=== PATIENT | female | born 1950 | race Caucasian/White ===

== ENCOUNTER → 2016-07-19 | Outpatient (CLI) | payer MEDICARE ==
[2016-07-19 08:09] LABS: Anion Gap 14 mmol/L; Blood Urea Nitrogen 18 mg/dL (7-17); Carbon Dioxide 26 mmol/L (22-30); Chloride 102 mmol/L (98-107); Glucose 179 mg/dL (74-99); Non-African American GFR(MDRD) >60 (>60 ml/min/1.73 sqM); Potassium 3.9 mmol/L (3.5-5.1); Sodium 142 mmol/L (137-145)
[2016-07-19 08:10] LABS: Hemoglobin A1C 7.7 % (4.2-6.1)
== END | disposition home or self-care (01) ==
LOC: LABWHC1 06:34
PROVIDERS: ATTEND Internal Medicine
DX: E11.65 Type 2 diabetes mellitus with hyperglycemia (principal)
CPT/HCPCS: 36415; 80048; 83036

== ENCOUNTER → 2017-02-06 | Outpatient (CLI) | payer MEDICARE ==
[2017-02-06 13:33] LABS: Blood Urea Nitrogen 17 mg/dL (7-17)
--- NOTE | 2017-02-06 14:45 | CT ---
EXAMINATION TYPE: CT urogram wo/w con DATE OF EXAM: 02/06/2017 COMPARISON: NONE HISTORY: Patient complains of gross hematuria x1 month. CT DLP: 3532.5 mGycm CONTRAST: Performed and with IV Contrast, patient injected with 100 mL of Omnipaque 300. CT Urography was performed with unenhanced followed by enhanced images of the kidneys, ureters and ur inary bladder. Delayed images were obtained. 3d reconstruction was perfromed at a separate work sta tion. FINDINGS: KIDNEYS/BLADDER: Large calculus within the right renal pelvis measuring 2.5 x 1.2 cm without signific ant obstructive change. There is evidence of urothelial thickening which may reflect chronic infectio n. Multiple Additional calculi may and lower pole right kidney measuring up to 7 mm. No evidence for left-sided calculus. No solid or cystic renal lesions detected. Ureters are patent bilaterally althou gh again there is right-sided urothelial thickening. Urinary bladder is unremarkable. LUNG BASES-: No visible nodule. No infiltrate. LIVER/GB: Hepatic steatosis noted. The gallbladder surgically absent. No space occupying hepatic lesion. Biliary tree is of normal caliber. PANCREAS: No inflammation. No distinct mass. SPLEEN: No splenic enlargement. No lesion seen. ADRENALS: No nodule. No thickening. BOWEL: Normal appendix. Normal bowel caliber. No inflammation. GENITAL ORGANS: No gross abnormality. LYMPH NODES: No greater than 1cm abdominal or pelvic lymph nodes are appreciated. AORTA: No significant abnormality. OSSEOUS STRUCTURES: No significant abnormality is seen. OTHER: No significant additional abnormality is seen. IMPRESSION: 1. Large calculus in the region of the right renal pelvis without obstruction. Additional right-sided renal calculi as noted. 2. Areas of urothelial thickening right renal pelvis and right ureter may reflect chronic infection.
== END | disposition home or self-care (01) ==
LOC: RADCTMAIN 13:00
PROVIDERS: ATTEND Urology
DX: N20.0 Calculus of kidney (principal); N28.89 Other specified disorders of kidney and ureter
CPT/HCPCS: 82565; 84520; 74178; 36415; 74400; Q9967

== ENCOUNTER → 2017-02-21 | Outpatient (CLI) | payer MEDICARE ==
[2017-02-21 10:52] LABS: Basophils # (A) 0.1 k/uL (0-0.2); Basophils % (A) 1 %; Eosinophils # (A) 0.1 k/uL (0-0.7); Eosinophils % (A) 2 %; HCT 44.6 % (34.0-46.0); HGB 14.6 gm/dL (11.4-16.0); Lymphocytes # (A) 1.8 k/uL (1.0-4.8); Lymphocytes % (A) 28 %; MCH 29.2 pg (25.0-35.0); MCHC 32.8 g/dL (31.0-37.0); MCV 88.9 fL (80.0-100.0); Monocytes # (A) 0.4 k/uL (0-1.0); Monocytes % (A) 6 %; Neutrophils % (A) 62 %; Platelet Count 285 k/uL (150-450); RBC 5.02 m/uL (3.80-5.40); RDW 13.5 % (11.5-15.5); WBC 6.5 k/uL (3.8-10.6)
[2017-02-21 11:01] LABS: Anion Gap 12 mmol/L; Blood Urea Nitrogen 16 mg/dL (7-17); Calcium 10.1 mg/dL (8.4-10.2); Carbon Dioxide 28 mmol/L (22-30); Chloride 101 mmol/L (98-107); Glucose 261 mg/dL (74-99); Potassium 4.4 mmol/L (3.5-5.1); Sodium 141 mmol/L (137-145)
[2017-02-21 11:37] LABS: Appearance,Urine Cloudy (Clear); Bilirubin,Urine Negative (Negative); Blood,Urine Moderate (Negative); Color,Urine Yellow; Glucose,Urine (UA) 4+ (Negative); Ketones,Urine Trace (Negative); Leukocyte Esterase,Urine Negative (Negative); Mucus,Urine Rare /hpf; Nitrite,Urine Negative (Negative); PH, Urine 5.5 (5.0-8.0); Protein,Urine 1+ (Negative); RBC,Urine >182 /hpf (0-5); Specific Gravity,Urine 1.013 (1.001-1.035); Uric Acid Crystals,Urine Few /hpf; Urobilinogen,Urine <2.0 mg/dL (<2.0); WBC,Urine 2 /hpf (0-5)
== END | disposition home or self-care (01) ==
LOC: LABPAT 10:00
PROVIDERS: ATTEND Urology
DX: Z01.818 Encounter for other preprocedural examination (principal); E11.9 Type 2 diabetes mellitus without complications; N20.0 Calculus of kidney; I10 Essential (primary) hypertension; R35.0 Frequency of micturition; R31.29 Other microscopic hematuria
CPT/HCPCS: 36415; 80048; 81001; 85025; 86850; 86900; 86901; 87086; 93005

== ENCOUNTER 2017-02-28 05:49 | Day surgery (SDC) | payer MEDICARE ==
[2017-02-20 12:00] VITALS: BMI 36.6
[~2017-02-28 05:49] MED LIST: LACTATED RINGERS 1,000 ML IV SCH; ONDANSETRON 4 MG/2 ML VIAL IVP PRN; ceFAZolin 1,000 MG in DEXTROSE/WATER 1 50ML.BAG IV ONE; fentaNYL (PF) 50 MCG/ML 2 ML AMP IV PRN
[2017-02-28 06:32] LABS: Glucose,Whole Blood 241 mg/dL (75-99)
[2017-02-28] MEDS ORDERED: INSULIN ASPART 100 UNIT/ML 1 ML 10 ML VIAL SQ ONE (07:12)
[2017-02-28] MEDS ORDERED: PROPOFOL 10 MG/ML 20 ML VIAL IV ONE (07:24)
[2017-02-28] MEDS ORDERED: fentaNYL (PF) 50 MCG/ML 2 ML AMP ONE (07:24)
[2017-02-28] MEDS ORDERED: NEOSTIGMINE 1 MG/ML 10 ML VIAL ONE (07:24)
[2017-02-28] MEDS ORDERED: MIDAZOLAM 2 MG/2 ML VIAL ONE (07:24)
[2017-02-28] MEDS ORDERED: LIDOCAINE 1% INJ 10MG/ML (20 ML MDV) ONE (07:24)
[2017-02-28] MEDS ORDERED: SUCCINYLCHOLINE CHLORIDE 100 MG/5 ML SYR IV ONE (07:24)
[2017-02-28] MEDS ORDERED: ROCURONIUM BROMIDE 10 MG/ML 10 ML VIAL IV ONE (07:24)
[2017-02-28] MEDS ORDERED: GLYCOPYRROLATE 0.2 MG/ML 2 ML VIAL ONE (07:24)
[2017-02-28] MEDS ORDERED: IOHEXOL 350 MG/ML (PER ML) 100ML BTL MISCELLANE ONE (07:53)
[2017-02-28] MEDS ORDERED: SODIUM CHLORIDE 0.9% 1,000 ML BAG IV ONE (07:53)
--- NOTE | 2017-02-28 08:01 | XR ---
EXAMINATION TYPE: XR KUB DATE OF EXAM: 02/28/2017 6:40 AM CLINICAL HISTORY: Presurgical study. Right-sided kidney stones. TECHNIQUE: Two supine KUB images of the abdomen are obtained. COMPARISON: CT urogram February 06, 2017 FINDINGS: Large right staghorn calculus is less well-seen but still felt present L4 level measuring r oughly 2.5 cm transversely. Smaller calculi lower pole level are redemonstrated, approximately 3-5 ca lculi are confirmed on CT. No left-sided nephrolithiasis. A few pelvic phleboliths are noted. There is overall nonobstructive bowel gas pattern. Visualized osseous structures are intact. Moderate joint space loss and mild spurring in both hips is seen. IMPRESSION: Right-sided nephrolithiasis likely stable.
[2017-02-28] MEDS ORDERED: MAG HYDROX/AL HYDROX/SIMETH 30 ML CUP PO PRN (09:02)
[2017-02-28] MEDS ORDERED: ONDANSETRON 4 MG/2 ML VIAL IVP PRN (09:02)
[2017-02-28] MEDS ORDERED: ACETAMINOPHEN TAB 325 MG TAB PO PRN (09:02)
[2017-02-28] MEDS ORDERED: NALOXONE 0.4 MG/ML 1 ML VIAL IV PRN (09:04)
[2017-02-28] MEDS ORDERED: HYDROmorphone PCA 5 MG/25 ML SYRINGE IV PRN (09:04)
[2017-02-28] MEDS ORDERED: KETOROLAC 30 MG/ML 1 ML VIAL IVP PRN (09:04)
--- NOTE | 2017-02-28 09:11 | P.OP ---
Date of Procedure: 02/28/17 Preoperative Diagnosis: Right renal calculus large Postoperative Diagnosis: same Procedure(s) Performed: Cystoscopy, placement of occluding balloon catheter right, percutaneous nephrostomy (Dr. Cohn) percutaneous nephrostolithotomy with ultrasound and laser of 10-Lao J nephrostomy tube. Anesthesia: GETA Surgeon: Harry Benitez Estimated Blood Loss (ml): 50 Pathology: other (Stone) Condition: stable Disposition: PACU Indications for Procedure: The patient is a 66-year-old female with a history of uric acid nephrolithiasis. She came recently with gross hematuria. CT urogram identified a very large, 3 cm left renal stone with satellites. She comes for percutaneous nephrostolithotomy. Description of Procedure: The patient is brought to the operating suite she is given a general endotracheal anesthesia on the transport gurney. She's placed in a frog position with a sterile prep and drape. Cystoscopy with Foroblique lens and 22- Lao sheath identifies a normal urethra. The right ureteral orifice is identified and intubated with a occluding balloon catheter. The patient is placed in a prone position with care to airways and extremities. Dr. Cohn of radiology performed percutaneous access to the right lower pole calyx. The track was dilated to 30-Lao. I introduced the working sheath into the kidney. The semirigid scope I remove clot. The small lower pole fragments are identified and removed with grasping forceps. With ultrasound the large 3 cm renal pelvic stone was identified can and removed with either ultrasound or grasping forceps. Removing the large stone I passed the flexible nephroscope throughout the collecting system and with the stone basket remove 2 or 3 more fragments. The procedure there is no remaining fragments identified. A 10-Lao J nephrostomy tube was placed over the working wire. It coils in the renal pelvis confirmed fluoroscopically. It is secured to the skin with 2- 0 silk. The working sheath is removed. The patient's awake and returned recovery in good condition. Proximate 50 mL. She tolerated procedure well and will be in the hospital postoperatively.
[2017-02-28] MEDS ORDERED: LABETALOL SYRINGE 5 MG/ML IVP ONE ×3 (09:28→11:20)
[2017-02-28 09:47] LABS: Glucose,Whole Blood 277 mg/dL (75-99)
[2017-02-28] MEDS ORDERED: HYDROmorphone 2 MG/ML 1 ML SYRINGE IVP ONE ×4 (09:55→12:49)
[2017-02-28] MEDS ORDERED: ONDANSETRON 4 MG/2 ML VIAL IVP ONE (09:55)
--- NOTE | 2017-02-28 09:58 | FL ---
EXAMINATION TYPE: FL Perc Nephrostomy New Access DATE OF EXAM: 02/28/2017 COMPARISON: CT 2017 HISTORY: Right kidney stone, ureteral obstruction with right staghorn calculus. PROCEDURE: Maximal barrier technique was utilized. The skin overlying the right kidney was localized using fluo roscopy and the overlying skin prepped and draped. Lidocaine used for local anesthesia. Skin brianna w as made with a scalpel. Access was gained under fluoroscopy, following placement of a ureteral occlu april balloon by the referring clinician and instillation of air in the renal collecting system with a 21-gauge needle to the kidney. A suitable posterior calyx was chosen. A 0.018 inch wire was Myla. The access site was dilated and subsequently a sheath was advanced into the renal pelvis follow ing dilation with balloon along the tract. Urine returned in the hub of the catheter. The patient und erwent nephrolithotomy by the referring clinician. The patient remained in stable condition without complication. The patient was discharged to observation. IMPRESSION: STATUS POST NEPHROSTOMY PLACEMENT FOR NEPHROLITHOTOMY WITH FLUOROSCOPIC GUIDANCE. THIS PROCEDURE PER FORMED BY THE UNDERSIGNED.
[2017-02-28] MEDS ORDERED: ENALAPRILAT 1.25 MG/ML 1 ML VIAL IVP ONE (10:12)
[2017-02-28] MEDS ORDERED: hydrALAZINE HCL 20 MG/ML 1 ML VIAL IVP ONE (10:34)
[2017-02-28] MEDS ORDERED: METOCLOPRAMIDE 5 MG/ML 2 ML VIAL IVP ONE (11:10)
[2017-02-28] MEDS: LACTATED RINGERS 1,000 ML IV SCH ×2 (14:03→14:05)
[2017-02-28] MEDS: INSULIN ASPART 100 UNIT/ML 1 ML 10 ML VIAL SQ SCH ×3 (14:04→20:45)
[2017-02-28] MEDS: SODIUM CHLORIDE 0.45% 1,000 ML IV SCH (14:15)
[2017-02-28 15:26] VITALS: RESP 18
[2017-02-28 16:48] LABS: Glucose,Whole Blood 289 mg/dL (75-99)
--- NOTE | 2017-02-28 17:32 | P.CONS ---
History of Present Illness - Reason for Consult Consult date: 02/28/17 medical management - Chief Complaint stone - History of Present Illness 66-year-old female that was admitted after cystoscopy included balloon catheter placement and percutaneous nephrostomy ,percutaneous nephrolithotomy. Patient admitted for surgery. Currently just complaining of some pain at the site where the nephrostomy tube was placed. Denies any chest pain or palpitations no shortness of breath. She says this has been diagnosed since Thanksgiving Review of Systems Constitutional: Denies chills, Denies fever Eyes: denies diplopia, denies itching Ears, nose, mouth and throat: Denies headache Cardiovascular: Denies chest pain, Denies shortness of breath Respiratory: Denies cough, Denies excessive sputum, Denies pleurisy Gastrointestinal: Reports nausea, Denies diarrhea, Denies hematochezia Genitourinary: Reports flank pain, Reports hematuria Musculoskeletal: Denies limitation of motion, Denies myalgias Integumentary: Denies pruritus, Denies rash Neurological: Denies head injury, Denies tingling, Denies vertigo Psychiatric: Denies depression Endocrine: Denies cold intolerance, Denies polyphagia, Denies polyuria Allergic/Immunologic: Denies urticaria, Denies wheezing Past Medical History Past Medical History: CVA/TIA, Diabetes Mellitus, Hypertension Additional Past Medical History / Comment(s): ?TIA (6 YRS AGO), PERICARDITIS., ARTHRITIS LOWER BACK., KIDNEY STONES. History of Any Multi-Drug Resistant Organisms: None Reported Past Surgical History: Section, Cholecystectomy, Joint Replacement, Orthopedic Surgery Additional Past Surgical History / Comment(s): CRISTINE KNEE ARTHROSCOPY, TOTAL RIGHT KNEE, LEFT ROTATOR CUFF, RIGHT FROZEN SHOULDER, EXP LAP WITH SCRAPING OF ENDOMETRIOSIS., RIGHT KIDNEY STONE SURGERY. Past Anesthesia/Blood Transfusion Reactions: No Reported Reaction Past Psychological History: No Psychological Hx Reported Smoking Status: Never smoker Past Alcohol Use History: Rare Past Drug Use History: None Reported - Past Family History Mother Family Medical History: No Reported History Medications and Allergies Home Medications Medication Instructions Recorded Confirmed Type Losartan/Hydrochlorothiazide 1 each PO DAILY 02/20/17 02/28/17 History [Losartan-Hctz 100-25 mg Tab] Metoprolol Succinate (ER) [Toprol 100 mg PO DAILY 02/20/17 02/28/17 History Xl] cloNIDine HCL [Catapres] 0.1 mg PO BID 02/20/17 02/28/17 History glipiZIDE [Glucotrol] 5 mg PO BID 02/20/17 02/28/17 History metFORMIN HCL [Glucophage] 1,000 mg PO BID 02/20/17 02/28/17 History Allergies Allergy/AdvReac Type Severity Reaction Status Date / Time No Known Allergies Allergy Verified 02/28/17 06:18 Physical Exam Vitals: Vital Signs Temp Pulse Resp BP BP Pulse Ox 02/28/17 15:26 97.7 F 90 18 183/97 96 02/28/17 13:15 86 16 141/65 94 L 02/28/17 13:10 83 18 146/64 94 L 02/28/17 12:15 85 16 169/65 95 02/28/17 12:00 83 16 155/66 95 02/28/17 11:30 80 16 177/82 95 02/28/17 11:23 82 16 192/86 94 L 02/28/17 11:00 82 16 181/80 96 02/28/17 10:22 75 16 195/93 94 L 02/28/17 10:00 73 18 182/84 96 02/28/17 09:30 78 18 165/81 94 L 02/28/17 09:24 78 16 178/85 94 L 02/28/17 09:15 79 16 179/91 93 L 02/28/17 09:00 98.0 F 79 16 188/95 94 L 02/28/17 06:26 97.5 F L 89 16 163/90 94 L Intake and Output 02/28/17 02/28/17 02/28/17 06:59 14:59 22:59 Intake Total 100 700 Output Total 1075 Balance 100 -375 Intake: IV 100 700 Output: Urine 900 Estimated Blood Loss 175 Other: Voiding Method Indwelling Catheter Weight 99.79 kg Patient Weight 03/01/17 06:59 Weight 99.79 kg - Constitutional General appearance: no acute distress - EENT Eyes: EOMI, PERRLA - Neck Neck: no lymphadenopathy, normal ROM, no rigidity - Respiratory Respiratory: bilateral: CTA, negative: rales, rhonchi, wheezing - Cardiovascular Rhythm: regular Heart sounds: normal: S1, S2 - Gastrointestinal General gastrointestinal: normal bowel sounds - Integumentary Integumentary: no cellulitis, normal, no pale, no rash - Neurologic Neurologic: CNII-XII intact - Musculoskeletal Musculoskeletal: gait normal - Psychiatric Psychiatric: A&O x's 3, appropriate affect, intact judgment & insight Results Labs: Abnormal Lab Results - Last 24 Hours (Table) 02/28/17 02/28/17 02/28/17 Range/Units 06:24 09:36 16:46 POC Glucose (mg/dL) 241 H 277 H 289 H (75-99) mg/dL Assessment and Plan (1) Renal calculus Narrative/Plan: s/p nephrostomy tube s/p nephrolithotomy per Dr Russell Current Visit: Yes Status: Acute Code(s): N20.0 - CALCULUS OF KIDNEY SNOMED Code(s): 50240465 (2) Diabetes mellitus Narrative/Plan: acck ac and Hs on metformin,glipizide Current Visit: Yes Status: Acute Code(s): E11.9 - TYPE 2 DIABETES MELLITUS WITHOUT COMPLICATIONS SNOMED Code(s): 87187097 (3) Hypertension Narrative/Plan: uncontrolled continue toprolxl,clonidine,losartan/hctz Current Visit: Yes Status: Acute Code(s): I10 - ESSENTIAL (PRIMARY) HYPERTENSION SNOMED Code(s): 05858459
[2017-02-28] MEDS: cloNIDine HCL 0.1 MG TAB PO SCH (20:02)
[2017-02-28 20:34] LABS: Glucose,Whole Blood 253 mg/dL (75-99)
[2017-02-28] MEDS: glipiZIDE 5 MG TAB PO SCH (20:37)
[2017-03-01] MEDS: SODIUM CHLORIDE 0.45% 1,000 ML IV SCH ×2 (00:12→12:38)
[2017-03-01] MEDS ORDERED: cloNIDine HCL 0.2 MG TAB PO STA (00:22)
[2017-03-01 06:10] LABS: Glucose,Whole Blood 183 mg/dL (75-99)
[2017-03-01] MEDS: INSULIN ASPART 100 UNIT/ML 1 ML 10 ML VIAL SQ SCH ×2 (06:34→12:37)
[2017-03-01] MEDS ORDERED: METOPROLOL SUCCINATE (ER) 100 MG TAB.ER.24H PO SCH (09:00)
[2017-03-01] MEDS ORDERED: LOSARTAN-HCTZ 50-12.5 MG 1 EACH TAB PO SCH (09:00)
[2017-03-01] MEDS: cloNIDine HCL 0.1 MG TAB PO SCH (10:00)
[2017-03-01] MEDS: glipiZIDE 5 MG TAB PO SCH (10:01)
--- NOTE | 2017-03-01 11:09 | P.PN ---
Subjective Progress Note Date: 03/01/17 Principal diagnosis: humeral fracture Pain better controlled, no nausea, no vomiting Objective - Vital Signs Vital signs: Vital Signs Temp 97.8 F 03/01/17 08:00 Pulse 72 03/01/17 10:09 Resp 18 03/01/17 10:09 BP 121/51 03/01/17 08:00 Pulse Ox 95 03/01/17 08:00 Intake & Output 02/28/17 03/01/17 03/01/17 18:59 06:59 18:59 Intake Total 383 667 6296 Output Total 1475 1475 Balance -685 -650 1020 Weight 99.79 kg 99.2 kg Intake: IV 700 Intake, IV Titration 825 Amount Sodium Chloride 0.45% 1, 825 000 ml @ 75 mls/hr IV . [id number] DORIS Rx#:[id number] Oral 90 1020 Output: Drainage 275 Right 275 Urine 1300 1200 Estimated Blood Loss 175 Other: Voiding Method Indwelling Catheter Indwelling Catheter Indwelling Catheter - Exam gen:alert ox3 lungs:CTAx2 heart s1s2 abd:soft and dep ext: no edema - Labs Labs: Abnormal Lab Results - Last 24 Hours (Table) 02/28/17 02/28/17 03/01/17 Range/Units 16:46 20:33 06:09 POC Glucose (mg/dL) 289 H 253 H 183 H (75-99) mg/dL Assessment and Plan (1) Renal calculus Narrative/Plan: s/p nephrostomy tube s/p nephrolithotomy per Dr Russell Current Visit: Yes Status: Acute Code(s): N20.0 - CALCULUS OF KIDNEY SNOMED Code(s): 60611749 (2) Diabetes mellitus Narrative/Plan: uncontrolled patient says that she has been trying with Dr Gregory her PCP. Her diabetes has been uncontrolled for some time. She says they have been tryimg. She would like to follow up with regarding this issue Current Visit: Yes Status: Acute Code(s): E11.9 - TYPE 2 DIABETES MELLITUS WITHOUT COMPLICATIONS SNOMED Code(s): 81451586 (3) Hypertension Narrative/Plan: controlled continue toprolxl,clonidine,losartan/hctz Current Visit: Yes Status: Acute Code(s): I10 - ESSENTIAL (PRIMARY) HYPERTENSION SNOMED Code(s): 02164386
[2017-03-01 11:27] VITALS: BP 116/64; PULSE 60; TEMP 96.7
[2017-03-01 11:30] LABS: Glucose,Whole Blood 268 mg/dL (75-99)
--- NOTE | 2017-03-01 12:35 | P.DS ---
Providers Attending physician: Harry Benitez Consults: 02/28/17 12:32 Consult Physician Urgent Consulting Provider: Zoë Varela Consult Reason/Comments: MEDICAL MANAGEMENT Do you want consulting provider notified?: Yes Primary care physician: [facility] Course: The patient was brought into the hospital [id number] for a right percutaneous nephrostolithotomy. She underwent this uneventfully. She did have perioperative hypertension. She was seen by medicine for Dr. Gregory. Her blood pressure has normalized. She will be discharged home on the same medications that she was on at home. A prescription for Tylenol with Codeine has been written. She will go home with the nephrostomy tube. She'll follow- up Sunday for nephrostomy tube removal. Postoperative instructions have been given. Condition is good. Patient Condition at Discharge: Good Plan - Discharge Summary Discharge Rx Participant: No New Discharge Prescriptions: New Acetaminophen-Codeine 300-30mg [Tylenol #3] 1 tab PO Q4H PRN #20 tablet PRN Reason: Pain No Action metFORMIN HCL [Glucophage] 1,000 mg PO BID glipiZIDE [Glucotrol] 5 mg PO BID cloNIDine HCL [Catapres] 0.1 mg PO BID Metoprolol Succinate (ER) [Toprol Xl] 100 mg PO DAILY Losartan/Hydrochlorothiazide [Losartan-Hctz 100-25 mg Tab] 1 each PO DAILY Discharge Medication List Losartan/Hydrochlorothiazide [Losartan-Hctz 100-25 mg Tab] 1 each PO DAILY 02/20 [History] Metoprolol Succinate (ER) [Toprol Xl] 100 mg PO DAILY 02/20/17 [History] cloNIDine HCL [Catapres] 0.1 mg PO BID 02/20/17 [History] glipiZIDE [Glucotrol] 5 mg PO BID 02/20/17 [History] metFORMIN HCL [Glucophage] 1,000 mg PO BID 02/20/17 [History] Acetaminophen-Codeine 300-30mg [Tylenol #3] 1 tab PO Q4H PRN #20 tablet [Rx] Follow up Appointment(s)/Referral(s): Harry Benitez MD [STAFF PHYSICIAN] - 03/05/17 Activity/Diet/Wound Care/Special Instructions: Home with nephrostomy tube. May shower, cover dressing with plastic wrap or change dressing. Discharge Disposition: HOME SELF-CARE
[2017-03-01 17:14] LABS: Hemoglobin A1C 8.6 % (4.0-6.0)
[2017-03-02] MEDS ORDERED: metFORMIN 500 MG TAB PO SCH (07:30)
== END 2017-03-01 13:45 | disposition home or self-care (01) ==
LOC: OR 05:49 → 4FBP 08:52 → 6SEL 13:03 → OR 03-01 13:45
PROVIDERS: ATTEND Urology
DX: N20.0 Calculus of kidney (principal); I10 Essential (primary) hypertension; E11.65 Type 2 diabetes mellitus with hyperglycemia; Z79.84 Long term (current) use of oral hypoglycemic drugs; Z79.899 Other long term (current) drug therapy; Z86.73 Personal history of transient ischemic attack (TIA), and cerebral infarction without residual deficits
CPT/HCPCS: 82365; 83036; 50432; 74018; 50081; C1769 ×3; C2628; C1894; C1729; J2250; J1170; J0360; J2710; J2765; Q9967; J2405; J2001; J3010; J1885; J0330; J2704; 86850; 86900; 86901

== ENCOUNTER → 2017-12-06 | Outpatient (CLI) | payer MEDICARE ==
--- NOTE | 2017-12-07 11:50 | MM ---
Reason for exam: screening (asymptomatic). Last mammogram was performed 1 year and 1 month ago. History: Patient is postmenopausal. Physical Findings: A clinical breast exam by your physician is recommended on an annual basis and results should be correlated with mammographic findings. MG 3D Screening Mammo W/Cad Bilateral CC and MLO view(s) were taken. XCCL view(s) were taken of the right breast. Prior study comparison: November 08, 2016, mammogram, performed at [facility]. August 06, 2015, mammogram, performed at [facility]. There are scattered fibroglandular densities. There is a retroareolar 4mm mass upper outer quadrant on the left appears similar to the priors. No suspicious abnormality. No significant changes when compared with prior studies. ASSESSMENT: Benign, BI-RAD 2 RECOMMENDATION: Routine screening mammogram of both breasts in 1 year.
== END | disposition home or self-care (01) ==
LOC: RADMAMWWP 14:23
PROVIDERS: ATTEND Internal Medicine
DX: Z12.31 Encounter for screening mammogram for malignant neoplasm of breast (principal)
CPT/HCPCS: 77063; 77067

== ENCOUNTER → 2019-09-12 | Outpatient (CLI) | payer MEDICARE ==
--- NOTE | 2019-09-16 08:26 | MM ---
Reason for exam: screening (asymptomatic). Last mammogram was performed 1 year and 9 months ago. History: Patient is postmenopausal. Physical Findings: A clinical breast exam by your physician is recommended on an annual basis and results should be correlated with mammographic findings. MG Screening Mammo w CAD Bilateral CC and MLO view(s) were taken. Prior study comparison: December 06, 2017, bilateral MG 3d screening mammo w/cad. November 08, 2016, mammogram, performed at [facility]. There are scattered fibroglandular densities. Benign appearing bilateral calcifications. No significant changes when compared with prior studies. ASSESSMENT: Benign, BI-RAD 2 RECOMMENDATION: Routine screening mammogram of both breasts in 1 year.
== END | disposition home or self-care (01) ==
LOC: RADMAMWWP 07:32
PROVIDERS: ATTEND Internal Medicine
DX: Z12.31 Encounter for screening mammogram for malignant neoplasm of breast (principal)
CPT/HCPCS: 77067

== ENCOUNTER 2019-10-30 11:46 | Inpatient (IN) | payer MEDICARE ==
[2019-10-30] MEDS ORDERED: NITROGLYCERIN SL TABS 0.4 MG TAB SUBLINGUAL PRN ×2 (12:07→13:21)
[2019-10-30] MEDS ORDERED: ASPIRIN 81 MG PO STA (12:07)
[2019-10-30] MEDS ORDERED: HEPARIN SODIUM,PORCINE 5,000 UNIT/ML 1 ML VIAL IV STA (12:07)
--- NOTE | 2019-10-30 12:13 | ED ---
General Adult HPI - General Chief complaint: Chest Pain Stated complaint: Chest pain Time Seen by Provider: 10/30/19 12:04 Source: patient, family Mode of arrival: wheelchair Limitations: no limitations - History of Present Illness Initial comments: Dictation was produced using [employer] dictation software. please excuse any grammatical, word or spelling errors. This patient was cared for during a federal and state declared state of emergency secondary to Covid 19 Chief Complaint: 69-year-old male presents with chest pain since yesterday. History of Present Illness: 69-year-old female since yesterday she's been having chest pain. Patient states that the pain is like a pressure that radiates to her back and goes down her left upper extremity. She states like a pressure like sensation. She states that sometimes her some sharp component to it. Patient has history of pericarditis in 1997. She denies any history of coronary artery disease. She does not smoke. She has history of diabetes and hypertension and CVA. Patient states she does feel some slight nausea and clamminess however denies any overt diaphoresis. She denies any numbness to her arms or legs. The ROS documented in this emergency department record has been reviewed and confirmed by me. Those systems with pertinent positive or negative responses have been documented in the HPI. All other systems are other negative and/or noncontributory. PHYSICAL EXAM: General Impression: Alert and oriented x3, not in acute distress HEENT: Normocephalic atraumatic, extra-ocular movements intact, pupils equal and reactive to light bilaterally, mucous membranes moist. Cardiovascular: Heart regular rate and rhythm, no murmurs Chest: Able to complete full sentences, no retractions, no tachypnea, clear to auscultation bilaterally Abdomen: abdomen soft, non-tender, non-distended, no organomegaly Musculoskeletal: Pulses present and equal in all extremities, no peripheral edema Motor: no focal deficits noted Neurological: CN II-XII grossly intact, no focal motor or sensory deficits noted Skin: Intact with no visualized rashes Psych: Normal affect and mood ED course: 59 y old female presents with chest pain. As upon arrival shows heart rate of 109, worse vital signs within acceptable limits. Patient is not hypoxic. She does not appear dyspneic. EKG is concerning for ST segment elevation [place]. Code STEMI was paged. Patient given aspirin and started on heparin. Patient will be admitted to [facility]. 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 EKG interpretation: Ventricular rate 108, sinus tachycardia, NH interval 180, QRS 104, QTC 477. No NH prolongation, no QTC prolongation. Diffuse ST elevations in V2 through V6 with depressions in inferior leads. - Related Data Home Medications Medication Instructions Recorded Confirmed Losartan/Hydrochlorothiazide 1 each PO DAILY 02/20/17 12/24/18 [Losartan-Hctz 100-25 mg Tab] Metoprolol Succinate (ER) [Toprol 100 mg PO DAILY 02/20/17 12/24/18 Xl] cloNIDine HCL [Catapres] 0.1 mg PO BID 02/20/17 12/24/18 glipiZIDE [Glucotrol] 5 mg PO BID 02/20/17 12/24/18 metFORMIN HCL [Glucophage] 1,000 mg PO BID 02/20/17 12/24/18 Cinnamon Bark [Cinnamon] 1 tab PO DAILY 12/24/18 12/24/18 Previous Rx's Medication Instructions Recorded Acetaminophen-Codeine 300-30mg 1 tab PO Q4H PRN #20 tablet 03/01/17 [Tylenol #3] Allergies Allergy/AdvReac Type Severity Reaction Status Date / Time No Known Allergies Allergy Verified 10/30/19 11:50 Review of Systems ROS Statement: Those systems with pertinent positive or pertinent negative responses have been documented in the HPI. ROS Other: All systems not noted in ROS Statement are negative. Past Medical History Past Medical History: CVA/TIA, Diabetes Mellitus, Hypertension Additional Past Medical History / Comment(s): ?TIA (6 YRS AGO), PERICARDITIS., ARTHRITIS LOWER BACK., KIDNEY STONES. History of Any Multi-Drug Resistant Organisms: None Reported Past Surgical History: Section, Cholecystectomy, Joint Replacement, Orthopedic Surgery Additional Past Surgical History / Comment(s): CRISTINE KNEE ARTHROSCOPY, TOTAL RIGHT KNEE, LEFT ROTATOR CUFF, RIGHT FROZEN SHOULDER, EXP LAP WITH SCRAPING OF ENDOMETRIOSIS., RIGHT KIDNEY STONE SURGERY. Past Anesthesia/Blood Transfusion Reactions: No Reported Reaction Past Psychological History: No Psychological Hx Reported Smoking Status: Never smoker Past Alcohol Use History: Rare Past Drug Use History: None Reported - Past Family History Mother Family Medical History: No Reported History General Exam Limitations: no limitations Course Vital Signs 10/30/19 11:47 Temperature 98.4 F Pulse Rate 109 H Respiratory 18 Rate Blood Pressure 160/86 O2 Sat by Pulse 96 Oximetry Disposition Clinical Impression: STEMI (ST elevation myocardial infarction) Disposition: ADMITTED IP TO THIS HOSP Condition: Critical Referrals: None,Stated [Primary Care Provider] - 1-2 days Decision Time: 12:19
[2019-10-30] MEDS ORDERED: ATORVASTATIN 80 MG TAB PO STA (12:15)
[2019-10-30] MEDS ORDERED: NALOXONE 0.4 MG/ML 1 ML VIAL IV PRN (12:16)
[2019-10-30 12:20] LABS: Basophils % (A) 0 %; Eosinophils # (A) 0.2 k/uL (0-0.7); Eosinophils % (A) 2 %; HCT 47.5 % (34.0-46.0); HGB 15.6 gm/dL (11.4-16.0); Lymphocytes # (A) 1.3 k/uL (1.0-4.8); Lymphocytes % (A) 11 %; MCH 28.5 pg (25.0-35.0); MCHC 32.8 g/dL (31.0-37.0); MCV 86.9 fL (80.0-100.0); Mean Platelet Volume 7.2; Monocytes # (A) 0.6 k/uL (0-1.0); Monocytes % (A) 5 %; Neutrophils # (A) 9.5 k/uL (1.3-7.7); Neutrophils % (A) 80 %; Platelet Count 273 k/uL (150-450); RBC 5.47 m/uL (3.80-5.40); RDW 12.2 % (11.5-15.5); WBC 11.8 k/uL (3.8-10.6)
[2019-10-30] MEDS ORDERED: fentaNYL (PF) 50 MCG/ML 2 ML AMP ONE (12:25)
[2019-10-30 12:28] LABS: ALT 46 U/L (4-34); AST 140 U/L (14-36); African American GFR (CKD) >90 (>60 ml/min/1.73 sqM); Albumin 3.8 g/dL (3.5-5.0); Alkaline Phosphatase 92 U/L (38-126); Anion Gap 8 mmol/L; Blood Urea Nitrogen 17 mg/dL (7-17); Calcium 10.8 mg/dL (8.4-10.2); Carbon Dioxide 28 mmol/L (22-30); Chloride 98 mmol/L (98-107); Glucose 293 mg/dL (74-99); Non-African American GFR(CKD) >90 (>60 ml/min/1.73 sqM); Potassium 3.7 mmol/L (3.5-5.1); Sodium 134 mmol/L (137-145); Total Bilirubin 2.7 mg/dL (0.2-1.3); Total Protein 6.7 g/dL (6.3-8.2)
[2019-10-30] MEDS ORDERED: METOPROLOL TARTRATE 5 MG/5 ML VIAL IVP ONE ×2 (12:29→12:30)
[2019-10-30 12:30] LABS: Partial Thromboplastin Time 22.2 sec (22.0-30.0); Prothrombin Time 10.1 sec (9.0-12.0)
[2019-10-30] MEDS ORDERED: LIDOCAINE 1% INJ 10MG/ML (20 ML MDV) SQ ONE (12:30)
[2019-10-30] MEDS ORDERED: MIDAZOLAM 2 MG/2 ML VIAL IVP ONE (12:30)
[2019-10-30] MEDS ORDERED: fentaNYL (PF) 50 MCG/ML 2 ML AMP IVP ONE (12:30)
[2019-10-30] MEDS ORDERED: VERAPAMIL SYRINGE (5 MG/10 ML) INTRAARTER ONE (12:30)
[2019-10-30] MEDS ORDERED: HEPARIN SODIUM 1,000 UN/ML (10ML VL) IV ONE (12:30)
[2019-10-30] MEDS ORDERED: IV FLUID CONTINUATION 1,000 ML IV ONE (12:36)
--- NOTE | 2019-10-30 12:39 | XR ---
EXAMINATION TYPE: XR chest 1V portable DATE OF EXAM: 10/30/2019 CLINICAL HISTORY: Chest pain TECHNIQUE: Upright portable view of the chest COMPARISON: None FINDINGS: Cardiomegaly, pulmonary vascular congestion, and pulmonary edema. No pleural effusion. No pneumothorax. Osseous structures are intact. IMPRESSION: Findings likely represent CHF.
[2019-10-30] MEDS ORDERED: TICAGRELOR 90 MG TAB ONE (12:40)
[2019-10-30] MEDS ORDERED: TICAGRELOR 90 MG TAB PO ONE (12:42)
[2019-10-30] MEDS: NITROGLYCERIN 1000MCG/10ML SYRINGE INTRACORON ONE ×2 (12:51→13:04)
[2019-10-30] MEDS ORDERED: niCARdipine 25 MG/10 ML VIAL ONE (13:01)
[2019-10-30] MEDS ORDERED: FUROSEMIDE 10 MG/ML 4 ML VIAL ONE (13:04)
[2019-10-30] MEDS ORDERED: niCARdipine Syringe (1,000 mcg/10 mL) INTRACORON ONE (13:04)
[2019-10-30] MEDS ORDERED: IOPAMIDOL-370 125ML BTL INJ ONE (13:04)
[2019-10-30] MEDS ORDERED: FUROSEMIDE 10 MG/ML 2 ML VIAL IV ONE (13:09)
[2019-10-30] MEDS ORDERED: ATROPINE SULFATE 0.1 MG/ML 10ML SYRINGE IV PRN (13:21)
[2019-10-30] MEDS ORDERED: ZOLPIDEM 5 MG TAB PO PRN (13:21)
[2019-10-30] MEDS ORDERED: RX INFO: IV CONTRAST WAS GIVEN 1 EACH MISC MISCELLANE PRN (13:21)
[2019-10-30] MEDS ORDERED: MAG HYDROX/AL HYDROX/SIMETH 30 ML CUP PO PRN (13:21)
--- NOTE | 2019-10-30 13:26 | P.CRDCN ---
History of Present Illness Consult date: 10/30/19 Chief complaint: Chest pain History of present illness: This is a pleasant 69-year-old female patient with history of diabetes and hypertension and dyslipidemia resented to the hospital complaining of chest discomfort. She was in her usual state of health until earlier today when she started experiencing discomfort in the mid of the chest as a pressure on the chest. She decided to come to the emergency department where the EKG showed an acute anterior ST patient myocardial infarction. An emergent heart catheterization was advised and the patient was found to have occluded left anterior descending artery was large thrombus burden. She underwent successful stenting of the LAD along with successful aspiration thrombectomy from the left anterior descending artery with an excellent angiographic results by the end and without any complication from right radial approach. She achieved ALEC-3 flow by the end. Please note that also her LVEDP was elevated and her LVEDP was about 40 mmHg. By the end of the procedure the patient was chest pain-free. She is going to be admitted to the intensive care unit. She will be on dual antiplatelet therapy along with high intensity statin along with anti-ischemic medications. We will continue following up with the patient. An echocardiogram will be ordered Past Medical History Past Medical History: CVA/TIA, Diabetes Mellitus, Hypertension Additional Past Medical History / Comment(s): ?TIA (6 YRS AGO), PERICARDITIS., ARTHRITIS LOWER BACK., KIDNEY STONES. History of Any Multi-Drug Resistant Organisms: None Reported Past Surgical History: Section, Cholecystectomy, Joint Replacement, Orthopedic Surgery Additional Past Surgical History / Comment(s): CRISTINE KNEE ARTHROSCOPY, TOTAL RIGHT KNEE, LEFT ROTATOR CUFF, RIGHT FROZEN SHOULDER, EXP LAP WITH SCRAPING OF ENDOMETRIOSIS., RIGHT KIDNEY STONE SURGERY. Past Anesthesia/Blood Transfusion Reactions: No Reported Reaction Past Psychological History: No Psychological Hx Reported Smoking Status: Never smoker Past Alcohol Use History: Rare Past Drug Use History: None Reported - Past Family History Mother Family Medical History: No Reported History Medications and Allergies Home Medications Medication Instructions Recorded Confirmed Type Losartan/Hydrochlorothiazide 1 tab PO DAILY 02/20/17 10/30/19 History [Losartan-Hctz 100-25 mg Tab] Metoprolol Succinate (ER) [Toprol 100 mg PO DAILY 02/20/17 10/30/19 History Xl] Cinnamon Bark [Cinnamon] 1 tab PO DAILY 12/24/18 10/30/19 History Atorvastatin [Lipitor] 10 mg PO DAILY 10/30/19 10/30/19 History Insulin Glargine,Hum.rec.anlog 40 unit SQ DAILY 10/30/19 10/30/19 History [Lantus Solostar] Pioglitazone [Actos] 15 mg PO DAILY 10/30/19 10/30/19 History Repaglinide [Prandin] 1 mg PO AC-TID 10/30/19 10/30/19 History Allergies Allergy/AdvReac Type Severity Reaction Status Date / Time No Known Allergies Allergy Verified 10/30/19 11:50 Physical Exam Vitals: Vital Signs Temp Pulse Resp BP Pulse Ox 10/30/19 12:06 109 H 18 149/100 96 10/30/19 11:47 98.4 F 109 H 18 160/86 96 Intake and Output 10/29/19 10/30/19 10/30/19 22:59 06:59 14:59 Intake Total 100 Balance 100 Intake: IV 100 Other: Weight 99.79 kg - Constitutional General appearance: no acute distress - Respiratory Respiratory: bilateral: CTA - Cardiovascular Rhythm: regular Heart sounds: normal: S1, S2 Results 10/30/19 12:14 10/30/19 12:14 Cardiac Enzymes 10/30/19 10/30/19 Range/Units 12:14 12:14 AST 140 H (14-36) U/L Troponin I 20.200 H* (0.000-0.034) ng/mL Coagulation 10/30/19 Range/Units 12:14 PT 10.1 (9.0-12.0) sec APTT 22.2 (22.0-30.0) sec CBC 10/30/19 Range/Units 12:14 WBC 11.8 H (3.8-10.6) k/uL RBC 5.47 H (3.80-5.40) m/uL Hgb 15.6 (11.4-16.0) gm/dL Hct 47.5 H (34.0-46.0) % Plt Count 273 (150-450) k/uL Comprehensive Metabolic Panel 10/30/19 Range/Units 12:14 Sodium 134 L (137-145) mmol/L Potassium 3.7 (3.5-5.1) mmol/L Chloride 98 (98-107) mmol/L Carbon Dioxide 28 (22-30) mmol/L BUN 17 (7-17) mg/dL Creatinine 0.36 L (0.52-1.04) mg/dL Glucose 293 H (74-99) mg/dL Calcium 10.8 H (8.4-10.2) mg/dL AST 140 H (14-36) U/L ALT 46 H (4-34) U/L Alkaline Phosphatase 92 (38-126) U/L Total Protein 6.7 (6.3-8.2) g/dL Albumin 3.8 (3.5-5.0) g/dL Current Medications Generic Name Dose Route Start Last Admin Trade Name Freq PRN Reason Stop Dose Admin Naloxone HCl 0.2 mg 10/30/19 12:16 Naloxone 0.4 Mg/Ml 1 Ml Vial IV Q2M PRN Opioid Reversal Nitroglycerin 0.4 mg 10/30/19 12:07 Nitroglycerin Sl Tabs 0.4 Mg Tab SUBLINGUAL Q5M PRN Chest Pain Intake and Output 10/29/19 10/30/19 10/30/19 22:59 06:59 14:59 Intake Total 100 Balance 100 Intake: IV 100 Other: Weight 99.79 kg Patient Weight 10/31/19 06:59 Weight 99.79 kg 10/30/19 12:14 10/30/19 12:14 Assessment and Plan Assessment: Assessment #[address] elevation myocardial infarction #2 status post a stenting of the LAD #3 diabetes type 2 #4 hypertension #5 dyslipidemia Plan #1 continue dual antiplatelet therapy along with high intensity statin #2 an echocardiogram to assess the LV function #3 ICU admission #4 follow-up with the patient Thank you for allowing us participate in her care
[2019-10-30] MEDS ORDERED: SODIUM CHLORIDE 0.9% 1,000 ML IV SCH (13:30)
[2019-10-30] MEDS ORDERED: hydrALAZINE HCL 20 MG/ML 1 ML VIAL ONE (13:36)
[2019-10-30 14:04] LABS: Glucose,Whole Blood 278 mg/dL (75-99)
[2019-10-30] MEDS ORDERED: NITROGLYCERIN-D5W PMX 50 MG in DEXTROSE/WATER 1 250ML.BAG IV SCH (14:30)
[2019-10-30] MEDS ORDERED: hydrALAZINE HCL 20 MG/ML 1 ML VIAL IVP PRN (14:34)
--- NOTE | 2019-10-30 14:43 | CC ---
CARDIAC CATHETERIZATION REPORT CARDIAC CATHETERIZATION AND PERCUTANEOUS CORONARY INTERVENTION: DATE OF SERVICE: October 30, 2019 PERFORMING PHYSICIAN: Asad Cuba MD. PROCEDURE PERFORMED: 1. Selective right and left coronary angiogram. 2. Left heart catheterization. 3. Successful stenting of the distal left anterior descending artery using 3.0 x 12 mm Xience KEVIN with an excellent angiographic results. 4. Successful stenting of the mid left anterior descending artery using 3.0 x 28 mm Xience KEVIN with an excellent angiographic results. 5. Successful stenting of the proximal left anterior descending artery using 4.0 x 28 mm Xience KEVIN with an excellent angiographic results. 6. Aspiration thrombectomy from the left anterior descending artery. 7. Left heart catheterization. INDICATION: This is a 69-year-old female patient with hypertension and dyslipidemia who presented to the emergency department with chest discomfort and was diagnosed with acute anterior ST-elevation myocardial infarction. An emergent heart catheterization was advised. APPROACH: Right radial artery. COMPLICATION: None. LEVEL OF SEDATION: Moderate with sedation length of 41 minutes. Door to balloon is 57 minutes. PROCEDURE DESCRIPTION: After obtaining informed consent, the patient was brought to the cardiac laboratory cureman. The right radial artery was cannulated using micropuncture technique, the micropuncture wire passed easily, then I placed a 6-Wolof sheath 11 cm at the right radial artery. After that, the patient was given a total of 10,000 units of heparin. Five thousand given in the laboratory cureman and previous 5000 given in the ER. Selective right and left coronary angiogram performed using JR4 diagnostic and JL3.5 guiding catheter. Left heart catheterization was performed using the JR4 catheter which crossed the aortic valve, then I did pullback across the valve. After that, I did intervene on the LAD, please see a separate paragraph for that. SELECTIVE CORONARY ANGIOGRAM: 1. The right coronary artery is a large caliber vessel and it is a dominant vessel. The proximal RCA appeared to have mild disease only. The mid RCA appeared to have a long tubular lesion in the range of 80% to 90%. The RCA distally has another tubular lesion, appeared to be in the range of 80% to 90%. as well. The RCA is calcified. 2. The left main is short but angiographically normal, it bifurcates into LCX and LAD. 3. The LCX is a large caliber vessel, it is a nondominant vessel. The proximal LCX appeared to be normal and gives rise into OM1 which is tortuous with intermediate to severe lesions involving the proximal and midportion of that OM. 4. The mid left circumflex has intermediate to severe lesions as well. The left circumflex distally appeared to be angiographically normal. 5. The left anterior descending artery, the proximal LAD has a critical lesion appeared to be in the range of 90%. The mid LAD is occluded and the LAD distally has another lesion appeared to be in the range of 70%-80%. 6. HEMODYNAMICS: The LVEDP was 14 mmHg without significant gradient across aortic valve. 7. PCI OF THE LAD: Anticoagulation was achieved with heparin only with continuous ACT monitoring throughout the procedure. After that and after engaging the left main using a JL3.5 guiding catheter, I did cross the lesion in the LAD using a run-through wire. Subsequently, aspiration thrombectomy was achieved using the [place] catheter with extraction of red thrombus. After that, I did balloon angioplasty using 3.0 x 12 mm balloon where that balloon was performed in the mid and proximal left anterior descending artery. In the mid LAD, I placed 3.5 x 28 mm Xience drug-eluting stent where the stent was positioned under fluoroscopy guidance and deployed under 14 atmospheres for 20 seconds. In the very proximal LAD, I placed 4 0 x 28 mm another Xience drug-eluting stent where the stent was positioned under fluoroscopy guidance and deployed under 14 atmospheres for 20 seconds. The following angiogram showed the lesion in the distal to the stent in the mid LAD appeared to be concerning and seems to be flow-limiting and because of that, I decided to stent that lesion. I deployed a 3.0 x 12 mm Xience drug-eluting stent where the stent was positioned under fluoroscopy guidance and deployed under 14 atmospheres for 20 seconds. The area of overlap between the 2 stents was dilated using the stent balloon. I did after that final angiogram after the patient was given nicardipine as well as nitroglycerin and that showed excellent results with ALEC-3 flow in the left anterior descending artery. CONCLUSION: 1. Acute anterior ST-elevation myocardial infarction in this 69-year-old female patient with no prior cardiac history. 2. Occluded left anterior descending artery with a large thrombus burden. I performed successful aspiration thrombectomy of the lesion in the LAD along with successful stenting of the proximal and mid and distal LAD with an excellent angiographic results. 3. Intermediate to severe disease involving the left circumflex coronary system. 4. Critical disease involving the LAD in the mid and distal portions. 5. Elevated LVEDP. POSTPROCEDURE MANAGEMENT: 1. Dual anti-platelet therapy. 2. Risk factor modifications. 3. Diuretics. 4. ICU admission. 5. PCI of the RCA to be performed in the next 24-48 hours. 6. Follow up with the patient. COLTON / LEONELN: [id number] /
[2019-10-30 15:02] LABS: Glucose,Whole Blood 290 mg/dL (75-99)
--- NOTE | 2019-10-30 16:37 | P.HPIM ---
History of Present Illness H&P Date: 10/30/19 CC-year-old female with PMH of diabetes mellitus, hypertension, history of TIA presents the ED for chest pain. Patient reports chest pain that started yesterday. Pain is left-sided, radiating to the back, left elbow and arm.. When her symptoms persisted today this prompted her to come to the ED. In the ED, she underwent extensive evaluation. Her blood pressure was elevated at 160/86. She was tachycardic to 110. CBC shows leukocytosis of 11.8. CMP showed sodium 134, creatinine 0.36, glucose 293. Calcium was 10.8. Total bilirubin 2.7, AST of 140, ALT of 46. Troponin was 20.2, EKG showing sinus tachycardia with ST elevation. Chest x-ray showed findings of CHF. Cardiology was contacted from the ED and she was taken for urgent cardiac cath. She underwent placement of stents in the distal, mid and proximal LAD along with thrombectomy. She was transferred to ICU after her cath. Patient was seen and examined in the ICU. Patient reports no more chest pain. She denies any headache, lower extremity edema, nausea or vomiting, fever chills, cough, chest pain, shortness of breath, palpitations, changes in urination or bowel habits. No changes in appetite or weight. She denies any dizziness, numbness/weakness/tingling of the extremities. Review of Systems Pertinent positives and negatives as discussed in HPI, a complete review of systems was performed and all other systems are negative. Past Medical History Past Medical History: Coronary Artery Disease (CAD), CVA/TIA, Diabetes Mellitus, GERD/Reflux, Hypertension, Osteoarthritis (OA), Renal Disease Additional Past Medical History / Comment(s): TIA approximately 8 years ago, 1997 pericarditis, IDDM type II, neuropathy bilateral feet, exertional asthma years ago, bronchitis, L lung scarring from TB, arhtritis in lower back with occasional pain, hiatal hernia, past esophageal strictures/dilations. History of Any Multi-Drug Resistant Organisms: None Reported Past Surgical History: Section, Cholecystectomy, Hysterectomy, Joint Replacement, Orthopedic Surgery Additional Past Surgical History / Comment(s): 10/30/19 PCI with stents LAD/aspiration thrombectomy, bilateral knee arthroscopies, L shoulder rotator c uff repair, R shoulder frozen shoulder/manipulation and fractured, exploratory laparoscopy with endometrial scraping, R percutaneous nephrostolithotomy twice for stones, colonoscopies/benign polypectomies, esophageal dilations, L eye cataract removal/lens implant. Past Anesthesia/Blood Transfusion Reactions: No Reported Reaction Additional Past Anesthesia/Blood Transfusion Reaction / Comment(s): Pt has received blood in past after hysterectomy without reaction Smoking Status: Never smoker - Past Family History Mother History Unknown: Yes Family Medical History: No Reported History Additional Family Medical History / Comment(s): Mother at the age of 38 yrs but pt states she never knew cause. Father Family Medical History: Myocardial Infarction (NM) Additional Family Medical History / Comment(s): Father had his first NM at the age of 65 yrs, then of a NM at the age of 83 yrs. Medications and Allergies Home Medications Medication Instructions Recorded Confirmed Type Losartan/Hydrochlorothiazide 1 tab PO DAILY 02/20/17 10/30/19 History [Losartan-Hctz 100-25 mg Tab] Metoprolol Succinate (ER) [Toprol 100 mg PO DAILY 02/20/17 10/30/19 History Xl] Cinnamon Bark [Cinnamon] 1 tab PO DAILY 12/24/18 10/30/19 History Atorvastatin [Lipitor] 10 mg PO DAILY 10/30/19 10/30/19 History Insulin Glargine,Hum.rec.anlog 40 unit SQ DAILY 10/30/19 10/30/19 History [Lantus Solostar] Pioglitazone [Actos] 15 mg PO DAILY 10/30/19 10/30/19 History Repaglinide [Prandin] 1 mg PO AC-TID 10/30/19 10/30/19 History Allergies Allergy/AdvReac Type Severity Reaction Status Date / Time No Known Allergies Allergy Verified 10/30/19 11:50 Physical Exam Vitals: Vital Signs Temp Pulse Pulse Resp BP BP Pulse Ox 10/30/19 16:15 96 19 148/85 97 10/30/19 16:00 98 18 150/96 96 10/30/19 15:45 95 21 146/93 96 10/30/19 15:30 98 18 152/87 97 10/30/19 15:15 95 16 152/87 97 10/30/19 15:00 97.7 F 99 15 154/96 97 10/30/19 14:40 103 H 143/78 10/30/19 13:35 103 H 18 163/95 96 10/30/19 13:20 110 H 20 166/93 89 L 10/30/19 12:06 109 H 18 149/100 96 10/30/19 11:47 98.4 F 109 H 18 160/86 96 Intake and Output 10/30/19 10/30/19 10/30/19 06:59 14:59 22:59 Intake Total 100 150 Output Total 850 730 Balance -750 -580 Intake: IV 100 150 Sodium Chloride 0.9% 1, 150 000 ml @ 75 mls/hr IV . [id number] [facility] Rx#:[id number] Output: Urine 850 730 Other: Weight 99.79 kg 99.79 kg General: [non toxic], [no distress], [appears at stated age] Derm: [warm], [dry] Head: [atraumatic], [normocephalic], [symmetric] Eyes: [EOMI], [no lid lag], [anicteric sclera] Mouth: [no lip lesion], [mucus membranes moist] Cardiovascular: [S1S2 reg], [no murmur], [positive posterior tibial pulse bilateral], Lungs: [CTA bilateral], [no rhonchi, no rales] , [no accessory muscle use] Abdominal: [soft], [ nontender to palpation], [no guarding], [no appreciable organomegaly] Ext: [no gross muscle atrophy], [1+ pitting lower extremity bilateral edema], [no contractures] Neuro: [ CN II-XI grossly intact], [no focal neuro deficits] Psych: [Alert], [oriented], [appropriate affect] Results CBC & Chem 7: 10/30/19 12:14 10/30/19 12:14 Labs: Abnormal Lab Results - Last 24 Hours (Table) 10/30/19 10/30/19 10/30/19 Range/Units 12:14 12:14 12:14 WBC 11.8 H (3.8-10.6) k/uL RBC 5.47 H (3.80-5.40) m/uL Hct 47.5 H (34.0-46.0) % Neutrophils # 9.5 H (1.3-7.7) k/uL Sodium 134 L (137-145) mmol/L Creatinine 0.36 L (0.52-1.04) mg/dL Glucose 293 H (74-99) mg/dL POC Glucose (mg/dL) (75-99) mg/dL Calcium 10.8 H (8.4-10.2) mg/dL Total Bilirubin 2.7 H (0.2-1.3) mg/dL AST 140 H (14-36) U/L ALT 46 H (4-34) U/L Troponin I 20.200 H* (0.000-0.034) ng/mL 10/30/19 10/30/19 Range/Units 14:01 15:01 WBC (3.8-10.6) k/uL RBC (3.80-5.40) m/uL Hct (34.0-46.0) % Neutrophils # (1.3-7.7) k/uL Sodium (137-145) mmol/L Creatinine (0.52-1.04) mg/dL Glucose (74-99) mg/dL POC Glucose (mg/dL) 278 H 290 H (75-99) mg/dL Calcium (8.4-10.2) mg/dL Total Bilirubin (0.2-1.3) mg/dL AST (14-36) U/L ALT (4-34) U/L Troponin I (0.000-0.034) ng/mL Thrombosis Risk Factor Assmnt - Choose All That Apply Any of the Below Risk Factors Present?: Yes Each Factor Represents 1 point: Acute NM, Obesity (BMI >25) Other Risk Factors: Yes Each Risk Factor Represents 2 Points: Age 61-74 years Other congenital or acquired thrombophilia - If yes, enter type in comment: No Thrombosis Risk Factor Assessment Total Risk Factor Score: 4 Thrombosis Risk Factor Assessment Level: Moderate Risk Assessment and Plan Assessment: ST elevation NM Leukocytosis Diabetes mellitus with hyperglycemia Transaminitis Hypertension History of CVA Patient had stent placement in her distal, mid and proximal LAD along with thrombectomy. Plans: Discussed with nursing, plans for repeat cath at a later date. Continue aspirin, Lipitor and Brilinta. Continue metoprolol. Telemetry monitoring. Follow cardiology recommendations. Follow-up echocardiogram. Likely reactive. No signs of infection. Plans: Continue to monitor. Repeat CBC tomorrow morning. [id number] glucose 290. Plans: Insulin sliding scale. Regular Accu-Cheks. Hypoglycemic precautions. Elevated total bilirubin, AST and ALT. Plans: Follow gallbladder ultrasound. Plans: Continue metoprolol and lisinopril. Monitor vitals and adjust medications as necessary. DVT prophylaxis: [Heparin] Discussed with: [Patient] Anticipated discharge: [2-3 days] Anticipated discharge place: [Home] A total of [45] minutes was spent on the care of this complex patient more than 50% of the time was spent in counseling and care coordination. Patient names her daughter Adelina decision maker if she can't make decisions for herself. Patient would like to be full code.
[2019-10-30 17:33] LABS: Glucose,Whole Blood 222 mg/dL (75-99)
[2019-10-30] MEDS: INSULIN ASPART (NovoLOG) 100 UNIT/ML VIAL SQ SCH ×2 (17:50→21:37)
[2019-10-30] MEDS ORDERED: Potassium Replacement Protocol 1 EACH MISC MISCELLANE PRN (19:37)
[2019-10-30] MEDS ORDERED: POTASSIUM CHLORIDE ER 20 MEQ TAB.ER PO SCH (20:00)
[2019-10-30 20:50] LABS: Glucose,Whole Blood 242 mg/dL (75-99)
[2019-10-30] MEDS: INSULIN DETEMIR (LEVEMIR) 100 UNIT/ML SYR SQ SCH (21:38)
[2019-10-30] MEDS: ATORVASTATIN 80 MG TAB PO SCH (21:43)
[2019-10-30] MEDS: TICAGRELOR 90 MG TAB PO SCH (21:43)
[2019-10-30] MEDS: METOPROLOL TARTRATE 25 MG TAB PO SCH (21:44)
[2019-10-30] MEDS: HEPARIN SODIUM,PORCINE 5,000 UNIT/ML 1 ML VIAL SQ SCH (21:46)
[2019-10-31 04:52] LABS: HCT 44.4 % (34.0-46.0); HGB 14.8 gm/dL (11.4-16.0); MCHC 33.3 g/dL (31.0-37.0); Mean Platelet Volume 6.9; Platelet Count 273 k/uL (150-450); RDW 12.2 % (11.5-15.5); WBC 13.4 k/uL (3.8-10.6)
[2019-10-31 05:01] LABS: African American GFR (CKD) >90 (>60 ml/min/1.73 sqM); Anion Gap 6 mmol/L; Blood Urea Nitrogen 17 mg/dL (7-17); Calcium 10.3 mg/dL (8.4-10.2); Carbon Dioxide 29 mmol/L (22-30); Chloride 93 mmol/L (98-107); Glucose 294 mg/dL (74-99); Non-African American GFR(CKD) >90 (>60 ml/min/1.73 sqM); Potassium 3.4 mmol/L (3.5-5.1); Sodium 128 mmol/L (137-145)
[2019-10-31] MEDS: POTASSIUM CHLORIDE ER 20 MEQ TAB.ER PO SCH ×2 (05:23→06:28)
[2019-10-31 06:40] LABS: Glucose,Whole Blood 256 mg/dL (75-99)
[2019-10-31] MEDS: INSULIN ASPART (NovoLOG) 100 UNIT/ML VIAL SQ SCH ×4 (06:41→20:43)
[2019-10-31] MEDS: HEPARIN SODIUM,PORCINE 5,000 UNIT/ML 1 ML VIAL SQ SCH ×2 (08:20→20:44)
[2019-10-31] MEDS: ASPIRIN 81 MG PO SCH (08:20)
[2019-10-31] MEDS: METOPROLOL TARTRATE 25 MG TAB PO SCH ×2 (08:21→20:44)
[2019-10-31] MEDS: lisinopriL 10 MG TAB PO SCH (08:21)
[2019-10-31] MEDS: TICAGRELOR 90 MG TAB PO SCH ×2 (08:21→20:44)
--- NOTE | 2019-10-31 08:21 | P.PN ---
Subjective Progress Note Date: 10/31/19 Principal diagnosis: Acute anterior ST elevation CA This is a 69-year-old female patient with diabetes and hypertension and dyslipidemia who presented to the hospital with a chest discomfort and was found to have an acute anterior ST elevation CA. She underwent an emergent heart catheterization and was found to have an occluded LAD with a large thrombus burden she underwent an aspiration thrombectomy of the LAD along with successful stenting of the distal and mid and proximal LAD. Also she was found to have severe disease involving the right coronary artery. She was seen today October [id number]. She is asymptomatic from a cardiovascular standpoint of view. She is hemodynamically stable and she has been maintaining normal sinus mechanism. She is on dual antiplatelet therapy along with high intensity statin along with anti-ischemic medications. From a perivascular standpoint of view, the patient can be transferred out of the intensive care unit Objective - Vital Signs Vital signs: Vital Signs Temp 97.9 F 10/31/19 08:00 Pulse 83 10/31/19 08:00 Resp 18 10/31/19 08:00 BP 118/77 10/31/19 08:00 Pulse Ox 96 10/31/19 08:00 Intake & Output 10/30/19 10/31/19 10/31/19 18:59 06:59 18:59 Intake Total 400 1075 Output Total 1645 610 45 Balance -1245 465 -45 Weight 99.79 kg 103.8 kg Intake: IV 400 75 Sodium Chloride 0.9% 1, 300 75 000 ml @ 75 mls/hr IV . [id number] [facility] Rx#:[id number] Oral 1000 Output: Urine 1645 610 45 Other: Voiding Method Indwelling Catheter Indwelling Catheter - Constitutional General appearance: Present: no acute distress - Respiratory Respiratory: bilateral: CTA - Cardiovascular Rhythm: regular Heart sounds: normal: S1, S2 - Labs CBC & Chem 7: 10/31/19 04:05 10/31/19 04:05 Labs: Abnormal Lab Results - Last 24 Hours (Table) 10/30/19 10/30/19 10/30/19 Range/Units 12:14 12:14 12:14 WBC 11.8 H (3.8-10.6) k/uL RBC 5.47 H (3.80-5.40) m/uL Hct 47.5 H (34.0-46.0) % Neutrophils # 9.5 H (1.3-7.7) k/uL Sodium 134 L (137-145) mmol/L Potassium (3.5-5.1) mmol/L Chloride (98-107) mmol/L Creatinine 0.36 L (0.52-1.04) mg/dL Glucose 293 H (74-99) mg/dL POC Glucose (mg/dL) (75-99) mg/dL Calcium 10.8 H (8.4-10.2) mg/dL Total Bilirubin 2.7 H (0.2-1.3) mg/dL AST 140 H (14-36) U/L ALT 46 H (4-34) U/L Troponin I 20.200 H* (0.000-0.034) ng/mL 10/30/19 10/30/19 10/30/19 Range/Units 14:01 15:01 17:32 WBC (3.8-10.6) k/uL RBC (3.80-5.40) m/uL Hct (34.0-46.0) % Neutrophils # (1.3-7.7) k/uL Sodium (137-145) mmol/L Potassium (3.5-5.1) mmol/L Chloride (98-107) mmol/L Creatinine (0.52-1.04) mg/dL Glucose (74-99) mg/dL POC Glucose (mg/dL) 278 H 290 H 222 H (75-99) mg/dL Calcium (8.4-10.2) mg/dL Total Bilirubin (0.2-1.3) mg/dL AST (14-36) U/L ALT (4-34) U/L Troponin I (0.000-0.034) ng/mL 10/30/19 10/31/19 10/31/19 Range/Units 20:49 04:05 04:05 WBC 13.4 H (3.8-10.6) k/uL RBC (3.80-5.40) m/uL Hct (34.0-46.0) % Neutrophils # (1.3-7.7) k/uL Sodium 128 L (137-145) mmol/L Potassium 3.4 L (3.5-5.1) mmol/L Chloride 93 L (98-107) mmol/L Creatinine 0.42 L (0.52-1.04) mg/dL Glucose 294 H (74-99) mg/dL POC Glucose (mg/dL) 242 H (75-99) mg/dL Calcium 10.3 H (8.4-10.2) mg/dL Total Bilirubin (0.2-1.3) mg/dL AST (14-36) U/L ALT (4-34) U/L Troponin I (0.000-0.034) ng/mL 10/31/19 Range/Units 06:39 WBC (3.8-10.6) k/uL RBC (3.80-5.40) m/uL Hct (34.0-46.0) % Neutrophils # (1.3-7.7) k/uL Sodium (137-145) mmol/L Potassium (3.5-5.1) mmol/L Chloride (98-107) mmol/L Creatinine (0.52-1.04) mg/dL Glucose (74-99) mg/dL POC Glucose (mg/dL) 256 H (75-99) mg/dL Calcium (8.4-10.2) mg/dL Total Bilirubin (0.2-1.3) mg/dL AST (14-36) U/L ALT (4-34) U/L Troponin I (0.000-0.034) ng/mL Assessment and Plan Assessment: Assessment #[address] elevation myocardial infarction #2 status post a stenting of the LAD #3 diabetes type 2 #4 hypertension #5 dyslipidemia Plan #1 continue dual antiplatelet therapy along with high intensity statin #2 an echocardiogram to assess the LV function #3 the patient can be transferred out of the ICU #4 follow-up with the patient Thank you for allowing us participate in her care
[2019-10-31 11:27] VITALS: BMI 38.0
[2019-10-31 11:37] LABS: Glucose,Whole Blood 278 mg/dL (75-99)
--- NOTE | 2019-10-31 12:30 | ECHOF ---
Referral Reason:STEMI MEASUREMENTS -------- HEIGHT: 165.1 cm WEIGHT: 99.8 kg BP: 149/100 IVSd: 1.7 cm (0.6 - 1.1) LVIDd: 4.4 cm (3.9 - 5.3) LVPWd: 2.0 cm (0.6 - 1.1) IVSs: 1.7 cm LVIDs: 3.5 cm LVPWs: 1.5 cm LAESV Index (A-L): 22.49 ml/m Ao Diam: 2.8 cm (2.0 - 3.7) MV EXCURSION: 17.802 mm (> 18.000) MV EF SLOPE: 155 mm/s (70 - 150) EPSS: 2.3 cm MV E Michael: 0.95 m/s MV DecT: 154 ms MV A Michael: 1.17 m/s MV E/A Ratio: 0.81 RAP: 5.00 mmHg RVSP: 27.81 mmHg FINDINGS -------- This was a technically difficult study with suboptimal views. The left ventricular size is normal. There is moderate concentric left ventricular hypertrophy. O verall left ventricular systolic function is moderate-severely impaired with, an EF between 30 - 35 % . Mitral Doppler inflow pattern suggests diastolic filling abnormality {E/E'}. Mid anteroseptal L V wall motion is hypokinetic. Apical anterior LV wall motion is hypokinetic. Apical septum LV w all motion is hypokinetic. Mid Septal hypokinesis. LARGE APICAL AKINESIS The RV was not well visualized. Normal LA size by volume 22+/-6 ml/m2. The right atrium was not well visualized. 5.0mg of Lumason was utilized for enhancement of images Interatrial and interventricular septum intact. The aortic valve was not well visualized. There is no evidence of aortic regurgitation. There is no evidence of aortic stenosis. The mitral valve was not well visualized. Mild mitral regurgitation is present. Mild tricuspid regurgitation present. There is no evidence of pulmonary hypertension. The right v entricular systolic pressure, as measured by Doppler, is 27.81mmHg. The pulmonic valve was not well visualized. The aortic root size is normal. IVC Not well visulized. There is no pericardial effusion. CONCLUSIONS -------- 1. The left ventricular size is normal. 2. There is moderate concentric left ventricular hypertrophy. 3. Overall left ventricular systolic function is moderate-severely impaired with, an EF between 30 - 35 %. 4. Mitral Doppler inflow pattern suggest diastolic filling abnormality {E/E'}. 5. Mid anteroseptal LV wall motion is hypokinetic. 6. Apical anterior LV wall motion is hypokinetic. 7. Apical septum LV wall motion is hypokinetic. 8. Mid Septal hypokinesis. 9. Mild mitral regurgitation is present. 10. Mild tricuspid regurgitation present. REPRINT SORTER: Joanie Bowling RDCS
--- NOTE | 2019-10-31 15:39 | CDI ---
Documentation Clarification Form Date: 10/31/2019 03:28:57 PM From: Marley Jenkins CCS, CCDS Admit Date: 10/30/2019 12:16:00 PM Patient Name: Pebbles Weber Visit Number: [id number] Discharge Date: ATTENTION: The Clinical Documentation Specialists (CDI) and [facility] Coding Staff appreciate your assistance in clarifying documentation. Please respond to the clarification below the line at the bottom and electronically sign. The CDI & [facility] Coding staff will review the response and follow-up if needed. Please note: Queries are made part of the Legal Health Record. If you have any questions, please contact the author of this message via ITS. Dr. Asad Cuba: Per the 10/29 History & Physical: "Chest x-ray showed findings of CHF." Per the 10/29 Cardiology Consult Plan: Ordered ECHO to assess the LV function. History/Risk Factors: CAD, IDDM II with neuropathy bilateral feet, TIA, GERD, Hypertension, Osteoarthritis. Clinical Indicators: Patient presented to the ED on 10/29 with chest pain. Taken to the label rewinder for a heart cath with PCI & stents x3 & aspiration thrombectomy LAD. VS 10/29: T 98.4, P 109^, R 18, BP 160/86^, PO 96 RA - 89 RA. BNP: Not done this admission. Troponin: 20.200^^ Echocardiogram Results 10/29: Moderate LVH, Systolic function is mod-severely impaired w/EF 30-35%, Mild MR/TR. Chest X Ray 10/29: Findings likely represent CHF. (Cardiomegaly, pulmonary vascular congestion & pulmonary edema.) Treatment 10/29: IV Lasix 20 mg x1. ICU status post Heart Cath w/PTCA & stent placement. In your professional opinion, can you please clarify the acuity and type of CHF if known? Systolic Heart Failure: o Acute ox Chronic o Acute on Chronic Other Heart Failure, please specify: Unable to Determine (Last Revision: May 2017) MTDD
--- NOTE | 2019-10-31 16:16 | P.PN ---
Subjective Progress Note Date: 10/31/19 Patient was seen and examined. No acute events overnight. Patient denies any chest pain, shortness breath or palpitations. No nausea or vomiting. No fever or chills. Objective - Vital Signs Vital signs: Vital Signs Temp 97.6 F 10/31/19 12:00 Pulse 73 10/31/19 12:00 Resp 23 10/31/19 12:00 BP 100/57 10/31/19 12:00 Pulse Ox 96 10/31/19 12:00 Intake & Output 10/30/19 10/31/19 10/31/19 18:59 06:59 18:59 Intake Total 400 1075 0 Output Total 1645 610 245 Balance -1245 465 -245 Weight 99.79 kg 103.8 kg 103.8 kg Intake: IV 400 75 0 Sodium Chloride 0.9% 1, 300 75 0 000 ml @ 75 mls/hr IV . [id number] DORIS Rx#:[id number] Oral 1000 Output: Urine 1645 610 245 Other: Voiding Method Indwelling Catheter Indwelling Catheter Bedside Commode # Voids 2 # Bowel Movements 2 - Exam General: [non toxic], [no distress], [appears at stated age] Derm: [warm], [dry] Head: [atraumatic], [normocephalic], [symmetric] Eyes: [EOMI], [no lid lag], [anicteric sclera] Mouth: [no lip lesion], [mucus membranes moist] Cardiovascular: [S1S2 reg], [no murmur], [positive posterior tibial pulse bilateral], Lungs: [CTA bilateral], [no rhonchi, no rales] , [no accessory muscle use] Abdominal: [soft], [ nontender to palpation], [no guarding], [no appreciable organomegaly] Ext: [no gross muscle atrophy], [no edema], [no contractures] Neuro: [ CN II-XI grossly intact], [no focal neuro deficits] Psych: [Alert], [oriented], [appropriate affect] - Labs CBC & Chem 7: 10/31/19 04:05 10/31/19 04:05 Labs: Abnormal Lab Results - Last 24 Hours (Table) 10/30/19 10/30/19 10/31/19 Range/Units 17:32 20:49 04:05 WBC (3.8-10.6) k/uL Sodium 128 L (137-145) mmol/L Potassium 3.4 L (3.5-5.1) mmol/L Chloride 93 L (98-107) mmol/L Creatinine 0.42 L (0.52-1.04) mg/dL Glucose 294 H (74-99) mg/dL POC Glucose (mg/dL) 222 H 242 H (75-99) mg/dL Calcium 10.3 H (8.4-10.2) mg/dL 10/31/19 10/31/19 10/31/19 Range/Units 04:05 06:39 11:36 WBC 13.4 H (3.8-10.6) k/uL Sodium (137-145) mmol/L Potassium (3.5-5.1) mmol/L Chloride (98-107) mmol/L Creatinine (0.52-1.04) mg/dL Glucose (74-99) mg/dL POC Glucose (mg/dL) 256 H 278 H (75-99) mg/dL Calcium (8.4-10.2) mg/dL Assessment and Plan Assessment: ST elevation [place] Hypokalemia Systolic CHF Leukocytosis Diabetes mellitus with hyperglycemia Transaminitis Hypertension History of CVA Patient had stent placement in her distal, mid and proximal LAD along with thrombectomy. Plans: Discussed with nursing, plans for repeat cath at a later date. Continue aspirin, Lipitor and Brilinta. Continue metoprolol. Telemetry monitoring. Follow cardiology recommendations. Potassium 3.4. Lines: Replace via protocol. Repeat BMP tomorrow morning. Echocardiogram shows EF 30-35% with moderate concentric LVH along with hypokine tic wall motion. Plans: Continue beta enrique. Continue MARIO inhibitor. Will discuss with cardiology regarding initiation of Aldactone. Likely Lasix on discharge. Likely reactive. No signs of infection. Plans: Continue to monitor. Repeat CBC tomorrow morning. [id number] glucose 278. Plans: Insulin sliding scale. Regular Accu-Cheks. Hypoglycemic precautions. Elevated total bilirubin, AST and ALT. Plans: Follow gallbladder ultrasound. Plans: Continue metoprolol and lisinopril. Monitor vitals and adjust medications as necessary. DVT prophylaxis: [Heparin] Discussed with: [Patient] Anticipated discharge: [2-3 days] Anticipated discharge place: [Home] A total of [45] minutes was spent on the care of this complex patient more than 50% of the time was spent in counseling and care coordination. Patient names her daughter Adelina decision maker if she can't make decisions for herself. Patient would like to be full code.
[2019-10-31 16:55] LABS: Glucose,Whole Blood 232 mg/dL (75-99)
[2019-10-31 20:37] LABS: Glucose,Whole Blood 232 mg/dL (75-99)
[2019-10-31] MEDS: ATORVASTATIN 80 MG TAB PO SCH (20:44)
[2019-10-31] MEDS: INSULIN DETEMIR (LEVEMIR) 100 UNIT/ML SYR SQ SCH (20:44)
[2019-11-01 05:47] LABS: Basophils % (A) 0 %; Eosinophils # (A) 0.1 k/uL (0-0.7); Eosinophils % (A) 1 %; HCT 43.7 % (34.0-46.0); HGB 14.2 gm/dL (11.4-16.0); Lymphocytes # (A) 2.4 k/uL (1.0-4.8); Lymphocytes % (A) 23 %; MCH 28.2 pg (25.0-35.0); MCHC 32.6 g/dL (31.0-37.0); MCV 86.6 fL (80.0-100.0); Mean Platelet Volume 6.8; Monocytes # (A) 0.9 k/uL (0-1.0); Monocytes % (A) 9 %; Neutrophils # (A) 6.9 k/uL (1.3-7.7); Neutrophils % (A) 65 %; Platelet Count 282 k/uL (150-450); RBC 5.05 m/uL (3.80-5.40); RDW 12.1 % (11.5-15.5); WBC 10.6 k/uL (3.8-10.6)
[2019-11-01 05:56] LABS: Potassium 3.7 mmol/L (3.5-5.1)
[2019-11-01 05:59] LABS: ALT 38 U/L (4-34); AST 70 U/L (14-36); African American GFR (CKD) >90 (>60 ml/min/1.73 sqM); Albumin 3.4 g/dL (3.5-5.0); Alkaline Phosphatase 79 U/L (38-126); Anion Gap 6 mmol/L; Blood Urea Nitrogen 28 mg/dL (7-17); Calcium 10.2 mg/dL (8.4-10.2); Carbon Dioxide 29 mmol/L (22-30); Chloride 95 mmol/L (98-107); Glucose 235 mg/dL (74-99); Non-African American GFR(CKD) >90 (>60 ml/min/1.73 sqM); Sodium 130 mmol/L (137-145); Total Bilirubin 3.5 mg/dL (0.2-1.3); Total Protein 6.2 g/dL (6.3-8.2)
[2019-11-01 06:54] LABS: Glucose,Whole Blood 237 mg/dL (75-99)
--- NOTE | 2019-11-01 07:12 | P.PN ---
Subjective Progress Note Date: 11/01/19 Principal diagnosis: Acute anterior ST elevation [place] This is a 69-year-old female patient with diabetes and hypertension and dyslipidemia who presented to the hospital with a chest discomfort and was found to have an acute anterior ST elevation [place]. She underwent an emergent heart catheterization and was found to have an occluded LAD with a large thrombus burden she underwent an aspiration thrombectomy of the LAD along with successful stenting of the distal and mid and proximal LAD. Also she was found to have severe disease involving the right coronary artery. The patient was seen today October [id number]. She remains asymptomatic. She remains hemodynamically stable. The blood work was reviewed. Echo revealed severe cardiomyopathy was EF between 30-35%. Currently she is on maximize medical treatment and I am going to add Aldactone to the current medical regim en. The patient possibly can be discharged home in the next 24 hours. Objective - Vital Signs Vital signs: Vital Signs Temp 98.6 F 11/01/19 04:00 Pulse 86 11/01/19 05:00 Resp 20 11/01/19 05:00 BP 126/74 11/01/19 04:00 Pulse Ox 94 L 11/01/19 05:00 Intake & Output 10/31/19 11/01/19 11/01/19 18:59 06:59 18:59 Intake Total 0 350 Output Total 245 375 Balance -245 -25 Weight 103.8 kg 101.9 kg Intake: IV 0 Sodium Chloride 0.9% 1, 0 000 ml @ 75 mls/hr IV . [id number] DORIS Rx#:[id number] Oral 350 Output: Urine 245 375 Other: Voiding Method Bedside Commode Bedside Commode # Voids 1 0 # Bowel Movements 1 - Constitutional General appearance: Present: no acute distress - Respiratory Respiratory: bilateral: CTA - Cardiovascular Rhythm: regular Heart sounds: normal: S1, S2 - Labs CBC & Chem 7: 11/01/19 04:58 11/01/19 04:58 Labs: Abnormal Lab Results - Last 24 Hours (Table) 10/31/19 10/31/19 10/31/19 Range/Units 11:36 16:53 20:35 Sodium (137-145) mmol/L Chloride (98-107) mmol/L BUN (7-17) mg/dL Glucose (74-99) mg/dL POC Glucose (mg/dL) 278 H 232 H 232 H (75-99) mg/dL Total Bilirubin (0.2-1.3) mg/dL AST (14-36) U/L ALT (4-34) U/L Total Protein (6.3-8.2) g/dL Albumin (3.5-5.0) g/dL 11/01/19 11/01/19 Range/Units 04:58 06:53 Sodium 130 L (137-145) mmol/L Chloride 95 L (98-107) mmol/L BUN 28 H (7-17) mg/dL Glucose 235 H (74-99) mg/dL POC Glucose (mg/dL) 237 H (75-99) mg/dL Total Bilirubin 3.5 H (0.2-1.3) mg/dL AST 70 H (14-36) U/L ALT 38 H (4-34) U/L Total Protein 6.2 L (6.3-8.2) g/dL Albumin 3.4 L (3.5-5.0) g/dL Assessment and Plan Assessment: Assessment #[address] elevation myocardial infarction #2 status post a stenting of the LAD #3 diabetes type 2 #4 hypertension #5 dyslipidemia Plan #1 continue dual antiplatelet therapy along with high intensity statin #2 add Aldactone to the current medical regimen #3 discharged home in the next 24 hours
[2019-11-01] MEDS: INSULIN ASPART (NovoLOG) 100 UNIT/ML VIAL SQ SCH ×5 (07:22→20:56)
[2019-11-01] MEDS ORDERED: POTASSIUM CHLORIDE ER 20 MEQ TAB.ER PO SCH (08:00)
[2019-11-01] MEDS: METOPROLOL TARTRATE 25 MG TAB PO SCH ×3 (08:25→20:55)
[2019-11-01] MEDS: ASPIRIN 81 MG PO SCH (08:25)
[2019-11-01] MEDS: HEPARIN SODIUM,PORCINE 5,000 UNIT/ML 1 ML VIAL SQ SCH ×2 (08:25→20:55)
[2019-11-01] MEDS: lisinopriL 10 MG TAB PO SCH (08:25)
[2019-11-01] MEDS: SPIRONOLACTONE 25 MG TAB PO SCH (08:26)
[2019-11-01] MEDS: TICAGRELOR 90 MG TAB PO SCH ×2 (08:26→20:55)
[2019-11-01 11:38] LABS: Glucose,Whole Blood 258 mg/dL (75-99)
--- NOTE | 2019-11-01 14:59 | P.PN ---
Subjective Progress Note Date: 11/01/19 Patient was seen and examined. No acute events overnight. Patient denies any chest pain, shortness breath or palpitations. No nausea or vomiting. No fever or chills. Friend at bedside. Objective - Vital Signs Vital signs: Vital Signs Temp 97.8 F 11/01/19 12:00 Pulse 73 11/01/19 12:00 Resp 22 11/01/19 12:00 BP 103/58 11/01/19 12:00 Pulse Ox 95 11/01/19 12:00 Intake & Output 10/31/19 11/01/19 11/01/19 18:59 06:59 18:59 Intake Total 0 350 300 Output Total 245 375 Balance -245 -25 300 Weight 103.8 kg 101.9 kg Intake: IV 0 Sodium Chloride 0.9% 1, 0 000 ml @ 75 mls/hr IV . [id number] [facility] Rx#:[id number] Oral 350 300 Output: Urine 245 375 Other: Voiding Method Bedside Commode Bedside Commode Bedside Commode # Voids 1 0 1 # Bowel Movements 1 - Exam General: [non toxic], [no distress], [appears at stated age] Derm: [warm], [dry] Head: [atraumatic], [normocephalic], [symmetric] Eyes: [EOMI], [no lid lag], [anicteric sclera] Mouth: [no lip lesion], [mucus membranes moist] Cardiovascular: [S1S2 reg], [no murmur], [positive posterior tibial pulse bilateral], Lungs: [CTA bilateral], [no rhonchi, no rales] , [no accessory muscle use] Abdominal: [soft], [ nontender to palpation], [no guarding], [no appreciable organomegaly] Ext: [no gross muscle atrophy], [no edema], [no contractures] Neuro: [ CN II-XI grossly intact], [no focal neuro deficits] Psych: [Alert], [oriented], [appropriate affect] - Labs CBC & Chem 7: 11/01/19 04:58 11/01/19 04:58 Labs: Abnormal Lab Results - Last 24 Hours (Table) 10/31/19 10/31/19 11/01/19 Range/Units 16:53 20:35 04:58 Sodium 130 L (137-145) mmol/L Chloride 95 L (98-107) mmol/L BUN 28 H (7-17) mg/dL Glucose 235 H (74-99) mg/dL POC Glucose (mg/dL) 232 H 232 H (75-99) mg/dL Total Bilirubin 3.5 H (0.2-1.3) mg/dL AST 70 H (14-36) U/L ALT 38 H (4-34) U/L Total Protein 6.2 L (6.3-8.2) g/dL Albumin 3.4 L (3.5-5.0) g/dL 11/01/19 11/01/19 Range/Units 06:53 11:37 Sodium (137-145) mmol/L Chloride (98-107) mmol/L BUN (7-17) mg/dL Glucose (74-99) mg/dL POC Glucose (mg/dL) 237 H 258 H (75-99) mg/dL Total Bilirubin (0.2-1.3) mg/dL AST (14-36) U/L ALT (4-34) U/L Total Protein (6.3-8.2) g/dL Albumin (3.5-5.0) g/dL Assessment and Plan Assessment: ST elevation [place] Hyponatremia Systolic CHF Diabetes mellitus with hyperglycemia Transaminitis Hypertension History of CVA Patient had stent placement in her distal, mid and proximal LAD along with thrombectomy. Plans: Discussed with nursing, plans for repeat cath at a later date. Continue aspirin, Lipitor and Brilinta. Continue metoprolol. Telemetry monitoring. Follow cardiology recommendations. Plans: Start Lasix by mouth. Repeat BMP tomorrow morning. Echocardiogram shows EF 30-35% with moderate concentric LVH along with hypokinetic wall motion. Plans: Continue beta enrique. Continue MARIO inhibitor. Will discuss with cardiology regarding initiation of Aldactone. Likely Lasix on discharge. [id number] glucose 258. Plans: Insulin sliding scale. Regular Accu-Cheks. Hypoglycemic precautions. Start Novolog 5 units TID with meals. Elevated total bilirubin, AST and ALT. Plans: Follow gallbladder ultrasound. Plans: Continue metoprolol and lisinopril. Monitor vitals and adjust medications as necessary. [Discussed with Dr. Cuba. Continue to monitor overnight. Plans for possible DC tomorrow.]
[2019-11-01] MEDS: FUROSEMIDE 40 MG TAB PO SCH (16:57)
[2019-11-01 17:17] LABS: Glucose,Whole Blood 278 mg/dL (75-99)
[2019-11-01 20:29] LABS: Glucose,Whole Blood 258 mg/dL (75-99)
[2019-11-01] MEDS: ATORVASTATIN 80 MG TAB PO SCH (20:55)
[2019-11-01] MEDS: INSULIN DETEMIR (LEVEMIR) 100 UNIT/ML SYR SQ SCH (20:56)
[2019-11-02 04:49] VITALS: BP 113/66
[2019-11-02 05:06] LABS: Basophils # (A) 0.1 k/uL (0-0.2); Basophils % (A) 1 %; Eosinophils # (A) 0.1 k/uL (0-0.7); Eosinophils % (A) 1 %; HCT 44.8 % (34.0-46.0); HGB 14.5 gm/dL (11.4-16.0); Lymphocytes # (A) 2.9 k/uL (1.0-4.8); Lymphocytes % (A) 30 %; MCH 28.2 pg (25.0-35.0); MCHC 32.4 g/dL (31.0-37.0); Mean Platelet Volume 7.2; Monocytes # (A) 0.7 k/uL (0-1.0); Monocytes % (A) 7 %; Neutrophils # (A) 5.8 k/uL (1.3-7.7); Neutrophils % (A) 60 %; Platelet Count 307 k/uL (150-450); RBC 5.14 m/uL (3.80-5.40); RDW 12.1 % (11.5-15.5); WBC 9.7 k/uL (3.8-10.6)
[2019-11-02 05:17] LABS: African American GFR (CKD) >90 (>60 ml/min/1.73 sqM); Anion Gap 8 mmol/L; Blood Urea Nitrogen 30 mg/dL (7-17); Calcium 10.1 mg/dL (8.4-10.2); Carbon Dioxide 27 mmol/L (22-30); Chloride 100 mmol/L (98-107); Glucose 249 mg/dL (74-99); Non-African American GFR(CKD) >90 (>60 ml/min/1.73 sqM); Sodium 135 mmol/L (137-145)
[2019-11-02 06:59] LABS: Glucose,Whole Blood 266 mg/dL (75-99)
[2019-11-02] MEDS: INSULIN ASPART (NovoLOG) 100 UNIT/ML VIAL SQ SCH ×2 (07:22)
--- NOTE | 2019-11-02 07:26 | P.PN ---
Subjective Progress Note Date: 11/02/19 Principal diagnosis: Acute anterior ST elevation [place] This is a 69-year-old female patient with diabetes and hypertension and dyslipidemia who presented to the hospital with a chest discomfort and was found to have an acute anterior ST elevation [place]. She underwent an emergent heart catheterization and was found to have an occluded LAD with a large thrombus burden she underwent an aspiration thrombectomy of the LAD along with successful stenting of the distal and mid and proximal LAD. Also she was found to have severe disease involving the right coronary artery. The patient was seen today November [id number]. She remains asymptomatic from a cardiovascular standpoint of view. She remains hemodynamically stable. She is on maximize medical treatment for the cardiomyopathy as well as cardiomyopathy. The patient would like to be discharged home. From the cardiovascular standpoint she can be discharged home and she needs to have a PCI of the RCA as an outpatient. Objective - Vital Signs Vital signs: Vital Signs Temp 97.8 F 11/02/19 04:00 Pulse 82 11/02/19 04:00 Resp 20 11/02/19 04:00 BP 113/66 11/02/19 04:00 Pulse Ox 93 L 11/02/19 04:00 Intake & Output 11/01/19 11/02/19 11/02/19 18:59 06:59 18:59 Intake Total 300 940 Output Total 800 Balance 300 140 Weight 103.1 kg Intake: Oral 300 940 Output: Urine 800 Other: Voiding Method Bedside Commode Toilet # Voids 1 1 - Constitutional General appearance: Present: no acute distress - Respiratory Respiratory: bilateral: CTA - Cardiovascular Rhythm: regular Heart sounds: normal: S1, S2 - Labs CBC & Chem 7: 11/02/19 04:15 11/02/19 04:15 Labs: Abnormal Lab Results - Last 24 Hours (Table) 11/01/19 11/01/19 11/01/19 Range/Units 11:37 17:16 20:27 Sodium (137-145) mmol/L BUN (7-17) mg/dL Glucose (74-99) mg/dL POC Glucose (mg/dL) 258 H 278 H 258 H (75-99) mg/dL 11/02/19 11/02/19 Range/Units 04:15 06:57 Sodium 135 L (137-145) mmol/L BUN 30 H (7-17) mg/dL Glucose 249 H (74-99) mg/dL POC Glucose (mg/dL) 266 H (75-99) mg/dL Assessment and Plan Assessment: Assessment #[address] elevation myocardial infarction #2 status post a stenting of the LAD #3 diabetes type 2 #4 hypertension #5 dyslipidemia Plan #1 continue dual antiplatelet therapy along with high intensity statin #2 the patient can be discharged home
[2019-11-02 09:03] VITALS: PULSE 89; RESP 32; TEMP 98.1
[2019-11-02] MEDS: ASPIRIN 81 MG PO SCH (09:03)
[2019-11-02] MEDS: FUROSEMIDE 40 MG TAB PO SCH (09:04)
[2019-11-02] MEDS: lisinopriL 10 MG TAB PO SCH (09:04)
[2019-11-02] MEDS: SPIRONOLACTONE 25 MG TAB PO SCH (09:04)
[2019-11-02] MEDS: HEPARIN SODIUM,PORCINE 5,000 UNIT/ML 1 ML VIAL SQ SCH (09:04)
[2019-11-02] MEDS: METOPROLOL TARTRATE 25 MG TAB PO SCH (09:04)
[2019-11-02] MEDS: TICAGRELOR 90 MG TAB PO SCH (09:04)
--- NOTE | 2019-11-02 10:09 | P.DS ---
Providers Date of admission: 10/30/19 12:16 Expected date of discharge: 11/02/19 Attending physician: Ronny Luna Consults: 10/30/19 12:07 Consult Physician Stat Consulting Provider: Linn Schulz Consult Reason/Comments: STEMI ACTIVATION COMPLETE Do you want consulting provider notified?: Yes 10/30/19 13:21 Consult Physician Routine Consulting Provider: Cardiology Zeus Consult Reason/Comments: Post Interventional patient Do you want consulting provider notified?: Already Contacted Primary care physician: Stated None Hospital Course: 69-year-old female with PMH of diabetes mellitus, hypertension, history of TIA presents the ED for chest pain. Patient reports chest pain that started yesterday. Pain is left-sided, radiating to the back, left elbow and arm.. When her symptoms persisted today this prompted her to come to the ED. In the ED, she underwent extensive evaluation. Her blood pressure was elevated at 160/86. She was tachycardic to 110. CBC shows leukocytosis of 11.8. CMP showed sodium 134, creatinine 0.36, glucose 293. Calcium was 10.8. Total bilirubin 2.7, AST of 140, ALT of 46. Troponin was 20.2, EKG showing sinus tach ycardia with ST elevation. Chest x-ray showed findings of CHF. Cardiology was contacted from the ED and she was taken for urgent cardiac cath. She underwent placement of stents in the distal, mid and proximal LAD along with thrombectomy. She was transferred to ICU after her cath. Patient was seen and examined in the ICU. Patient reports no more chest pain. She denies any headache, lower extremity edema, nausea or vomiting, fever chills, cough, chest pain, shortness of breath, palpitations, changes in urination or bowel habits. No changes in appetite or weight. She denies any dizziness, numbness/weakness/tingling of the extremities. Patient was started on aspirin, Lipitor, Brilinta and continued on metoprolol. Echocardiogram was obtained which showed EF 30-35% with moderate concentric LVH and hypokinetic wall motion. Lisinopril and Aldactone along with Lasix was added. Patient had no chest pain since her procedure. She was cleared by cardiology for discharge. She is to follow-up with cardiology in the outpatient setting to arrange for right heart cath. General: [non toxic], [no distress], [appears at stated age] Derm: [warm], [dry] Head: [atraumatic], [normocephalic], [symmetric] Eyes: [EOMI], [no lid lag], [anicteric sclera] Mouth: [no lip lesion], [mucus membranes moist] Cardiovascular: [S1S2 reg], [no murmur], [positive posterior tibial pulse bilateral], Lungs: [CTA bilateral], [no rhonchi, no rales] , [no accessory muscle use] Abdominal: [soft], [ nontender to palpation], [no guarding], [no appreciable organomegaly] Ext: [no gross muscle atrophy], [no edema], [no contractures] Neuro: [no focal neuro deficits] Psych: [Alert], [oriented], [appropriate affect] ST elevation [place] Hyponatremia Systolic CHF Diabetes mellitus with hyperglycemia Transaminitis Hypertension History of CVA Patient had stent placement in her distal, mid and proximal LAD along with thrombectomy. Plans: Discussed with nursing, plans for repeat cath at a later date. Continue aspirin, Lipitor and Brilinta. Continue metoprolol. Telemetry monitoring. Follow cardiology recommendations. Improving. Plans: Start Lasix by mouth. Echocardiogram shows EF 30-35% with moderate concentric LVH along with hypokinetic wall motion. Plans: Continue beta enrique. Continue MARIO inhibitor. Started on Aldactone and Lasix. [id number] glucose 266. Plans: Continue home insulin regimen. Elevated total bilirubin, AST and ALT. Plans: Follow gallbladder ultrasound. Plans: Continue metoprolol and lisinopril. Monitor vitals and adjust medications as necessary. [Discussed with Dr. Cuba. Cleared for discharge. Advised of warning symptoms of when to come back. Advised to take all medications. Follow-up cardiology within 1 week. This complex discharge took about 45 minutes to complete.] Pertinent Studies: echocardiogram, chest x-ray Procedures: Cardiac cath and stent placement Patient Condition at Discharge: Stable Plan - Discharge Summary Discharge Rx Participant: No New Discharge Prescriptions: New Spironolactone [Aldactone] 25 mg PO DAILY #30 tab Aspirin 81 mg PO DAILY #30 chew Ticagrelor [Brilinta] 90 mg PO BID #60 tab Furosemide [Lasix] 40 mg PO DAILY #30 tab Atorvastatin [Lipitor] 80 mg PO HS #30 tab Metoprolol Tartrate [Lopressor] 25 mg PO TID #90 tab Nitroglycerin Sl Tabs [Nitrostat] 0.4 mg SUBLINGUAL Q5M PRN #14 tab PRN Reason: Chest Pain lisinopriL [Zestril] 10 mg PO DAILY #30 tab Continue Cinnamon Bark [Cinnamon] 1 tab PO DAILY Repaglinide [Prandin] 1 mg PO AC-TID Pioglitazone [Actos] 15 mg PO DAILY Insulin Glargine,Hum.rec.anlog [Lantus Solostar] 40 unit SQ DAILY Discontinued Metoprolol Succinate (ER) [Toprol Xl] 100 mg PO DAILY Losartan/Hydrochlorothiazide [Losartan-Hctz 100-25 mg Tab] 1 tab PO DAILY Atorvastatin [Lipitor] 10 mg PO DAILY Discharge Medication List Cinnamon Bark [Cinnamon] 1 tab PO DAILY 12/24/18 [History] Insulin Glargine,Hum.rec.anlog [Lantus Solostar] 40 unit SQ DAILY 10/30/19 [History] Pioglitazone [Actos] 15 mg PO DAILY 10/30/19 [History] Repaglinide [Prandin] 1 mg PO AC-TID 10/30/19 [History] Aspirin 81 mg PO DAILY #30 chew 11/02/19 [Rx] Atorvastatin [Lipitor] 80 mg PO HS #30 tab 11/02/19 [Rx] Furosemide [Lasix] 40 mg PO DAILY #30 tab 11/02/19 [Rx] Metoprolol Tartrate [Lopressor] 25 mg PO TID #90 tab 11/02/19 [Rx] Nitroglycerin Sl Tabs [Nitrostat] 0.4 mg SUBLINGUAL Q5M PRN #14 tab 11/02/19 [Rx] Spironolactone [Aldactone] 25 mg PO DAILY #30 tab 11/02/19 [Rx] Ticagrelor [Brilinta] 90 mg PO BID #60 tab 11/02/19 [Rx] lisinopriL [Zestril] 10 mg PO DAILY #30 tab 11/02/19 [Rx] Follow up Appointment(s)/Referral(s): None,Stated [Primary Care Provider] - 1-2 days Asad Cuba MD [STAFF PHYSICIAN] - 1 Week Activity/Diet/Wound Care/Special Instructions: Diet: Diabetic, cardiac Follow-up PCP within 3 days of discharge. Follow-up with cardiology for d ischarge. Take all prescribed medications as advised. Come back to the ED or call 911 for worsening chest pain, shortness of breath, palpitations or dizziness. Discharge Disposition: HOME SELF-CARE
== END 2019-11-02 11:30 | disposition home or self-care (01) | DRG 247 ==
LOC: EC 11:46 → 2SICU 12:16
PROVIDERS: ADMIT Internal Medicine; ATTEND Internal Medicine
PROC: 4A023N7 Measurement of Cardiac Sampling and Pressure, Left Heart, Percutaneous Approach (ICD-10-PCS; principal; 2019-10-30 16:40)
PROC: 02C03ZZ Extirpation of Matter from Coronary Artery, One Artery, Percutaneous Approach (ICD-10-PCS; principal; 2019-10-30 16:40)
PROC: B2111ZZ Fluoroscopy of Multiple Coronary Arteries using Low Osmolar Contrast (ICD-10-PCS; principal; 2019-10-30 16:40)
PROC: 027036Z Dilation of Coronary Artery, One Artery with Three Drug-eluting Intraluminal Devices, Percutaneous Approach (ICD-10-PCS; principal; 2019-10-30 16:40)
DX: I21.09 ST elevation (STEMI) myocardial infarction involving other coronary artery of anterior wall (principal); E87.1 Hypo-osmolality and hyponatremia; I42.9 Cardiomyopathy, unspecified; I50.22 Chronic systolic (congestive) heart failure; I25.119 Atherosclerotic heart disease of native coronary artery with unspecified angina pectoris; E11.65 Type 2 diabetes mellitus with hyperglycemia; I11.0 Hypertensive heart disease with heart failure; D72.829 Elevated white blood cell count, unspecified; Z79.4 Long term (current) use of insulin; R74.0 Nonspecific elevation of levels of transaminase and lactic acid dehydrogenase [LDH]; M19.90 Unspecified osteoarthritis, unspecified site; K21.9 Gastro-esophageal reflux disease without esophagitis; E11.40 Type 2 diabetes mellitus with diabetic neuropathy, unspecified; E87.6 Hypokalemia; E78.5 Hyperlipidemia, unspecified; M47.816 Spondylosis without myelopathy or radiculopathy, lumbar region; Z98.42 Cataract extraction status, left eye; Z98.41 Cataract extraction status, right eye; Z96.1 Presence of intraocular lens; Z96.651 Presence of right artificial knee joint; Z90.49 Acquired absence of other specified parts of digestive tract; Z90.710 Acquired absence of both cervix and uterus; Z79.899 Other long term (current) drug therapy; Z79.84 Long term (current) use of oral hypoglycemic drugs; Z86.19 Personal history of other infectious and parasitic diseases; Z86.73 Personal history of transient ischemic attack (TIA), and cerebral infarction without residual deficits; Z87.442 Personal history of urinary calculi; Z82.49 Family history of ischemic heart disease and other diseases of the circulatory system; Z98.891 History of uterine scar from previous surgery; Z95.5 Presence of coronary angioplasty implant and graft
CPT/HCPCS: 36415; 71045; 80048; 80053; 84484; 85025; 85027; 85347; 85610; 85730; 93005; 93306; 93458; 96374; 99285

== ENCOUNTER 2019-11-09 12:51 | Inpatient (IN) | payer MEDICARE ==
[2019-11-09] MEDS ORDERED: SODIUM CHLORIDE 0.9% 500 ML 500 ML IV STA (13:11)
[2019-11-09] MEDS ORDERED: HEPARIN SODIUM,PORCINE 5,000 UNIT/ML 1 ML VIAL IV STA (13:11)
[2019-11-09] MEDS ORDERED: NITROGLYCERIN OINT 1 INCH/GM PACKET TOPICAL STA (13:11)
--- NOTE | 2019-11-09 13:15 | ED ---
General Adult HPI - General Chief complaint: Chest Pain Stated complaint: Chest Pain Time Seen by Provider: 11/09/19 12:51 Source: patient, EMS, RN notes reviewed, old records reviewed Mode of arrival: EMS Limitations: no limitations - History of Present Illness Initial comments: This a 69-year-old female presents emergency Department with a recent past medical history for 3 stent placements 10 days ago. Patient states about an hour prior to arrival she started having chest pain in the center chest that radiated to both shoulders per patient states she also experienced significant shortness of breath. Patient denied any diaphoretic episodes. Patient denies any nausea or vomiting. Patient states she took a nitroglycerin and then get 2 more nitroglycerin in the emesis on the way here. Patient also had 4 aspirin prior to arrival. Patient states symmetrical cyst taken the pain away completely at this point in time. Patient denies any recent fever chills or cough. Patient states his pain is considerably different than the chest pain she is experiencing the past. Patient denies any abdominal pain patient denies any headache patient denies numbness weakness. - Related Data Home Medications Medication Instructions Recorded Confirmed Cinnamon Bark [Cinnamon] 1 tab PO DAILY 12/24/18 10/30/19 Insulin Glargine,Hum.rec.anlog 40 unit SQ DAILY 10/30/19 10/30/19 [Lantus Solostar] Pioglitazone [Actos] 15 mg PO DAILY 10/30/19 10/30/19 Repaglinide [Prandin] 1 mg PO AC-TID 10/30/19 10/30/19 Previous Rx's Medication Instructions Recorded Aspirin 81 mg PO DAILY #30 chew 11/02/19 Atorvastatin [Lipitor] 80 mg PO HS #30 tab 11/02/19 Furosemide [Lasix] 40 mg PO DAILY #30 tab 11/02/19 Metoprolol Tartrate [Lopressor] 25 mg PO TID #90 tab 11/02/19 Nitroglycerin Sl Tabs [Nitrostat] 0.4 mg SUBLINGUAL Q5M PRN #14 tab 11/02/19 Spironolactone [Aldactone] 25 mg PO DAILY #30 tab 11/02/19 Ticagrelor [Brilinta] 90 mg PO BID #60 tab 11/02/19 lisinopriL [Zestril] 10 mg PO DAILY #30 tab 11/02/19 Allergies Allergy/AdvReac Type Severity Reaction Status Date / Time No Known Allergies Allergy Verified 11/09/19 13:05 Review of Systems ROS Statement: Those systems with pertinent positive or pertinent negative responses have been documented in the HPI. ROS Other: All systems not noted in ROS Statement are negative. Past Medical History Past Medical History: Coronary Artery Disease (CAD), CVA/TIA, Diabetes Mellitus, GERD/Reflux, Hypertension, Osteoarthritis (OA), Renal Disease Additional Past Medical History / Comment(s): TIA approximately 8 years ago, 1998 pericarditis, IDDM type II, neuropathy bilateral feet, exertional asthma years ago, bronchitis, L lung scarring from TB, arhtritis in lower back with occasional pain, hiatal hernia, past esophageal strictures/dilations. History of Any Multi-Drug Resistant Organisms: None Reported Past Surgical History: Section, Cholecystectomy, Heart Catheterization With Stent, Hysterectomy, Joint Replacement, Orthopedic Surgery Additional Past Surgical History / Comment(s): 10/30/19 PCI with stents LAD/aspiration thrombectomy, bilateral knee arthroscopies, L shoulder rotator cuff repair, R shoulder frozen shoulder/manipulation and fractured, exploratory laparoscopy with endometrial scraping, R percutaneous nephrostolithotomy twice for stones, colonoscopies/benign polypectomies, esophageal dilations, L eye cataract removal/lens implant. 3 stents placed 10-30-2019 Past Anesthesia/Blood Transfusion Reactions: No Reported Reaction Additional Past Anesthesia/Blood Transfusion Reaction / Comment(s): Pt has received blood in past after hysterectomy without reaction Past Psychological History: No Psychological Hx Reported Smoking Status: Never smoker Past Alcohol Use History: None Reported Past Drug Use History: None Reported - Past Family History Mother History Unknown: Yes Family Medical History: No Reported History Additional Family Medical History / Comment(s): Mother at the age of 38 yrs but pt states she never knew cause. Father Family Medical History: Myocardial Infarction (MN) Additional Family Medical History / Comment(s): Father had his first MN at the age of 65 yrs, then of a MN at the age of 83 yrs. General Exam - General Exam Comments Initial Comments: GENERAL: Patient is well-developed and well-nourished. Patient is nontoxic and well- hydrated and is in mild distress. ENT: Neck is soft and supple. No significant lymphadenopathy is noted. Oropharynx is clear. Moist mucous membranes. Neck has full range of motion without el iciting any pain. EYES: The sclera were anicteric and conjunctiva were pink and moist. Extraocular movements were intact and pupils were equal round and reactive to light. Eyelids were unremarkable. PULMONARY: Unlabored respirations. Good breath sounds bilaterally. No audible rales rhonchi or wheezing was noted. CARDIOVASCULAR: There is a regular rate and rhythm without any murmurs gallops or rubs. ABDOMEN: Soft and nontender with normal bowel sounds. SKIN: Skin is clear with no lesions or rashes and otherwise unremarkable. NEUROLOGIC: Patient is alert and oriented x3. Cranial nerves II through XII are grossly intact. Motor and sensory are also intact. Normal speech, volume and content. Symmetrical smile. MUSCULOSKELETAL: Normal extremities with adequate strength and full range of motion. No lower extremity swelling or edema. No calf tenderness. LYMPHATICS: No significant lymphadenopathy is noted PSYCHIATRIC: Normal psychiatric evaluation. Limitations: no limitations Course Vital Signs 11/09/19 11/09/19 11/09/19 12:54 12:59 13:00 Temperature 98.0 F Pulse Rate 110 H Respiratory 23 Rate Blood Pressure 141/79 127/81 O2 Sat by Pulse 98 97 98 Oximetry 11/09/19 11/09/19 13:30 14:00 Temperature Pulse Rate 96 Respiratory 27 H Rate Blood Pressure 141/79 141/79 O2 Sat by Pulse 99 99 Oximetry Medical Decision Making - Medical Decision Making EKG shows sinus tachycardia at 106 bpm MN interval is 176 QRS is 82 QT interval 352 QTC is 467. Patient's EKG shows no ST segment elevation or depression. Patient has Q waves in all the inferior leads. Chest x-ray shows no acute abnormality. I started the patient on heparin. I spoke with Dr. Naranjo he agreed to admit the patient admitted the patient and wrote admitting orders 16 heparin Nitropaste on the floor. - Lab Data Result diagrams: 11/09/19 13:29 11/09/19 13:29 Lab Results 11/09/19 11/09/19 11/09/19 Range/Units 13:29 13:29 13:29 WBC 8.3 (3.8-10.6) k/uL RBC 4.93 (3.80-5.40) m/uL Hgb 13.8 (11.4-16.0) gm/dL Hct 42.8 (34.0-46.0) % MCV 86.8 (80.0-100.0) fL MCH 28.0 (25.0-35.0) pg MCHC 32.2 (31.0-37.0) g/dL RDW 12.1 (11.5-15.5) % Plt Count 352 (150-450) k/uL Neutrophils % 64 % Lymphocytes % 27 % Monocytes % 5 % Eosinophils % 2 % Basophils % 1 % Neutrophils # 5.3 (1.3-7.7) k/uL Lymphocytes # 2.3 (1.0-4.8) k/uL Monocytes # 0.4 (0-1.0) k/uL Eosinophils # 0.1 (0-0.7) k/uL Basophils # 0.1 (0-0.2) k/uL PT 10.2 (9.0-12.0) sec INR 1.0 (<1.2) APTT 22.8 (22.0-30.0) sec Sodium 137 (137-145) mmol/L Potassium 4.4 (3.5-5.1) mmol/L Chloride 105 (98-107) mmol/L Carbon Dioxide 25 (22-30) mmol/L Anion Gap 7 mmol/L BUN 20 H (7-17) mg/dL Creatinine 0.39 L (0.52-1.04) mg/dL Est GFR (CKD-EPI)AfAm >90 (>60 ml/min/1.73 sqM) Est GFR (CKD-EPI)NonAf >90 (>60 ml/min/1.73 sqM) Glucose 358 H (74-99) mg/dL Calcium 9.5 (8.4-10.2) mg/dL Magnesium 1.4 L (1.6-2.3) mg/dL Total Bilirubin 1.3 (0.2-1.3) mg/dL AST 36 (14-36) U/L ALT 43 H (4-34) U/L Alkaline Phosphatase 126 (38-126) U/L Troponin I (0.000-0.034) ng/mL Total Protein 6.3 (6.3-8.2) g/dL Albumin 3.4 L (3.5-5.0) g/dL 10/04/20 Range/Units 13:29 WBC (3.8-10.6) k/uL RBC (3.80-5.40) m/uL Hgb (11.4-16.0) gm/dL Hct (34.0-46.0) % MCV (80.0-100.0) fL MCH (25.0-35.0) pg MCHC (31.0-37.0) g/dL RDW (11.5-15.5) % Plt Count (150-450) k/uL Neutrophils % % Lymphocytes % % Monocytes % % Eosinophils % % Basophils % % Neutrophils # (1.3-7.7) k/uL Lymphocytes # (1.0-4.8) k/uL Monocytes # (0-1.0) k/uL Eosinophils # (0-0.7) k/uL Basophils # (0-0.2) k/uL PT (9.0-12.0) sec INR (<1.2) APTT (22.0-30.0) sec Sodium (137-145) mmol/L Potassium (3.5-5.1) mmol/L Chloride (98-107) mmol/L Carbon Dioxide (22-30) mmol/L Anion Gap mmol/L BUN (7-17) mg/dL Creatinine (0.52-1.04) mg/dL Est GFR (CKD-EPI)AfAm (>60 ml/min/1.73 sqM) Est GFR (CKD-EPI)NonAf (>60 ml/min/1.73 sqM) Glucose (74-99) mg/dL Calcium (8.4-10.2) mg/dL Magnesium (1.6-2.3) mg/dL Total Bilirubin (0.2-1.3) mg/dL AST (14-36) U/L ALT (4-34) U/L Alkaline Phosphatase (38-126) U/L Troponin I 0.196 H* (0.000-0.034) ng/mL Total Protein (6.3-8.2) g/dL Albumin (3.5-5.0) g/dL Critical Care Time Critical Care Time: Yes Total Critical Care Time: 35 Disposition Clinical Impression: Unstable angina pectoris Disposition: ADMITTED IP TO THIS [facility] Referrals: None,Stated [Primary Care Provider] - 1-2 days Time of Disposition: 14:25
[2019-11-09 13:35] LABS: Basophils # (A) 0.1 k/uL (0-0.2); Basophils % (A) 1 %; Eosinophils # (A) 0.1 k/uL (0-0.7); Eosinophils % (A) 2 %; HCT 42.8 % (34.0-46.0); HGB 13.8 gm/dL (11.4-16.0); Lymphocytes # (A) 2.3 k/uL (1.0-4.8); Lymphocytes % (A) 27 %; MCHC 32.2 g/dL (31.0-37.0); MCV 86.8 fL (80.0-100.0); Mean Platelet Volume 6.8; Monocytes # (A) 0.4 k/uL (0-1.0); Monocytes % (A) 5 %; Neutrophils # (A) 5.3 k/uL (1.3-7.7); Neutrophils % (A) 64 %; Platelet Count 352 k/uL (150-450); RBC 4.93 m/uL (3.80-5.40); RDW 12.1 % (11.5-15.5); WBC 8.3 k/uL (3.8-10.6)
[2019-11-09 13:43] LABS: ALT 43 U/L (4-34); AST 36 U/L (14-36); African American GFR (CKD) >90 (>60 ml/min/1.73 sqM); Albumin 3.4 g/dL (3.5-5.0); Alkaline Phosphatase 126 U/L (38-126); Anion Gap 7 mmol/L; Blood Urea Nitrogen 20 mg/dL (7-17); Calcium 9.5 mg/dL (8.4-10.2); Carbon Dioxide 25 mmol/L (22-30); Chloride 105 mmol/L (98-107); Glucose 358 mg/dL (74-99); Magnesium 1.4 mg/dL (1.6-2.3); Non-African American GFR(CKD) >90 (>60 ml/min/1.73 sqM); Partial Thromboplastin Time 22.8 sec (22.0-30.0); Potassium 4.4 mmol/L (3.5-5.1); Prothrombin Time 10.2 sec (9.0-12.0); Sodium 137 mmol/L (137-145); Total Bilirubin 1.3 mg/dL (0.2-1.3); Total Protein 6.3 g/dL (6.3-8.2)
--- NOTE | 2019-11-09 14:00 | XR ---
EXAMINATION TYPE: XR chest 2V DATE OF EXAM: 11/09/2019 COMPARISON: 10/30/2019 INDICATION: Chest pain TECHNIQUE: Frontal and lateral views of the chest are obtained. FINDINGS: The heart size is mildly prominent. The pulmonary vasculature is prominent. Mild diffuse increased lung markings are present. Early volume overload should be considered. IMPRESSION: 1. Correlate for mild congestive heart failure.
[2019-11-09] MEDS: HEPARIN SOD,PORK IN 0.45% NACL 25,000 UNIT in 0.45% NACL 1 250ML.BAG IV SCH (14:04)
[2019-11-09] MEDS ORDERED: NITROGLYCERIN SL TABS 0.4 MG TAB SUBLINGUAL PRN (14:27)
[2019-11-09] MEDS ORDERED: HYDROcodone/APAP 5-325MG 1 EACH TAB PO PRN (16:55)
[2019-11-09] MEDS ORDERED: HYDROmorphone 0.5 MG/0.5 ML SYRINGE IVP PRN (16:55)
[2019-11-09] MEDS ORDERED: ALPRAZolam 0.25 MG TAB PO PRN (16:55)
[2019-11-09] MEDS ORDERED: TEMAZEPAM 15 MG CAP PO PRN (16:55)
[2019-11-09 17:24] LABS: Glucose,Whole Blood 204 mg/dL (75-99)
[2019-11-09] MEDS: NITROGLYCERIN OINT 1 INCH/GM PACKET TOPICAL SCH ×2 (17:33→23:34)
[2019-11-09] MEDS: INSULIN ASPART (NovoLOG) 100 UNIT/ML VIAL SQ SCH ×2 (17:33→22:04)
[2019-11-09] MEDS: REPAGLINIDE 1 MG TAB PO SCH (17:42)
[2019-11-09] MEDS: TICAGRELOR 90 MG TAB PO SCH (17:45)
[2019-11-09] MEDS: METOPROLOL TARTRATE 25 MG TAB PO SCH (17:45)
[2019-11-09 21:08] LABS: Glucose,Whole Blood 153 mg/dL (75-99)
[2019-11-09] MEDS: ATORVASTATIN 80 MG TAB PO SCH (22:04)
--- NOTE | 2019-11-09 23:06 | HP ---
HISTORY AND PHYSICAL CHIEF COMPLAINT: Chest pain. HISTORY OF PRESENT ILLNESS: This 69-year-old woman with a past medical history of multiple medical problems including history of CAD, CVA, diabetes mellitus, hypertension, DJD, was recently admitted with acute ST-segment elevation myocardial infarction. Dr. Cuba saw the patient and underwent stent placement distal mid and proximal LAD with thrombectomy. Dr. Cuba is planning further intervention later according to the patient. 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 There is no history of any vomiting, nausea. The troponin is only 0.19 which is reduction from 20, which was noted recently. Magnesium was 1.4. The EKG which I reviewed personally showed non- progression R-waves and as well as some sinus tachycardia. Patient admitted for further evaluation and treatment. There is no history of fever or rigors. There is no history of headache, loss of consciousness or seizures. PAST MEDICAL HISTORY: History of CAD, stent, CVA, TIA, diabetes mellitus type 2, GERD, hypertension, DJD, history of TIA. MEDICATIONS: Medications prior to admission, home medications are: 1. Zestril. 2. Brilinta. 3. Aldactone. 4. Prandin. 5. Actos. 6. Nitrostat. 7. Lopressor. 8. Lantus. 9. Lasix. 10.Cinnamon. 11.Lipitor. 12.Aspirin. Doses are reviewed. ALLERGIES: None. FAMILY HISTORY: History of the mother at the age of 38, the cause of this unknown. SOCIAL HISTORY: No history of smoking. No history of alcohol intake. REVIEW OF SYSTEMS: ENT: Diminished hearing and diminished vision. CARDIOVASCULAR SYSTEM: As mentioned earlier. RESPIRATORY SYSTEM: As mentioned earlier. GI: No nausea. : No dysuria. NERVOUS SYSTEM: No numbness or weakness. ALLERGY/IMMUNOLOGY: No asthma or hayfever. MUSCULOSKELETAL: As mentioned earlier. HEMATOLOGY/ONCOLOGY: No history of anemia. ENDOCRINE: Diabetes mellitus. CONSTITUTIONAL: As mentioned earlier. DERMATOLOGY: Negative. RHEUMATOLOGY: Negative. PSYCHIATRY: As mentioned earlier. PHYSICAL EXAMINATION: The patient is alert and oriented x3. Pulse 89, blood pressure 129/84, respiration 20, temperature 98.2, pulse ox 98% on room air. HEENT: Conjunctivae normal. Oral mucosa moist. NECK; No jugular venous distention. No carotid bruit. No lymph node enlargement. CARDIOVASCULAR: S1, S2 muffled. No S3, no S4. RESPIRATORY: Breath sounds diminished at the bases. No rhonchi. No crackles. ABDOMEN: Soft, nontender. No mass palpable. LEGS: No edema, no swelling. NERVOUS SYSTEM: Higher functions as mentioned earlier. Moves all 4 limbs. No focal motor or sensory deficits. LYMPHATICS: No lymphadenopathy of the neck, axillae or groin. SKIN: No ulcer, rash or bleeding. JOINTS: No active deforming arthropathy. LABS: Labs are at this time show CBC within normal limits. Sodium 137, potassium 4.4. Glucose 358. Troponin 0.196. ASSESSMENT: 1. Chest pain possible unstable angina, rule out acute mrb-[id number]-elevation myocardial infarction. 2. History of recent acute ST-segment elevation myocardial infarction, status post LAD stents, mid and distal. 3. Increased random blood sugar; diabetes mellitus type 2, uncontrolled. 4. Hypomagnesemia. 5. Increased ALT. 6. History of cerebrovascular accident, transient ischemic attack. 7. Diabetes mellitus type 2. 8. Gastroesophageal reflux disease. 9. Hypertension. 10.History of degenerative joint disease. 11.History of transient ischemic attack. 12.History of asthma. 13.History of cholecystectomy. 14.Obesity with body mass index of 36.6. RECOMMENDATIONS AND DISCUSSION: This 69-year-old woman presented with multiple complex medical issues, we will monitor the patient closely. Continue the current medications. Continue symptomatic treatment. Rule out myocardial infarction. Cardiology consultation. 2D echo with Doppler. Obtain old records. Otherwise, symptomatic treatment will be provided and we will monitor the blood sugars closely. The patient is taking Prandin at this time and as well as Lantus. We will adjust the dose accordingly. Prognosis guarded because of multiple complex medical issues. Further recommendations to follow. MMODL / IJN: [id number] /
[2019-11-10 06:38] LABS: Glucose,Whole Blood 135 mg/dL (75-99)
[2019-11-10] MEDS: NITROGLYCERIN OINT 1 INCH/GM PACKET TOPICAL SCH ×2 (06:56→18:53)
[2019-11-10] MEDS: PANTOPRAZOLE 40 MG TABLET PO SCH (06:58)
[2019-11-10] MEDS: REPAGLINIDE 1 MG TAB PO SCH ×3 (06:58→16:47)
[2019-11-10] MEDS: INSULIN ASPART (NovoLOG) 100 UNIT/ML VIAL SQ SCH ×4 (07:05→21:02)
[2019-11-10 08:06] LABS: Basophils % (A) 0 %; Eosinophils # (A) 0.1 k/uL (0-0.7); Eosinophils % (A) 2 %; HCT 40.7 % (34.0-46.0); HGB 13.4 gm/dL (11.4-16.0); Lymphocytes # (A) 2.9 k/uL (1.0-4.8); Lymphocytes % (A) 31 %; MCH 28.7 pg (25.0-35.0); MCHC 32.9 g/dL (31.0-37.0); Mean Platelet Volume 6.7; Monocytes # (A) 0.4 k/uL (0-1.0); Monocytes % (A) 4 %; Neutrophils # (A) 5.6 k/uL (1.3-7.7); Neutrophils % (A) 61 %; Platelet Count 333 k/uL (150-450); RBC 4.67 m/uL (3.80-5.40); RDW 12.6 % (11.5-15.5); WBC 9.2 k/uL (3.8-10.6)
[2019-11-10 08:22] LABS: African American GFR (CKD) >90 (>60 ml/min/1.73 sqM); Anion Gap 4 mmol/L; Blood Urea Nitrogen 17 mg/dL (7-17); Calcium 9.6 mg/dL (8.4-10.2); Carbon Dioxide 26 mmol/L (22-30); Chloride 109 mmol/L (98-107); Cholesterol 110 mg/dL (<200); Glucose 143 mg/dL (74-99); HDL Cholesterol 33 mg/dL (40-60); LDL Cholesterol,Calculated 39 mg/dL (0-99); Non-African American GFR(CKD) >90 (>60 ml/min/1.73 sqM); Potassium 3.9 mmol/L (3.5-5.1); Sodium 139 mmol/L (137-145); Triglycerides 192 mg/dL (<150)
[2019-11-10] MEDS: SPIRONOLACTONE 25 MG TAB PO SCH (08:42)
[2019-11-10] MEDS: PIOGLITAZONE 15 MG TAB PO SCH (08:42)
[2019-11-10] MEDS: FUROSEMIDE 40 MG TAB PO SCH (08:42)
[2019-11-10] MEDS: METOPROLOL TARTRATE 25 MG TAB PO SCH ×3 (08:43→21:01)
[2019-11-10] MEDS: TICAGRELOR 90 MG TAB PO SCH ×2 (08:43→21:01)
[2019-11-10] MEDS: lisinopriL 10 MG TAB PO SCH (08:44)
[2019-11-10] MEDS ORDERED: ATORVASTATIN 80 MG TAB PO STA (08:46)
[2019-11-10] MEDS ORDERED: NITROGLYCERIN SL TABS 0.4 MG TAB SUBLINGUAL PRN ×2 (08:46→11:46)
[2019-11-10] MEDS ORDERED: ASPIRIN 325 MG TAB PO STA (08:46)
[2019-11-10] MEDS ORDERED: ALPRAZolam 0.25 MG TAB PO PRN (08:46)
[2019-11-10] MEDS ORDERED: SODIUM CHLORIDE 0.9% 1,000 ML in EMPTY BAG 1 BAG IV ONE (08:46)
[2019-11-10] MEDS ORDERED: ALPRAZolam 0.5 MG TAB PO PRN (08:46)
[2019-11-10] MEDS ORDERED: ASPIRIN 325 MG TAB PO SCH (09:00)
[2019-11-10] MEDS ORDERED: IV FLUID CONTINUATION 600 ML IV ONE (10:13)
[2019-11-10] MEDS ORDERED: MIDAZOLAM 2 MG/2 ML VIAL IV ONE (10:42)
[2019-11-10] MEDS ORDERED: LIDOCAINE 1% INJ 10MG/ML (20 ML MDV) SQ ONE (10:42)
[2019-11-10] MEDS ORDERED: BIVALIRUDIN BOLUS 250 MG/50 ML IV ONE (10:53)
[2019-11-10] MEDS ORDERED: BIVALIRUDIN 250 MG in SODIUM CHLORIDE 0.9% 50 ML IV ONE (10:54)
[2019-11-10] MEDS: NITROGLYCERIN 1000MCG/10ML SYRINGE INTRACORON ONE ×2 (11:07→11:14)
[2019-11-10] MEDS ORDERED: ADENOSINE 90 MG in SODIUM CHLORIDE 0.9% 60 ML IVP ONE (11:39)
[2019-11-10] MEDS ORDERED: IOPAMIDOL-370 125ML BTL INJ ONE (11:45)
[2019-11-10] MEDS ORDERED: IOPAMIDOL-370 100ML BTL INJ ONE (11:45)
[2019-11-10] MEDS ORDERED: ATROPINE SULFATE 0.1 MG/ML 10ML SYRINGE IV PRN (11:46)
[2019-11-10] MEDS ORDERED: MAG HYDROX/AL HYDROX/SIMETH 30 ML CUP PO PRN (11:46)
[2019-11-10] MEDS ORDERED: ZOLPIDEM 5 MG TAB PO PRN (11:46)
[2019-11-10] MEDS ORDERED: RX INFO: IV CONTRAST WAS GIVEN 1 EACH MISC MISCELLANE PRN (11:46)
[2019-11-10] MEDS ORDERED: SODIUM CHLORIDE 0.9% 1,000 ML IV SCH (12:00)
[2019-11-10 12:16] LABS: Glucose,Whole Blood 167 mg/dL (75-99)
[2019-11-10] MEDS: ASPIRIN 81 MG PO SCH (12:36)
[2019-11-10] MEDS: INSULIN DETEMIR (LEVEMIR) 100 UNIT/ML SYR SQ SCH (12:41)
--- NOTE | 2019-11-10 12:47 | CC ---
CARDIAC CATHETERIZATION REPORT DATE OF SERVICE: November 10, 2019. PERFORMING PHYSICIAN: Asad Cuba MD. PROCEDURE PERFORMED: 1. Selective right and left coronary angiogram. 2. Left heart catheterization. 3. Successful stenting of the mid right coronary artery using 3.0 x 28 mm Xience KEVIN which was post-dilated using 3.5 mm NC balloon with excellent angiographic results and reduction of stenosis from 90% to 0%. 4. Fractional flow reserve FFR of the left circumflex coronary artery. INDICATION: This is a very pleasant 69-year-old female patient who presented to the hospital a few weeks ago with chest discomfort and was diagnosed with acute anterior ST-elevation myocardial infarction. She underwent an emergent heart catheterization was found to have occluded LAD in the midportion which was stented. Also, she was found to have intermediate to severe disease involving the left circumflex and critical disease involving the RCA. She presented back to the hospital complaining of chest discomfort and mildly abnormal cardiac enzymes. APPROACH: Right common femoral artery. COMPLICATION: None. LEVEL OF SEDATION: Moderate with sedation length of 62 minutes. PROCEDURE DESCRIPTION: After obtaining informed consent, the patient was brought to the cardiac manager cath lab. The right common femoral artery was cannulated using micropuncture technique, the micropuncture wire passed easily. After that, I did place an 11 cm 6-Divehi sheath in the right common femoral artery. Selective right and left coronary angiogram performed using JR4 and JL3.5 catheters. After that I did intervene on the RCA as well as I did FFR of the left circumflex. Please see a separate paragraph for that. Left heart catheterization was performed using the JR4 catheter which crossed the aortic valve then I did pullback across the valve. SELECTIVE CORONARY ANGIOGRAM: 1. The right coronary artery is a large caliber vessel and it is a dominant vessel. The RCA has critical disease in the midportion appeared to be in the range of 90% to 95%. The RCA distally is diffusely diseased. 2. The left main is angiographically normal. Bifurcates into left circumflex and left anterior descending artery. 3. The left circumflex is a large caliber vessel. It is a nondominant vessel. The left circumflex has intermediate to severe lesion in the midportion appeared to be in the range of 60% to 70%. The left circumflex before that gives rise into an OM branch which is a large caliber vessel with diffuse disease up to about 70%. 4. The LAD: The LAD in the proximal portion is stented and the stent is patent. 5. The LAD in the midportion is stented and the stent is patent as well. The LAD distally appeared to be angiographically normal. HEMODYNAMICS: The LVEDP was 18-20 mmHg without significant gradient across aortic valve. PCI OF THE RCA: Anticoagulation was initiated using Angiomax. Subsequently I did engage the RCA using JR4 guide. It was wired using a whisper wire. After that, I did PTCA ballooning using 2.5 x 12 mm balloon before I deployed a 3.0 x 28 mm Xience KEVIN where the stent was positioned under fluoroscopy guidance and deployed under fluoroscopic guidance. After that, I did postdilatation of the stent using 3.5 mm balloon which was inflated under 18 atmospheres for 20 seconds. The following angiogram showed excellent angiographic results and the procedure was completed at that point. FFR of the left circumflex: After zeroing the Doppler wire and equalizing between the Doppler wire and the guiding catheter, we did an FFR per IV adenosine infusion. The FFR came in to be at 0.90. CONCLUSION: 1. Patent stents in the proximal and mid left anterior descending artery. 2. Intermediate to severe disease involving the left circumflex. FFR was applied and came in to be nonischemic. 3. Critical disease involving the mid right coronary artery. I performed successful stenting of the mid RCA. 4. Mildly elevated LVEDP. POSTPROCEDURE MANAGEMENT: 1. Medical treatment. 2. Continue dual anti-platelet therapy. 3. Risk factor modifications. 4. Aggressive cholesterol control. 5. Follow up with the patient. MMODL / IJN: [id number] /
--- NOTE | 2019-11-10 13:44 | P.CRDCN ---
History of Present Illness Consult date: 11/10/19 History of present illness: CHIEF COMPLAINT: Chest pain HISTORY OF PRESENT ILLNESS: This is a 69-year old female with a past medical history significant for coronary artery disease, diabetes mellitus, hypertension, and kidney disease. Patient follows in the office with Dr. Cuba. We have been asked to see the patient in consultation for chest pain. Patient examined this morning at the bedside. Patient states she was doing under yesterday when she began having some sternal chest pain. She states the pain radiated into her back, trunk, and down both of her arms. She took a sublingual nitro with little improvement and then called EMS. Patient was recently hospitalized secondary to STEMI and underwent stenting 3 to the LAD. At that time patient was also found to have 80-90% lesion of the distal and mid RCA. DIAGNOSTICS: EKG reveals sinus tachycardia. Chest xray correlate for mild congestive heart failure. Laboratory data: WBC 9.2. Hemoglobin 13.4. Platelet count 333. Sodium 139. Potassium 3.9. BUN 17. Creatinine 0.44. Troponin 0.196. 0.216. 0.239. Current home cardiac medications include lisinopril 10 mg daily, [place] 90 mg twice a day, Aldactone 25 mg daily, metoprolol 25 mg 3 times a day, Lasix 40 mg daily, Lipitor 80 mg daily, aspirin 81 mg daily. REVIEW OF SYSTEMS: At the time of my exam: CONSTITUTIONAL: Denies fever or chills. HEENT: Denies blurred vision, vision changes, or eye pain. Denies hemoptysis CARDIOVASCULAR: Denies chest pain, orthopnea, PND or palpitations RESPIRATORY: No shortness of breath. GASTROINTESTINAL: Denies abdominal pain. Denies nausea or vomiting. HEMATOLOGIC: Denies bleeding disorders. GENITOURINARY: Denies any blood in urine. SKIN: Denies pruitis. Denies rash. PHYSICAL EXAM: VITAL SIGNS: Reviewed. GENERAL: Well-developed in no acute distress. HEENT: Head is normocephalic. Pupils are equal, round. Sclerae anicteric. Mucous membranes of the mouth are moist. Neck supple. No JVD or thyromegaly LUNGS: Respirations even and unlabored. Lungs essentially clear to auscultation bilaterally. HEART: Regular rate and rhythm. S1 and S2 heard. ABDOMEN: Soft. Nondistended. Nontender. EXTREMITIES: Normal range of motion. No clubbing or cyanosis. Peripheral pulses intact. No lower extremity edema NEUROLOGIC: Awake and alert. Oriented x 3. ASSESSMENT: Chest pain Coronary artery disease with previous PCI to LAD x 3 and known disease of RCA Hypertension Diabetes mellitus, type II Obesity: BMI 36.5 PLAN: Case discussed with Dr. Cuba. Patient to undergo cardiac cath today with stent placement to the RCA. Patient agreeable. Further recommendations pending patient course Nurse practitioner note has been reviewed by physician. Signing provider agrees with the documented findings, assessment, and plan of care. 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 History of Any Multi-Drug Resistant Organisms: None Reported Past Surgical History: Section, Cholecystectomy, Heart Catheterization With Stent, Hysterectomy, Joint Replacement, Orthopedic Surgery Additional Past Surgical History / Comment(s): 10/30/19 PCI with stents LAD/aspir ation thrombectomy, bilateral knee arthroscopies, L shoulder rotator cuff repair, R shoulder frozen shoulder/manipulation and fractured, exploratory laparoscopy with endometrial scraping, R percutaneous nephrostolithotomy twice for stones, colonoscopies/benign polypectomies, esophageal dilations, L eye cataract removal/lens implant. 3 stents placed 10-30-2019 Past Anesthesia/Blood Transfusion Reactions: No Reported Reaction Additional Past Anesthesia/Blood Transfusion Reaction / Comment(s): Pt has received blood in past after hysterectomy without reaction Date of Last Stent Placement:: 10/30/2019 Past Psychological History: No Psychological Hx Reported Additional Psychological History / Comment(s): Pt resides with her siva and grandchildren. She is independent. Smoking Status: Never smoker Past Alcohol Use History: None Reported Past Drug Use History: None Reported - Past Family History Mother History Unknown: Yes Family Medical History: No Reported History Additional Family Medical History / Comment(s): Mother at the age of 38 yrs but pt states she never knew cause. Father Family Medical History: Myocardial Infarction ([place]) Additional Family Medical History / Comment(s): Father had his first [place] at the age of 65 yrs, then of a [place] at the age of 83 yrs. Medications and Allergies Home Medications Medication Instructions Recorded Confirmed Type Cinnamon Bark [Cinnamon] 1 tab PO DAILY 12/24/18 11/09/19 History Insulin Glargine,Hum.rec.anlog 40 unit SQ DAILY 10/30/19 11/09/19 History [Lantus Solostar] Pioglitazone [Actos] 15 mg PO DAILY 10/30/19 11/09/19 History Repaglinide [Prandin] 1 mg PO AC-TID 10/30/19 11/09/19 History Aspirin 81 mg PO DAILY #30 chew 11/02/19 11/09/19 Rx Atorvastatin [Lipitor] 80 mg PO HS #30 tab 11/02/19 11/09/19 Rx Furosemide [Lasix] 40 mg PO DAILY #30 tab 11/02/19 11/09/19 Rx Metoprolol Tartrate [Lopressor] 25 mg PO TID #90 tab 11/02/19 11/09/19 Rx Nitroglycerin Sl Tabs [Nitrostat] 0.4 mg SUBLINGUAL Q5M PRN #14 tab 11/02/19 11/09/19 Rx Spironolactone [Aldactone] 25 mg PO DAILY #30 tab 11/02/19 11/09/19 Rx Ticagrelor [Brilinta] 90 mg PO BID #60 tab 11/02/19 11/09/19 Rx lisinopriL [Zestril] 10 mg PO DAILY #30 tab 11/02/19 11/09/19 Rx Allergies Allergy/AdvReac Type Severity Reaction Status Date / Time No Known Allergies Allergy Verified 11/09/19 14:52 Physical Exam Vitals: Vital Signs Temp Pulse Pulse Pulse Resp BP BP 11/10/19 13:01 73 16 140/74 11/10/19 12:30 70 15 147/68 11/10/19 12:16 98.0 F 16 152/72 11/10/19 08:46 97.7 F 15 153/79 11/10/19 08:00 97.7 F 15 153/79 11/10/19 04:00 97.9 F 78 18 126/67 11/10/19 00:00 98.2 F 67 18 144/77 11/09/19 19:50 98.4 F 71 18 124/78 11/09/19 16:26 98.4 F 86 18 142/65 11/09/19 16:00 86 18 11/09/19 15:50 98.2 F 89 20 129/84 11/09/19 15:35 80 18 142/76 11/09/19 14:00 96 27 H 141/79 Pulse Ox 11/10/19 13:01 95 11/10/19 12:30 94 L 11/10/19 12:16 11/10/19 08:46 97 11/10/19 08:00 97 11/10/19 04:00 98 11/10/19 00:00 98 11/09/19 19:50 97 11/09/19 16:26 97 11/09/19 16:00 11/09/19 15:50 98 11/09/19 15:35 97 11/09/19 14:00 99 Intake and Output 11/09/19 11/10/19 11/10/19 22:59 06:59 14:59 Intake Total 240 95.133 173.7 Output Total 1 Balance 239 95.133 173.7 Intake: IV 173.7 Intake, IV Titration 95.133 Amount Heparin Sod,Pork in 0.45% 95.133 NaCl 25,000 unit In 0.45 % NaCl 1 250ml.bag @ 10 UNITS/KG/HR 9.979 mls/hr IV .Q24H [facility] Rx#: [id number] Oral 240 Output: Urine 1 Other: Voiding Method Toilet Toilet Toilet # Voids 1 2 Weight 99.79 kg 99.5 kg Results 11/10/19 07:27 11/10/19 07:27 Cardiac Enzymes 11/09/19 11/09/19 11/09/19 Range/Units 13:29 13:29 16:23 AST 36 (14-36) U/L Troponin I 0.196 H* 0.216 H* (0.000-0.034) ng/mL 11/09/19 Range/Units 20:00 AST (14-36) U/L Troponin I 0.239 H* (0.000-0.034) ng/mL Coagulation 11/09/19 11/09/19 11/10/19 Range/Units 13:29 20:00 07:27 PT 10.2 (9.0-12.0) sec APTT 22.8 33.7 H 41.5 H (22.0-30.0) sec Lipids 11/10/19 Range/Units 07:27 Triglycerides 192 H (<150) mg/dL Cholesterol 110 (<200) mg/dL HDL Cholesterol 33 L (40-60) mg/dL CBC 11/10/19 Range/Units 07:27 WBC 9.2 (3.8-10.6) k/uL RBC 4.67 (3.80-5.40) m/uL Hgb 13.4 (11.4-16.0) gm/dL Hct 40.7 (34.0-46.0) % Plt Count 333 (150-450) k/uL Comprehensive Metabolic Panel 11/09/19 11/10/19 Range/Units 13:29 07:27 Sodium 137 139 (137-145) mmol/L Potassium 4.4 3.9 (3.5-5.1) mmol/L Chloride 105 109 H (98-107) mmol/L Carbon Dioxide 25 26 (22-30) mmol/L BUN 20 H 17 (7-17) mg/dL Creatinine 0.39 L 0.44 L (0.52-1.04) mg/dL Glucose 358 H 143 H (74-99) mg/dL Calcium 9.5 9.6 (8.4-10.2) mg/dL AST 36 (14-36) U/L ALT 43 H (4-34) U/L Alkaline Phosphatase 126 (38-126) U/L Total Protein 6.3 (6.3-8.2) g/dL Albumin 3.4 L (3.5-5.0) g/dL Current Medications Generic Name Dose Route Start Last Admin Trade Name Freq PRN Reason Stop Dose Admin Hydrocodone Bitart/Acetaminophen 1 each 11/09/19 16:55 Hydrocodone/Apap 5-325mg 1 Each Tab PO Q6HR PRN Pain Al Hydroxide/Mg Hydroxide 30 ml 11/10/19 11:46 Mag Hydrox/Al Hydrox/Simeth 30 Ml Cup PO Q4HR PRN Heartburn Alprazolam 0.25 mg 11/10/19 08:46 Alprazolam 0.25 Mg Tab PO Q6HR PRN Mild Anxiety Alprazolam 0.5 mg 11/10/19 08:46 Alprazolam 0.5 Mg Tab PO Q6HR PRN Moderate Anxiety Aspirin 81 mg 11/10/19 09:00 11/10/19 12:36 Aspirin 81 Mg PO Not Given DAILY DORIS Atorvastatin Calcium 80 mg 11/09/19 21:00 11/09/19 22:04 Atorvastatin 80 Mg Tab PO 80 mg HS DORIS Administration Atropine Sulfate 0.5 mg 11/10/19 11:46 Atropine Sulfate 0.1 Mg/Ml 10ml Syringe IV ONCE PRN Symptomatic Bradycardia Furosemide 40 mg 11/10/19 09:00 11/10/19 08:42 Furosemide 40 Mg Tab PO 40 mg DAILY DORIS Administration Hydromorphone HCl 0.5 mg 11/09/19 16:55 Hydromorphone 0.5 Mg/0.5 Ml Syringe IVP Q6HR PRN Severe Pain Sodium Chloride 1,000 mls @ 75 mls/hr 11/10/19 12:00 Saline 0.9% IV 11/10/19 18:01 .[id number] [facility] Insulin Aspart 0 unit 11/09/19 17:30 11/10/19 12:42 Insulin Aspart (Novolog) 100 Unit/Ml Vial SQ 2 unit ACHS [facility] Administration Protocol Insulin Detemir 40 unit 11/10/19 09:00 11/10/19 12:41 Insulin Detemir (Levemir) 100 Unit/Ml Syr SQ 40 unit DAILY DORIS Administration Lisinopril 10 mg 11/10/19 09:00 11/10/19 08:44 Lisinopril 10 Mg Tab PO 10 mg DAILY [facility] Administration Metoprolol Tartrate 25 mg 11/09/19 22:00 11/10/19 08:43 Metoprolol Tartrate 25 Mg Tab PO 25 mg TID DORIS Administration Miscellaneous Information 1 each 11/10/19 11:46 Rx Info: Iv Contrast Was Given 1 Each Misc MISCELLANE 11/12/19 11:46 DAILY PRN Per Protocol Nitroglycerin 0.4 mg 11/10/19 11:46 Nitroglycerin Sl Tabs 0.4 Mg Tab SUBLINGUAL Q5M PRN Chest Pain Pantoprazole Sodium 40 mg 11/10/19 07:30 11/10/19 06:58 Pantoprazole 40 Mg Tablet PO Not Given AC-BRKFST [facility] Pioglitazone HCl 15 mg 11/10/19 09:00 11/10/19 08:42 Pioglitazone 15 Mg Tab PO 15 mg DAILY DORIS Administration Repaglinide 1 mg 11/09/19 17:30 11/10/19 12:40 Repaglinide 1 Mg Tab PO 1 mg AC-TID DORIS Administration Spironolactone 25 mg 11/10/19 09:00 11/10/19 08:42 Spironolactone 25 Mg Tab PO 25 mg DAILY DORIS Administration Temazepam 15 mg 11/09/19 16:55 Temazepam 15 Mg Cap PO HS PRN Insomnia Ticagrelor 90 mg 11/09/19 21:00 11/10/19 08:43 Ticagrelor 90 Mg Tab PO 90 mg BID DORIS Administration Zolpidem Tartrate 5 mg 11/10/19 11:46 Zolpidem 5 Mg Tab PO HS PRN Insomnia Intake and Output 11/09/19 11/10/19 11/10/19 22:59 06:59 14:59 Intake Total 240 95.133 173.7 Output Total 1 Balance 239 95.133 173.7 Intake: IV 173.7 Intake, IV Titration 95.133 Amount Heparin Sod,Pork in 0.45% 95.133 NaCl 25,000 unit In 0.45 % NaCl 1 250ml.bag @ 10 UNITS/KG/HR 9.979 mls/hr IV .Q24H [facility] Rx#: [id number] Oral 240 Output: Urine 1 Other: Voiding Method Toilet Toilet Toilet # Voids 1 2 Weight 99.79 kg 99.5 kg 11/10/19 07:27 11/10/19 07:27
[2019-11-10 14:24] VITALS: BMI 36.5
[2019-11-10] MEDS: HEPARIN SOD,PORK IN 0.45% NACL 25,000 UNIT in 0.45% NACL 1 250ML.BAG IV SCH (16:00)
[2019-11-10 16:04] VITALS: RESP 16
[2019-11-10 17:42] LABS: Glucose,Whole Blood 101 mg/dL (75-99)
[2019-11-10 20:41] LABS: Glucose,Whole Blood 169 mg/dL (75-99)
[2019-11-10] MEDS: ATORVASTATIN 80 MG TAB PO SCH (21:01)
--- NOTE | 2019-11-10 23:10 | PN ---
PROGRESS NOTE DATE OF SERVICE: 11/10/2019 This 69-year-old woman was admitted with chest pain and recent stents. Myocardial infarction has been ruled out. Dr. Cuba performed a cardiac catheterization as well as successful stenting of the RCA. The stents were found to be patent. No chest pain. No palpitations. No fever. PHYSICAL EXAMINATION: Alert and oriented x3. Pulse is 78, blood pressure 151/75, respirations 16, temperature 97.6, pulse ox 99% on room air. HEENT: Conjunctivae normal. NECK: No jugular venous distention. CARDIOVASCULAR SYSTEM: S1, S2 muffled. RESPIRATORY SYSTEM: Breath sounds diminished at the bases. No rhonchi. No crackles. ABDOMEN: Soft, non-tender. LEGS: No edema. No swelling. NERVOUS SYSTEM: No focal deficit. LABS: CBC within normal limits. Sodium 139, potassium 3.9. Other labs are noted. ASSESSMENT: 1. Chest pain, possible unstable angina, status post cardiac catheterization as well as stenting of the right coronary artery. 2. History of recent acute VE-[id number]-panskroji myocardial infarction, status post left anterior descending stenting, mid and distal. 3. Increased random blood sugar; diabetes mellitus, type 2, uncontrolled with hyperglycemia. 4. Hypomagnesemia. 5. Increased ALT. 6. History of cerebrovascular accident, transient ischemic attack. 7. Gastroesophageal reflux disease. 8. Hypertension. 9. History of degenerative joint disease. 10.History of transient ischemic attack. 11.History of asthma. 12.History of cholecystectomy. 13.Obesity with body mass index of 36.6. RECOMMENDATIONS AND DISCUSSION: I recommend to continue current medications, continue with the monitoring, continue with symptomatic treatment. Continue with antiplatelet agents, beta blockers. Closely follow with Cardiology. Prognosis guarded. Possible discharge in the next 24 hours. Further recommendations to follow. MMODL / IJN: [id number] /
[2019-11-11 06:12] LABS: Glucose,Whole Blood 141 mg/dL (75-99)
[2019-11-11] MEDS: PANTOPRAZOLE 40 MG TABLET PO SCH (06:22)
[2019-11-11] MEDS: REPAGLINIDE 1 MG TAB PO SCH ×2 (06:22→12:21)
[2019-11-11] MEDS: INSULIN ASPART (NovoLOG) 100 UNIT/ML VIAL SQ SCH ×2 (06:22→12:21)
[2019-11-11 07:21] LABS: Basophils % (A) 0 %; Eosinophils # (A) 0.1 k/uL (0-0.7); Eosinophils % (A) 2 %; HCT 41.2 % (34.0-46.0); HGB 13.4 gm/dL (11.4-16.0); Lymphocytes # (A) 2.7 k/uL (1.0-4.8); Lymphocytes % (A) 32 %; MCH 28.4 pg (25.0-35.0); MCHC 32.6 g/dL (31.0-37.0); MCV 87.1 fL (80.0-100.0); Mean Platelet Volume 6.6; Monocytes # (A) 0.4 k/uL (0-1.0); Monocytes % (A) 5 %; Neutrophils # (A) 5.2 k/uL (1.3-7.7); Neutrophils % (A) 60 %; Platelet Count 327 k/uL (150-450); RBC 4.72 m/uL (3.80-5.40); RDW 12.6 % (11.5-15.5); WBC 8.6 k/uL (3.8-10.6)
[2019-11-11 07:36] LABS: African American GFR (CKD) >90 (>60 ml/min/1.73 sqM); Anion Gap 4 mmol/L; Blood Urea Nitrogen 14 mg/dL (7-17); Calcium 9.7 mg/dL (8.4-10.2); Carbon Dioxide 28 mmol/L (22-30); Chloride 107 mmol/L (98-107); Glucose 144 mg/dL (74-99); Non-African American GFR(CKD) >90 (>60 ml/min/1.73 sqM); Potassium 3.7 mmol/L (3.5-5.1); Sodium 139 mmol/L (137-145)
[2019-11-11] MEDS: lisinopriL 10 MG TAB PO SCH (09:18)
[2019-11-11] MEDS: ASPIRIN 81 MG PO SCH (09:18)
[2019-11-11] MEDS: FUROSEMIDE 40 MG TAB PO SCH (09:18)
[2019-11-11] MEDS: SPIRONOLACTONE 25 MG TAB PO SCH (09:18)
[2019-11-11] MEDS: METOPROLOL TARTRATE 25 MG TAB PO SCH (09:18)
[2019-11-11] MEDS: TICAGRELOR 90 MG TAB PO SCH (09:18)
[2019-11-11] MEDS: PIOGLITAZONE 15 MG TAB PO SCH (09:22)
[2019-11-11] MEDS: INSULIN DETEMIR (LEVEMIR) 100 UNIT/ML SYR SQ SCH (09:22)
[2019-11-11 09:37] VITALS: TEMP 97.4
[2019-11-11 11:36] LABS: Glucose,Whole Blood 198 mg/dL (75-99)
[2019-11-11 12:17] VITALS: BP 132/70; PULSE 63
--- NOTE | 2019-11-11 13:07 | P.DS ---
Providers Date of admission: 11/09/19 14:28 Attending physician: Michael Naranjo Consults: 11/09/19 14:28 Consult Physician Urgent Consulting Provider: Cardiology Zeus Consult Reason/Comments: Unstable angina Do you want consulting provider notified?: Yes 11/10/19 11:46 Consult Physician Routine Consulting Provider: Linn Schulz Consult Reason/Comments: Post Interventional patient Do you want consulting provider notified?: Already Contacted Primary care physician: Stated None Hospital Course: 69-year-old admitted for chest pain patient underwent cardiac catheterization was diagnosed with unstable angina and patient had successful stenting of RCA and patient is being discharged today PHYSICAL EXAMINATION: GENERAL: The patient is alert and oriented x3, not in any acute distress. Well developed, well nourished. HEENT: Pupils are round and equally reacting to light. EOMI. No scleral icterus. No conjunctival pallor. Normocephalic, atraumatic. No pharyngeal erythema. No thyromegaly. CARDIOVASCULAR: S1 and S2 present. No murmurs, rubs, or gallops. PULMONARY: Chest is clear to auscultation, no wheezing or crackles. ABDOMEN: Soft, nontender, nondistended, normoactive bowel sounds. No palpable organomegaly. MUSCULOSKELETAL: No joint swelling or deformity. EXTREMITIES: No cyanosis, clubbing, or pedal edema. NEUROLOGICAL: Gross neurological examination did not reveal any focal deficits. SKIN: No rashes. Personal medical problems hospice physician course please refer to documentation in progress note from Dr. Gotti from yesterday Plan - Discharge Summary Discharge Rx Participant: No New Discharge Prescriptions: Continue Cinnamon Bark [Cinnamon] 1 tab PO DAILY Repaglinide [Prandin] 1 mg PO AC-TID Pioglitazone [Actos] 15 mg PO DAILY Insulin Glargine,Hum.rec.anlog [Lantus Solostar] 40 unit SQ DAILY Spironolactone [Aldactone] 25 mg PO DAILY #30 tab Aspirin 81 mg PO DAILY #30 chew Ticagrelor [Brilinta] 90 mg PO BID #60 tab Furosemide [Lasix] 40 mg PO DAILY #30 tab Atorvastatin [Lipitor] 80 mg PO HS #30 tab Metoprolol Tartrate [Lopressor] 25 mg PO TID #90 tab Nitroglycerin Sl Tabs [Nitrostat] 0.4 mg SUBLINGUAL Q5M PRN #14 tab PRN Reason: Chest Pain lisinopriL [Zestril] 10 mg PO DAILY #30 tab Discharge Medication List Cinnamon Bark [Cinnamon] 1 tab PO DAILY 12/24/18 [History] Insulin Glargine,Hum.rec.anlog [Lantus Solostar] 40 unit SQ DAILY 10/30/19 [History] Pioglitazone [Actos] 15 mg PO DAILY 10/30/19 [History] Repaglinide [Prandin] 1 mg PO AC-TID 10/30/19 [History] Aspirin 81 mg PO DAILY #30 chew 11/02/19 [Rx] Atorvastatin [Lipitor] 80 mg PO HS #30 tab 11/02/19 [Rx] Furosemide [Lasix] 40 mg PO DAILY #30 tab 11/02/19 [Rx] Metoprolol Tartrate [Lopressor] 25 mg PO TID #90 tab 11/02/19 [Rx] Nitroglycerin Sl Tabs [Nitrostat] 0.4 mg SUBLINGUAL Q5M PRN #14 tab 11/02/19 [Rx] Spironolactone [Aldactone] 25 mg PO DAILY #30 tab 11/02/19 [Rx] Ticagrelor [Brilinta] 90 mg PO BID #60 tab 11/02/19 [Rx] lisinopriL [Zestril] 10 mg PO DAILY #30 tab 11/02/19 [Rx] Follow up Appointment(s)/Referral(s): Asad Cuba MD [STAFF PHYSICIAN] - 11/20/19 4:45 pm Julia Connell NPC [REFERRING] - 11/19/19 2:30 pm Patient Instructions/Handouts: *Surgery [facility] - After Heart Catheterization - Credentialing Coordinator Instructions, Left Heart Catheterization (DC), Angio-Seal (DC) Discharge Disposition: HOME SELF-CARE
--- NOTE | 2019-11-11 13:24 | P.PN ---
Subjective Progress Note Date: 11/11/19 CHIEF COMPLAINT: Chest pain HISTORY OF PRESENT ILLNESS: Patient is status post cardiac cath with Dr. Cuba with stent placement to the RCA. Patient examined this morning at the bedside. She denies chest pain or pressure. Denies shortness of breath. Vital signs are stable. PHYSICAL EXAM: VITAL SIGNS: Reviewed. GENERAL: Well-developed in no acute distress. HEENT: Head is normocephalic. Pupils are equal, round. Sclerae anicteric. Mucous membranes of the mouth are moist. Neck supple. No JVD or thyromegaly LUNGS: Respirations even and unlabored. Lungs essentially clear to auscultation bilaterally. HEART: Regular rate and rhythm. S1 and S2 heard. EXTREMITIES: Normal range of motion. No clubbing or cyanosis. Peripheral pulses intact. No lower extremity edema. Right groin cath site with pulse present. No hematoma. NEUROLOGIC: Awake and alert. Oriented x 3. ASSESSMENT: Chest pain, s/p cardiac cath with PCI to RCA Coronary artery disease with previous PCI to LAD x 3 Ischemic cardiomyopathy, EF 30-35% Hypertension Diabetes mellitus, type II Obesity: BMI 36.5 PLAN: Patient is stable for discharge home today from a cardiac perspective. Will defer to internal medicine. Continue aspirin and Plavix. Patient to follow up outpatient with Dr. Cuba. Nurse practitioner note has been reviewed by physician. Signing provider agrees with the documented findings, assessment, and plan of care. Objective - Vital Signs Vital signs: Vital Signs Temp 97.4 F L 11/11/19 09:00 Pulse 63 11/11/19 12:15 Resp 16 11/11/19 12:15 BP 132/70 11/11/19 12:15 Pulse Ox 97 11/11/19 12:15 Intake & Output 11/10/19 11/11/19 11/11/19 18:59 06:59 18:59 Intake Total 523.7 Output Total 100 Balance 423.7 Weight 99.5 kg 100 kg Intake: IV 173.7 Oral 350 Output: Urine 100 Other: Voiding Method Toilet Toilet # Voids 1 1 1 - Labs CBC & Chem 7: 11/11/19 06:52 11/11/19 06:52 Labs: Abnormal Lab Results - Last 24 Hours (Table) 11/10/19 11/10/19 11/11/19 Range/Units 17:17 20:40 06:11 Creatinine (0.52-1.04) mg/dL Glucose (74-99) mg/dL POC Glucose (mg/dL) 101 H 169 H 141 H (75-99) mg/dL 11/11/19 11/11/19 Range/Units 06:52 11:35 Creatinine 0.50 L (0.52-1.04) mg/dL Glucose 144 H (74-99) mg/dL POC Glucose (mg/dL) 198 H (75-99) mg/dL
--- NOTE | 2019-11-13 01:33 | CDI ---
Documentation Clarification Form Date: 11/13/2019 From: Rober Burkett Phone: If you have a question about this query, please contact Marianna Childers, Disability Specialist at [phone] between 8am and 5pm. Admit Date: 11/09/2019 Discharge Date: 11/11/2019 Patient Name: Pebbles Weber Visit Number: [id number] ATTENTION: The Clinical Documentation Specialists (CDI) and [facility] Coding Staff appreciate your assistance in clarifying documentation. Please respond to the clarification below the line at the bottom and electronically sign. The CDI & [facility] Coding staff will review the response and follow-up if needed. Please note: Queries are made part of the Legal Health Record. If you have any questions, please contact the author of this message via ITS. Dear Zane Howard MD., The patient presented with the Unstable angina and underwent Stent placement. History/Risk Factors: Ischemic cardiomyopathy, CAD,HTN Patient admitted in this admission with unstable angina and underwent Drug eluting stent and ruled out MD in this admission. Recently admitted with acute ST-segment elevation myocardial infarction and underwent stent insertion on and continued cardiac medications such as "Zestril, Brilinta, Aldactone, Lasix, Nitrostat". In your professional opinion, can you please clarify STEMI meets secondary diagnosis in this admission? YES NO Other, please specify Unable to determine _ As per cardiology refer to the documentation MTDD
== END 2019-11-11 12:49 | disposition home or self-care (01) | DRG 246 ==
LOC: EC 12:51 → 3SCARD 14:28
PROVIDERS: ADMIT Internal Medicine; ATTEND Internal Medicine
PROC: 4A023N7 Measurement of Cardiac Sampling and Pressure, Left Heart, Percutaneous Approach (ICD-10-PCS; principal; 2019-11-10 09:30)
PROC: 027034Z Dilation of Coronary Artery, One Artery with Drug-eluting Intraluminal Device, Percutaneous Approach (ICD-10-PCS; principal; 2019-11-10 09:30)
PROC: 4A033BC Measurement of Arterial Pressure, Coronary, Percutaneous Approach (ICD-10-PCS; principal; 2019-11-10 09:30)
PROC: B2111ZZ Fluoroscopy of Multiple Coronary Arteries using Low Osmolar Contrast (ICD-10-PCS; principal; 2019-11-10 09:30)
DX: I25.110 Atherosclerotic heart disease of native coronary artery with unstable angina pectoris (principal); I21.4 Non-ST elevation (NSTEMI) myocardial infarction; M19.90 Unspecified osteoarthritis, unspecified site; K21.9 Gastro-esophageal reflux disease without esophagitis; I10 Essential (primary) hypertension; E11.40 Type 2 diabetes mellitus with diabetic neuropathy, unspecified; Z96.1 Presence of intraocular lens; E66.9 Obesity, unspecified; E83.42 Hypomagnesemia; J45.909 Unspecified asthma, uncomplicated; E11.65 Type 2 diabetes mellitus with hyperglycemia; I25.5 Ischemic cardiomyopathy; Z79.899 Other long term (current) drug therapy; Z79.82 Long term (current) use of aspirin; Z79.4 Long term (current) use of insulin; Z79.02 Long term (current) use of antithrombotics/antiplatelets; Z95.5 Presence of coronary angioplasty implant and graft; Z90.710 Acquired absence of both cervix and uterus; Z90.49 Acquired absence of other specified parts of digestive tract; Z86.73 Personal history of transient ischemic attack (TIA), and cerebral infarction without residual deficits; Z98.891 History of uterine scar from previous surgery; Z98.42 Cataract extraction status, left eye; Z82.49 Family history of ischemic heart disease and other diseases of the circulatory system; Z68.36 Body mass index [BMI] 36.0-36.9, adult; I25.2 Old myocardial infarction
CPT/HCPCS: 36415; 71046; 80048; 80053; 80061; 83735; 84484; 85025; 85610; 85730; 93005; 93458; 93571; 96365; 96366; 99291

== ENCOUNTER 2020-07-02 09:32 | Inpatient (IN) | payer MEDICARE ==
--- NOTE | 2020-07-02 10:14 | ED ---
Chest Pain HPI - General Chief Complaint: Chest Pain Stated Complaint: Chest Pain Time Seen by Provider: 07/02/20 09:42 Source: patient, RN notes reviewed Mode of arrival: wheelchair Limitations: no limitations - History of Present Illness Initial Comments: This is a 70-year-old female with a history of cardiac cath with a total of 4 stents this past October who presents with complaints of the onset of chest pain. States the pain is left-sided somewhat sharp and radiates to her back and left upper anterior chest wall. He denies any fevers chills nausea vomiting sweats he states/10 severity increases movement deep breathing is different than the pain she had with her previous cardiac events. It started around 6 AM this morning. No other complaints or modifying factors MD Complaint: chest pain - Related Data Home Medications Medication Instructions Recorded Confirmed Insulin Glargine,Hum.rec.anlog 35 unit SQ BID 10/30/19 07/02/20 [Lantus Solostar] Repaglinide [Prandin] 1 mg PO AC-TID 10/30/19 07/02/20 Clindamycin HCl 300 mg PO Q12HR 07/02/20 07/02/20 Furosemide [Lasix] 20 mg PO DAILY 07/02/20 07/02/20 Insulin Aspart [NovoLOG Flexpen] 10 units SQ HS 07/02/20 07/02/20 Previous Rx's Medication Instructions Recorded Aspirin 81 mg PO DAILY #30 chew 11/02/19 Atorvastatin [Lipitor] 80 mg PO HS #30 tab 11/02/19 Metoprolol Tartrate [Lopressor] 25 mg PO TID #90 tab 11/02/19 Nitroglycerin Sl Tabs [Nitrostat] 0.4 mg SUBLINGUAL Q5M PRN #14 tab 11/02/19 Spironolactone [Aldactone] 25 mg PO DAILY #30 tab 11/02/19 Ticagrelor [Brilinta] 90 mg PO BID #60 tab 11/02/19 lisinopriL [Zestril] 10 mg PO DAILY #30 tab 11/02/19 Allergies Allergy/AdvReac Type Severity Reaction Status Date / Time No Known Allergies Allergy Verified 07/02/20 10:07 Review of Systems ROS Statement: Those systems with pertinent positive or pertinent negative responses have been documented in the HPI. ROS Other: All systems not noted in ROS Statement are negative. 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 History of Any Multi-Drug Resistant Organisms: None Reported Past Surgical History: Section, Cholecystectomy, Heart Catheterization With Stent, Hysterectomy, Joint Replacement, Orthopedic Surgery Additional Past Surgical History / Comment(s): 10/30/19 PCI with stents LAD/a spiration thrombectomy, bilateral knee arthroscopies, L shoulder rotator cuff repair, R shoulder frozen shoulder/manipulation and fractured, exploratory laparoscopy with endometrial scraping, R percutaneous nephrostolithotomy twice for stones, colonoscopies/benign polypectomies, esophageal dilations, L eye cataract removal/lens implant. 3 stents placed 10-30-2019 Past Anesthesia/Blood Transfusion Reactions: No Reported Reaction Additional Past Anesthesia/Blood Transfusion Reaction / Comment(s): Pt has received blood in past after hysterectomy without reaction Date of Last Stent Placement:: 10/30/2019 Past Psychological History: No Psychological Hx Reported Smoking Status: Never smoker Past Alcohol Use History: None Reported Past Drug Use History: None Reported - Past Family History Mother History Unknown: Yes Family Medical History: No Reported History Additional Family Medical History / Comment(s): Mother at the age of 38 yrs but pt states she never knew cause. Father Family Medical History: Myocardial Infarction (NE) Additional Family Medical History / Comment(s): Father had his first NE at the age of 65 yrs, then of a NE at the age of 83 yrs. General Exam - General Exam Comments Initial Comments: This is a well-developed well-nourished awake alert oriented 3 female Limitations: no limitations General appearance: alert, anxious Head exam: Present: atraumatic, normocephalic, normal inspection Eye exam: Present: normal appearance, PERRL, EOMI. Absent: scleral icterus, conjunctival injection, periorbital swelling ENT exam: Present: normal exam, mucous membranes moist Neck exam: Present: normal inspection, full ROM, other. Absent: tenderness, meningismus, lymphadenopathy Respiratory exam: Present: normal lung sounds bilaterally, chest wall tenderness (No stridor JVD or bruits tennis palpation of left costal sternal margin). Absent: respiratory distress, wheezes, rales, rhonchi, stridor Cardiovascular Exam: Present: regular rate, normal rhythm, normal heart sounds. Absent: systolic murmur, diastolic murmur, rubs, gallop, clicks GI/Abdominal exam: Present: soft, normal bowel sounds. Absent: distended, tenderness, guarding, rebound, rigid Extremities exam: Present: normal inspection, full ROM, normal capillary refill. Absent: tenderness, pedal edema, joint swelling, calf tenderness Back exam: Present: normal inspection Neurological exam: Present: alert, oriented X3, CN II-XII intact Psychiatric exam: Present: normal affect, normal mood Skin exam: Present: warm, dry, intact, normal color. Absent: rash Course Vital Signs 07/02/20 09:35 Temperature 98.2 F Pulse Rate 37 L Respiratory 18 Rate Blood Pressure 191/77 O2 Sat by Pulse 97 Oximetry - Reevaluation(s) Reevaluation #1: 07/02/20 10:15 Review of EKGs from November of this past year shows similar configuration except for the bigeminy. He bigeminy appears be new Chest Pain MDM - MDM Imaging reviewed no acute findings. Reevaluation patient finds it feels somewhat improved at this time. I did discuss findings with her as well as with Dr. Avery and Dr. Martin, the patient will be admitted for inpatient evaluation Critical Care Time Critical Care Time: Yes Total Critical Care Time: 31 Critical Care Time: Critical care time includes initial presentation with history physical labs x- rays review of old charting was available evaluation of patient response to treatment discussion with multiple physicians admission orders neck mentation the above Disposition Clinical Impression: Chest pain, Bigeminy, Hypomagnesemia syndrome Disposition: ADMITTED IP TO THIS [facility] Condition: Fair Referrals: Pastor Blackman MD [Primary Care Provider] - 1-2 days
[2020-07-02 10:31] LABS: Basophils # (A) 0.1 k/uL (0-0.2); Basophils % (A) 0 %; Eosinophils # (A) 0.3 k/uL (0-0.7); Eosinophils % (A) 2 %; HCT 47.4 % (34.0-46.0); Lymphocytes # (A) 2.5 k/uL (1.0-4.8); Lymphocytes % (A) 22 %; MCH 29.4 pg (25.0-35.0); MCHC 33.8 g/dL (31.0-37.0); Mean Platelet Volume 7.1; Monocytes # (A) 0.5 k/uL (0-1.0); Monocytes % (A) 4 %; Neutrophils # (A) 7.8 k/uL (1.3-7.7); Neutrophils % (A) 70 %; Platelet Count 215 k/uL (150-450); RBC 5.45 m/uL (3.80-5.40); RDW 12.5 % (11.5-15.5); WBC 11.1 k/uL (3.8-10.6)
[2020-07-02 10:54] LABS: ALT 48 U/L (4-34); AST 33 U/L (14-36); African American GFR (CKD) >90 (>60 ml/min/1.73 sqM); Albumin 3.9 g/dL (3.5-5.0); Alkaline Phosphatase 125 U/L (38-126); Anion Gap 7 mmol/L; Blood Urea Nitrogen 20 mg/dL (7-17); Calcium 10.6 mg/dL (8.4-10.2); Carbon Dioxide 25 mmol/L (22-30); Chloride 106 mmol/L (98-107); Creatine Kinase 42 U/L (30-135); Glucose 277 mg/dL (74-99); Lipase 124 U/L (23-300); Magnesium 1.3 mg/dL (1.6-2.3); Non-African American GFR(CKD) >90 (>60 ml/min/1.73 sqM); Potassium 4.7 mmol/L (3.5-5.1); Sodium 138 mmol/L (137-145); Total Bilirubin 2.3 mg/dL (0.2-1.3); Total Protein 6.6 g/dL (6.3-8.2)
[2020-07-02 11:02] LABS: D-Dimer 0.52 mg/L FEU (<0.60); Partial Thromboplastin Time 22.7 sec (22.0-30.0); Prothrombin Time 10.6 sec (9.0-12.0)
--- NOTE | 2020-07-02 11:12 | XR ---
EXAMINATION TYPE: XR chest 2V DATE OF EXAM: 07/02/2020 COMPARISON: Chest x-ray 11/09/2019 HISTORY: Chest pain TECHNIQUE: Frontal and lateral views of the chest are obtained. FINDINGS: There is no significant interval change. Interstitium is mildly increased, there may be a spinal curvature, patient is rotated. Cardiac mediastinal silhouette is unchanged. No evident airspac e disease, pneumothorax, pleural effusion. Minimal probable scarring, bandlike area of increased dens ity in the left mid lung is again noted. Bones are stable. There are overlying leads. There are coron vish artery calcifications, possible stent. IMPRESSION: Coronary artery disease. Correlate to exclude pulmonary venous hypertension and early in terstitial edema.
[2020-07-02] MEDS ORDERED: MAGNESIUM SULFATE-D5W PMX 1 GM in DEXTROSE/WATER 1 100ML.BAG IVPB ONE (11:29)
[2020-07-02] MEDS ORDERED: HEPARIN SODIUM 1,000 UN/ML (10ML VL) IV ONE (13:20)
[2020-07-02] MEDS ORDERED: NITROGLYCERIN SL TABS 0.4 MG TAB SUBLINGUAL PRN (13:20)
[2020-07-02] MEDS ORDERED: HEPARIN SOD,PORK IN 0.45% NACL 25,000 UNIT in 0.45% NACL 1 250ML.BAG IV SCH (13:30)
[2020-07-02] MEDS: SODIUM CHLORIDE 0.9% 1,000 ML IV SCH (13:53)
--- NOTE | 2020-07-02 15:51 | P.HPIM ---
History of Present Illness H&P Date: 07/02/20 This is a 70-year-old female with very complex past medical history noted below significant for coronary artery disease with prior stent placement that presented to the emergency room with chest pain. Patient said that her pain started around 6:00 this morning and is mostly in the left side of her chest. She described the pain as sharp and radiating to her back and left upper chest. Patient denies any palpitation or shortness of breath. She said that her pain is waxing and waning but is constant most of the time. She denies diaphoresis or lightheadedness. Patient was evaluated in the ER and will be placed on observation for further evaluation. Review of Systems Review of system: 14 points review of systems were obtained and were negative except to what were mentioned in the HPI. 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 History of Any Multi-Drug Resistant Organisms: None Reported Past Surgical History: Section, Cholecystectomy, Heart Catheterization With Stent, Hysterectomy, Joint Replacement, Orthopedic Surgery Additional Past Surgical History / Comment(s): 10/30/19 PCI with stents LAD/aspiration thrombectomy, bilateral knee arthroscopies, L shoulder rotator cuff repair, R shoulder frozen shoulder/manipulation and fractured, exploratory laparoscopy with endometrial scraping, R percutaneous nephrostolithotomy twice for stones, colonoscopies/benign polypectomies, esophageal dilations, L eye cataract removal/lens implant. 3 stents placed 10-30-2019 Past Anesthesia/Blood Transfusion Reactions: No Reported Reaction Additional Past Anesthesia/Blood Transfusion Reaction / Comment(s): Pt has received blood in past after hysterectomy without reaction Date of Last Stent Placement:: 10/30/2019 Past Psychological History: No Psychological Hx Reported Smoking Status: Never smoker Past Alcohol Use History: None Reported Past Drug Use History: None Reported - Past Family History Mother History Unknown: Yes Family Medical History: No Reported History Additional Family Medical History / Comment(s): Mother at the age of 38 yrs but pt states she never knew cause. Father Family Medical History: Myocardial Infarction (AL) Additional Family Medical History / Comment(s): Father had his first AL at the age of 65 yrs, then of a AL at the age of 83 yrs. Medications and Allergies Home Medications Medication Instructions Recorded Confirmed Type Insulin Glargine,Hum.rec.anlog 35 unit SQ BID 10/30/19 07/02/20 History [Lantus Solostar] Repaglinide [Prandin] 1 mg PO AC-TID 10/30/19 07/02/20 History Aspirin 81 mg PO DAILY #30 chew 11/02/19 07/02/20 Rx Atorvastatin [Lipitor] 80 mg PO HS #30 tab 11/02/19 07/02/20 Rx Metoprolol Tartrate [Lopressor] 25 mg PO TID #90 tab 11/02/19 07/02/20 Rx Nitroglycerin Sl Tabs [Nitrostat] 0.4 mg SUBLINGUAL Q5M PRN #14 tab 11/02/19 07/02/20 Rx Spironolactone [Aldactone] 25 mg PO DAILY #30 tab 11/02/19 07/02/20 Rx Ticagrelor [Brilinta] 90 mg PO BID #60 tab 11/02/19 07/02/20 Rx lisinopriL [Zestril] 10 mg PO DAILY #30 tab 11/02/19 07/02/20 Rx Clindamycin HCl 300 mg PO Q12HR 07/02/20 07/02/20 History Furosemide [Lasix] 20 mg PO DAILY 07/02/20 07/02/20 History Insulin Aspart [NovoLOG Flexpen] 10 units SQ HS 07/02/20 07/02/20 History Allergies Allergy/AdvReac Type Severity Reaction Status Date / Time No Known Allergies Allergy Verified 07/02/20 10:07 Physical Exam Vitals: Vital Signs Temp Pulse Resp BP Pulse Ox 07/02/20 13:55 64 18 130/73 07/02/20 09:35 98.2 F 37 L 18 191/77 97 Intake and Output 07/02/20 07/02/20 07/02/20 06:59 14:59 22:59 Other: Weight 93.44 kg General: The patient is awake and alert, in no distress Eye: there is normal conjunctiva bilaterally. Neck: The neck is supple, there is no JVD. Cardiovascular: Normal S1-S2, no S3-S4, no murmurs. Respiratory: Lungs clear to auscultation bilaterally Gastrointestinal: Abdomen is soft, nontender Musculoskeletal: There is no pedal edema. Neurological:. Speech is normal. Skin: Skin is warm and dry Results CBC & Chem 7: 07/02/20 10:11 07/02/20 10:11 Labs: Abnormal Lab Results - Last 24 Hours (Table) 07/02/20 07/02/20 Range/Units 10:11 10:11 WBC 11.1 H (3.8-10.6) k/uL RBC 5.45 H (3.80-5.40) m/uL Hct 47.4 H (34.0-46.0) % Neutrophils # 7.8 H (1.3-7.7) k/uL BUN 20 H (7-17) mg/dL Creatinine 0.45 L (0.52-1.04) mg/dL Glucose 277 H (74-99) mg/dL Calcium 10.6 H (8.4-10.2) mg/dL Magnesium 1.3 L (1.6-2.3) mg/dL Total Bilirubin 2.3 H (0.2-1.3) mg/dL ALT 48 H (4-34) U/L Assessment and Plan Assessment: 1. Chest pain, 12-lead EKG in the ER showed no acute ischemic changes. Troponin negative 2 sets. Patient will be placed on observation awaiting cardiology evaluation. 2. Coronary artery disease with prior RCA stent placement, on dual antiplatelet therapy 3. Type 2 diabetes, continue home dose of insulin plus sliding scale 4. Chronic medical problems: Essential hypertension, hyperlipidemia
[2020-07-02] MEDS: METOPROLOL TARTRATE 25 MG TAB PO SCH ×2 (16:38→21:34)
[2020-07-02 17:04] LABS: Glucose,Whole Blood 230 mg/dL (75-99)
[2020-07-02] MEDS: INSULIN ASPART (NovoLOG) 100 UNIT/ML VIAL SQ SCH ×3 (17:06→21:34)
[2020-07-02] MEDS ORDERED: REPAGLINIDE 1 MG TAB PO SCH (17:30)
[2020-07-02] MEDS: NITROGLYCERIN OINT 1 INCH/GM PACKET TOPICAL SCH ×2 (18:23→22:39)
[2020-07-02] MEDS ORDERED: HEPARIN SODIUM 1,000 UN/ML (10ML VL) IVP STA (20:35)
[2020-07-02 21:12] LABS: Glucose,Whole Blood 268 mg/dL (75-99)
[2020-07-02] MEDS: ATORVASTATIN 80 MG TAB PO SCH (21:34)
[2020-07-02] MEDS: TICAGRELOR 90 MG TAB PO SCH (21:34)
[2020-07-02] MEDS: INSULIN DETEMIR (LEVEMIR) 100 UNIT/ML SYR SQ SCH (21:34)
[2020-07-02] MEDS: CLINDAMYCIN 150 MG CAP PO SCH (21:46)
[2020-07-02] MEDS ORDERED: ACETAMINOPHEN TAB 325 MG TAB PO PRN (23:10)
[2020-07-03 05:34] LABS: African American GFR (CKD) >90 (>60 ml/min/1.73 sqM); Anion Gap 5 mmol/L; Blood Urea Nitrogen 15 mg/dL (7-17); Calcium 10.2 mg/dL (8.4-10.2); Carbon Dioxide 26 mmol/L (22-30); Chloride 105 mmol/L (98-107); Glucose 191 mg/dL (74-99); Magnesium 1.6 mg/dL (1.6-2.3); Non-African American GFR(CKD) >90 (>60 ml/min/1.73 sqM); Potassium 4.2 mmol/L (3.5-5.1); Sodium 136 mmol/L (137-145)
[2020-07-03 06:06] LABS: Glucose,Whole Blood 175 mg/dL (75-99)
[2020-07-03] MEDS: NITROGLYCERIN OINT 1 INCH/GM PACKET TOPICAL SCH ×4 (06:31→23:04)
[2020-07-03] MEDS: INSULIN ASPART (NovoLOG) 100 UNIT/ML VIAL SQ SCH ×5 (06:32→20:50)
[2020-07-03] MEDS ORDERED: MAGNESIUM SULFATE-D5W PMX 1 GM in DEXTROSE/WATER 1 100ML.BAG IVPB ONE (07:15)
[2020-07-03] MEDS: FUROSEMIDE 20 MG TAB PO SCH (09:37)
[2020-07-03] MEDS: SPIRONOLACTONE 25 MG TAB PO SCH (09:37)
[2020-07-03] MEDS: METOPROLOL TARTRATE 25 MG TAB PO SCH ×3 (09:37→20:49)
[2020-07-03] MEDS: lisinopriL 10 MG TAB PO SCH (09:37)
[2020-07-03] MEDS: ASPIRIN 81 MG PO SCH (09:37)
[2020-07-03] MEDS: TICAGRELOR 90 MG TAB PO SCH ×2 (09:38→20:49)
[2020-07-03] MEDS: INSULIN DETEMIR (LEVEMIR) 100 UNIT/ML SYR SQ SCH ×2 (09:38→20:50)
[2020-07-03] MEDS: CLINDAMYCIN 150 MG CAP PO SCH ×2 (09:38→20:49)
[2020-07-03 10:22] LABS: Cholesterol 100 mg/dL (0-200); LDL Cholesterol,Calculated 50.6 mg/dL (0.0-131.0)
[2020-07-03 12:19] LABS: Glucose,Whole Blood 290 mg/dL (75-99)
--- NOTE | 2020-07-03 12:37 | P.DS ---
Providers Date of admission: 07/02/20 13:20 Expected date of discharge: 07/03/20 Attending physician: Ronny Luna Consults: 07/02/20 13:20 Consult Physician Urgent Consulting Provider: Asad Cuba Consult Reason/Comments: Chest pain, bigeminy, hypomagnesemia Do you want consulting provider notified?: Yes Primary care physician: Pastor Blackman MD Hospital Course: This is a 70-year-old female with very complex past medical history noted below significant for coronary artery disease with prior stent placement that presented to the emergency room with chest pain. 1. Chest pain: ACS ruled out. 12-lead EKG in the ER showed no acute ischemic changes. Troponin negative 3 sets. Patient was chest pain-free on the day of discharge. She was able to get up and ambulate to the bathroom with no difficulty. She was seen and evaluated by cardiology. 2. Coronary artery disease with prior RCA stent placement, on dual antiplatelet therapy. Most recent heart catheterization in November 2019 with mid RCA stent placement 3. Type 2 diabetes, resume home medication 4. Chronic medical problems: Essential hypertension, hyperlipidemia Patient will be discharged home in a stable condition. For further details about this hospitalization please refer to the electronic chart. Time spent on discharge > 30 minutes including counseling and coordination of care Patient Condition at Discharge: Stable Plan - Discharge Summary Discharge Rx Participant: No New Discharge Prescriptions: Continue Repaglinide [Prandin] 1 mg PO AC-TID Insulin Glargine,Hum.rec.anlog [Lantus Solostar] 35 unit SQ BID Spironolactone [Aldactone] 25 mg PO DAILY #30 tab Aspirin 81 mg PO DAILY #30 chew Ticagrelor [Brilinta] 90 mg PO BID #60 tab Atorvastatin [Lipitor] 80 mg PO HS #30 tab Metoprolol Tartrate [Lopressor] 25 mg PO TID #90 tab Nitroglycerin Sl Tabs [Nitrostat] 0.4 mg SUBLINGUAL Q5M PRN #14 tab PRN Reason: Chest Pain lisinopriL [Zestril] 10 mg PO DAILY #30 tab Insulin Aspart [NovoLOG Flexpen] 10 units SQ HS Clindamycin HCl 300 mg PO Q12HR Furosemide [Lasix] 20 mg PO DAILY Discharge Medication List Insulin Glargine,Hum.rec.anlog [Lantus Solostar] 35 unit SQ BID 10/30/19 [History] Repaglinide [Prandin] 1 mg PO AC-TID 10/30/19 [History] Aspirin 81 mg PO DAILY #30 chew 11/02/19 [Rx] Atorvastatin [Lipitor] 80 mg PO HS #30 tab 11/02/19 [Rx] Metoprolol Tartrate [Lopressor] 25 mg PO TID #90 tab 11/02/19 [Rx] Nitroglycerin Sl Tabs [Nitrostat] 0.4 mg SUBLINGUAL Q5M PRN #14 tab 11/02/19 [Rx] Spironolactone [Aldactone] 25 mg PO DAILY #30 tab 11/02/19 [Rx] Ticagrelor [Brilinta] 90 mg PO BID #60 tab 11/02/19 [Rx] lisinopriL [Zestril] 10 mg PO DAILY #30 tab 11/02/19 [Rx] Clindamycin HCl 300 mg PO Q12HR 07/02/20 [History] Furosemide [Lasix] 20 mg PO DAILY 07/02/20 [History] Insulin Aspart [NovoLOG Flexpen] 10 units SQ HS 07/02/20 [History] Follow up Appointment(s)/Referral(s): Pastor Blackman MD [Primary Care Provider] - 1-2 days Discharge Disposition: HOME SELF-CARE
--- NOTE | 2020-07-03 13:37 | P.CRDCN ---
History of Present Illness Consult date: 07/03/20 Consult reason: chest pain History of present illness: The patient is a 70-year-old female who follows with Dr. Avery in the office. She has no coronary artery disease and underwent stenting of RCA in November 2019. She was also known to have intermediate lesion in her left circumflex, however FFR became nonischemic at that time. She also has a history of diabetes mellitus, hypertension, and chronic kidney disease. She presented to the [facility] room with chest discomfort and increasing shortness of breath. Patient states it was a heaviness like sensation. DIAGNOSTICS: EKG showed bigeminy Laboratory data shows WBC 11.1, hemoglobin 16.0, hematocrit 47.4, platelet 250, sodium 138, potassium 4.7, BUN 20, creatinine 0.45, AST 33, ALT 48, troponins negative 2, BNP 400, LDL 50, HDL 25,, triglycerides 122 Chest x-ray shows coronary calcifications. Possible pulmonary venous hypertension and early interstitial edema. No effusions. PAST MEDICAL HISTORY: Multivessel coronary artery disease, obesity, hypertension, dyslipidemia REVIEW OF SYSTEMS: No fever or chills. No cough or expectoration. No diaphoresis. Patient denies headache, dizziness, blurred vision, double vision. Patient denies any stomach discomfort. No nausea, vomiting. No hematochezia. No hematemesis. Denies any black stools or blood in his stools. Denies dysuria or hematuria. No muscle weakness or numbness. No more chest discomfort. PHYSICAL EXAMINATION: This is a 70-year-old female in no apparent distress at the time of my examination. HEENT: Head is atraumatic, normocephalic. Pupils are equal, round. Sclerae anicteric. Conjunctivae are clear. Mucous membranes of the mouth are moist. Neck is supple. There is no jugular venous distention. No carotid bruit is heard. CHEST EXAMINATION: Inspiratory wheezes. No chest wall tenderness is noted on palpation. Mild discomfort with deep breathing. HEART EXAMINATION: Heart regular rate and rhythm. S1, S2 heard. No murmurs, gallops or rub. ABDOMEN: Soft, nontender. Bowel sounds are heard. No organomegaly noted. EXTREMITIES: 2+ peripheral pulses with no evidence of peripheral edema and no calf tenderness noted. NEUROLOGIC EXAMINATION: Patient is awake, alert and oriented x3. FINAL ASSESSMENT AND PLAN: Chest discomfort, resolved, ACS workup unremarkable Hypertension, well controlled Dyslipidemia on statin therapy Chest discomfort, pleuritic in nature PLAN: Discontinue nitro paste Encourage ambulation around the unit If she remains chest pain-free through tomorrow, we will decide or discharge with outpatient follow-up Further recommendations based on clinical course The patient has been seen and evaluated. Plan of care has been reviewed and agreed upon by Dr Gambino. 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 History of Any Multi-Drug Resistant Organisms: None Reported Past Surgical History: Section, Cholecystectomy, Heart Catheterization With Stent, Hysterectomy, Joint Replacement, Orthopedic Surgery Additional Past Surgical History / Comment(s): 10/30/19 PCI with stents LAD/aspiration thrombectomy, bilateral knee arthroscopies, L shoulder rotator cuff repair, R shoulder frozen shoulder/manipulation and fractured, exploratory laparoscopy with endometrial scraping, R percutaneous nephrostolithotomy twice for stones, colonoscopies/benign polypectomies, esophageal dilations, L eye cataract removal/lens implant. 3 stents placed 10-30-2019 Past Anesthesia/Blood Transfusion Reactions: No Reported Reaction Additional Past Anesthesia/Blood Transfusion Reaction / Comment(s): Pt has received blood in past after hysterectomy without reaction Date of Last Stent Placement:: 10/30/2019 Past Psychological History: No Psychological Hx Reported Additional Psychological History / Comment(s): Pt resides with her siva and grandchildren. She is independent. Smoking Status: Never smoker Past Alcohol Use History: None Reported Past Drug Use History: None Reported - Past Family History Mother History Unknown: Yes Family Medical History: No Reported History Additional Family Medical History / Comment(s): Mother at the age of 38 yrs but pt states she never knew cause. Father Family Medical History: Myocardial Infarction (KS) Additional Family Medical History / Comment(s): Father had his first KS at the age of 65 yrs, then of a KS at the age of 83 yrs. Medications and Allergies Home Medications Medication Instructions Recorded Confirmed Type Insulin Glargine,Hum.rec.anlog 35 unit SQ BID 10/30/19 07/02/20 History [Lantus Solostar] Repaglinide [Prandin] 1 mg PO AC-TID 10/30/19 07/02/20 History Aspirin 81 mg PO DAILY #30 chew 11/02/19 07/02/20 Rx Atorvastatin [Lipitor] 80 mg PO HS #30 tab 11/02/19 07/02/20 Rx Metoprolol Tartrate [Lopressor] 25 mg PO TID #90 tab 11/02/19 07/02/20 Rx Nitroglycerin Sl Tabs [Nitrostat] 0.4 mg SUBLINGUAL Q5M PRN #14 tab 11/02/19 07/02/20 Rx Spironolactone [Aldactone] 25 mg PO DAILY #30 tab 11/02/19 07/02/20 Rx Ticagrelor [Brilinta] 90 mg PO BID #60 tab 11/02/19 07/02/20 Rx lisinopriL [Zestril] 10 mg PO DAILY #30 tab 11/02/19 07/02/20 Rx Clindamycin HCl 300 mg PO Q12HR 07/02/20 07/02/20 History Furosemide [Lasix] 20 mg PO DAILY 07/02/20 07/02/20 History Insulin Aspart [NovoLOG Flexpen] 10 units SQ HS 07/02/20 07/02/20 History Allergies Allergy/AdvReac Type Severity Reaction Status Date / Time No Known Allergies Allergy Verified 07/02/20 10:07 Physical Exam Vitals: Vital Signs Temp Pulse Pulse Resp BP BP Pulse Ox 07/03/20 12:00 50 L 116/56 96 07/03/20 08:00 97.8 F 60 18 123/73 96 07/03/20 03:34 98.1 F 54 L 18 115/67 97 07/03/20 01:42 66 18 07/03/20 00:00 98.0 F 66 18 140/68 97 07/02/20 21:15 98.2 F 55 L 18 127/57 97 07/02/20 21:05 55 L 18 07/02/20 20:25 98.5 F 53 L 18 125/62 97 07/02/20 16:36 69 18 127/70 07/02/20 13:55 64 18 130/73 Intake and Output 07/02/20 07/03/20 07/03/20 22:59 06:59 14:59 Intake Total 88.486 270.729 Balance 88.486 270.729 Intake: Intake, IV Titration 88.486 270.729 Amount Heparin Sod,Pork in 0.45% 68.486 110.729 NaCl 25,000 unit In 0.45 % NaCl 1 250ml.bag @ 10.7 UNITS/KG/HR 9.998 mls/hr IV .Q24H [facility] Rx#: [id number] Sodium Chloride 0.9% 1, 20 160 000 ml @ 20 mls/hr IV . Q24H [facility] Rx#:[id number] Other: Voiding Method Toilet Toilet # Voids 1 Weight 93.44 kg 94.3 kg Results 07/02/20 10:11 07/03/20 04:01 Cardiac Enzymes 07/02/20 07/02/20 07/03/20 Range/Units 14:13 17:55 00:10 Troponin I <0.012 <0.012 <0.012 (0.000-0.034) ng/mL 07/03/20 07/03/20 Range/Units 04:01 07:13 Troponin I <0.012 <0.012 (0.000-0.034) ng/mL Coagulation 07/02/20 07/03/20 Range/Units 19:26 04:01 APTT 34.0 H 69.7 H (22.0-30.0) sec Lipids 07/03/20 Range/Units 04:01 Triglycerides 122.0 (0.0-149.0) mg/dL Cholesterol 100 (0-200) mg/dL HDL Cholesterol 25.0 L (40.0-60.0) mg/dL Cholesterol/HDL Ratio 4.00 Comprehensive Metabolic Panel 07/03/20 Range/Units 04:01 Sodium 136 L (137-145) mmol/L Potassium 4.2 (3.5-5.1) mmol/L Chloride 105 (98-107) mmol/L Carbon Dioxide 26 (22-30) mmol/L BUN 15 (7-17) mg/dL Creatinine 0.46 L (0.52-1.04) mg/dL Glucose 191 H (74-99) mg/dL Calcium 10.2 (8.4-10.2) mg/dL Current Medications Generic Name Dose Route Start Last Admin Trade Name Freq PRN Reason Stop Dose Admin Acetaminophen 650 mg 07/02/20 23:10 Acetaminophen Tab 325 Mg Tab PO Q4HR PRN Fever and/ or Pain Aspirin 81 mg 07/03/20 09:00 07/03/20 09:37 Aspirin 81 Mg PO 81 mg DAILY [facility] Administration Atorvastatin Calcium 80 mg 07/02/20 21:00 07/02/20 21:34 Atorvastatin 80 Mg Tab PO 80 mg HS [facility] Administration Clindamycin HCl 300 mg 07/02/20 21:00 07/03/20 09:38 Clindamycin 150 Mg Cap PO 300 mg Q12HR [facility] Administration Furosemide 20 mg 07/03/20 09:00 07/03/20 09:37 Furosemide 20 Mg Tab PO 20 mg DAILY [facility] Administration Sodium Chloride 1,000 mls @ 20 mls/hr 07/02/20 13:30 07/02/20 13:53 Saline 0.9% IV 20 mls/hr .Q24H [facility] Administration Insulin Aspart 10 unit 07/02/20 21:00 07/02/20 21:34 Insulin Aspart (Novolog) 100 Unit/Ml Vial SQ 10 unit HS [facility] Administration Insulin Aspart 0 unit 07/02/20 17:30 07/03/20 12:33 Insulin Aspart (Novolog) 100 Unit/Ml Vial SQ 7 unit ACHS [facility] Administration Protocol Insulin Detemir 35 unit 07/02/20 21:00 07/03/20 09:38 Insulin Detemir (Levemir) 100 Unit/Ml Syr SQ 35 unit BID [facility] Administration Lisinopril 10 mg 07/03/20 09:00 07/03/20 09:37 Lisinopril 10 Mg Tab PO 10 mg DAILY [facility] Administration Metoprolol Tartrate 25 mg 07/02/20 16:00 07/03/20 09:37 Metoprolol Tartrate 25 Mg Tab PO 25 mg TID [facility] Administration Nitroglycerin 0.4 mg 07/02/20 13:20 Nitroglycerin Sl Tabs 0.4 Mg Tab SUBLINGUAL Q5M PRN Chest Pain Nitroglycerin 1 inch 07/02/20 18:00 07/03/20 12:32 Nitroglycerin Oint 1 Inch/Gm Packet TOPICAL Not Given Q6HR [facility] Spironolactone 25 mg 07/03/20 09:00 07/03/20 09:37 Spironolactone 25 Mg Tab PO 25 mg DAILY [facility] Administration Ticagrelor 90 mg 07/02/20 21:00 07/03/20 09:38 Ticagrelor 90 Mg Tab PO 90 mg BID [facility] Administration Intake and Output 07/02/20 07/03/20 07/03/20 22:59 06:59 14:59 Intake Total 88.486 270.729 Balance 88.486 270.729 Intake: Intake, IV Titration 88.486 270.729 Amount Heparin Sod,Pork in 0.45% 68.486 110.729 NaCl 25,000 unit In 0.45 % NaCl 1 250ml.bag @ 10.7 UNITS/KG/HR 9.998 mls/hr IV .Q24H [facility] Rx#: [id number] Sodium Chloride 0.9% 1, 20 160 000 ml @ 20 mls/hr IV . Q24H [facility] Rx#:[id number] Other: Voiding Method Toilet Toilet # Voids 1 Weight 93.44 kg 94.3 kg 07/02/20 10:11 07/03/20 04:01
[2020-07-03] MEDS: SODIUM CHLORIDE 0.9% 1,000 ML IV SCH (14:20)
[2020-07-03 17:11] LABS: Glucose,Whole Blood 272 mg/dL (75-99)
[2020-07-03 20:23] LABS: Glucose,Whole Blood 276 mg/dL (75-99)
[2020-07-03] MEDS: ATORVASTATIN 80 MG TAB PO SCH (20:49)
[2020-07-04] MEDS: NITROGLYCERIN OINT 1 INCH/GM PACKET TOPICAL SCH ×4 (05:31→23:55)
[2020-07-04 06:17] LABS: Glucose,Whole Blood 117 mg/dL (75-99)
[2020-07-04] MEDS: INSULIN ASPART (NovoLOG) 100 UNIT/ML VIAL SQ SCH ×5 (06:23→21:32)
[2020-07-04] MEDS: SPIRONOLACTONE 25 MG TAB PO SCH (08:35)
[2020-07-04] MEDS: METOPROLOL TARTRATE 25 MG TAB PO SCH ×3 (08:35→21:31)
[2020-07-04] MEDS: FUROSEMIDE 20 MG TAB PO SCH (08:35)
[2020-07-04] MEDS: ASPIRIN 81 MG PO SCH (08:35)
[2020-07-04] MEDS: lisinopriL 10 MG TAB PO SCH (08:35)
[2020-07-04] MEDS: CLINDAMYCIN 150 MG CAP PO SCH (08:35)
[2020-07-04] MEDS: TICAGRELOR 90 MG TAB PO SCH ×2 (08:35→21:31)
[2020-07-04] MEDS: INSULIN DETEMIR (LEVEMIR) 100 UNIT/ML SYR SQ SCH ×2 (08:36→21:31)
[2020-07-04 11:56] LABS: Glucose,Whole Blood 199 mg/dL (75-99)
--- NOTE | 2020-07-04 12:40 | P.PN ---
Subjective Progress Note Date: 07/04/20 The patient is a 70-year-old female with past medical history of diabetes mellitus, hypertension, and chronic kidney disease, who follows with Dr. Avery in the office. She has no coronary artery disease and underwent stenting of RCA in November 2019. She was also known to have intermediate lesion in her left circumflex, however FFR became nonischemic at that time. She states her chest discomfort has resolved with nitro paste. She states she's had no recurrence of symptoms. She denies any shortness of breath, orthopnea, dizziness, or lightheadedness. GENERAL: Well-appearing, well-nourished and in no acute distress. NECK: Supple without JVD or thyromegaly. LUNGS: Breath sounds clear to auscultation bilaterally. Respiration equal and unlabored. No wheezes, rales or rhonchi. HEART: Regular rate and rhythm without murmurs, rubs or gallops. S1 and S2 heard. EXTREMITIES: Normal range of motion, no edema. No clubbing or cyanosis. Peripheral pulses intact and strong. VITALS: Blood pressure 129/66, SpO2 96% on room air, pulse rate 51, respiratory rate 16, temperature 97.4F TELEMETRY: Sinus rhythm with brief runs of bigeminy overnight. Occasional isolated PVCs. IMPRESSION: Coronary artery disease, history of intermediate lesion in her left circumflex which was nonischemic by FFR in November 2019 Recurrent chest discomfort, relieved with nitroglycerin, concerns for progression of coronary artery disease Hypertension, controlled on current regimen Dyslipidemia History of CVA Diabetes mellitus PLAN: Encourage ambulation to assess for exertional symptoms Consider FFR of circumflex lesion Further recommendations based on clinical course The patient has been seen and evaluated. Plan of care has been reviewed and agreed upon by Dr Gambino. Objective - Vital Signs Vital signs: Vital Signs Temp 97.4 F L 07/04/20 08:00 Pulse 51 L 07/04/20 12:00 Resp 16 07/04/20 12:00 BP 129/66 07/04/20 12:00 Pulse Ox 96 07/04/20 12:00 Intake & Output 07/03/20 07/04/20 07/04/20 18:59 06:59 18:59 Intake Total 580 10 240 Balance 580 10 240 Weight 92.6 kg Intake: IV 100 10 0.9 10 Magnesium Sulfate-D5w Pmx 100 1 gm In Dextrose/Water 1 100ml.bag @ 100 mls/hr IVPB ONCE ONE Rx#: [id number] Oral 480 240 Other: Voiding Method Toilet # Voids 2 - Labs CBC & Chem 7: 07/02/20 10:11 07/03/20 04:01 Labs: Abnormal Lab Results - Last 24 Hours (Table) 07/03/20 07/03/20 07/04/20 Range/Units 17:09 20:22 06:15 POC Glucose (mg/dL) 272 H 276 H 117 H (75-99) mg/dL 07/04/20 Range/Units 11:53 POC Glucose (mg/dL) 199 H (75-99) mg/dL
--- NOTE | 2020-07-04 12:46 | P.PN ---
Subjective Progress Note Date: 07/04/20 Patient is doing well today. Her discharge was canceled yesterday by cardiology to monitor her off of Nitropaste. Patient has been up and about and denies any chest pain. She was surprised today that the auger supervisor wanted to keep her until Sunday for a left heart cath. Objective - Vital Signs Vital signs: Vital Signs Temp 97.4 F L 07/04/20 08:00 Pulse 51 L 07/04/20 12:00 Resp 16 07/04/20 12:00 BP 129/66 07/04/20 12:00 Pulse Ox 96 07/04/20 12:00 Intake & Output 07/03/20 07/04/20 07/04/20 18:59 06:59 18:59 Intake Total 580 10 240 Balance 580 10 240 Weight 92.6 kg Intake: IV 100 10 0.9 10 Magnesium Sulfate-D5w Pmx 100 1 gm In Dextrose/Water 1 100ml.bag @ 100 mls/hr IVPB ONCE ONE Rx#: [id number] Oral 480 240 Other: Voiding Method Toilet # Voids 2 - Exam General: The patient is awake and alert, in no distress Eye: there is normal conjunctiva bilaterally. Neck: The neck is supple, there is no JVD. Cardiovascular: Normal S1-S2, no S3-S4, no murmurs. Respiratory: Lungs clear to auscultation bilaterally Gastrointestinal: Abdomen is soft, nontender Musculoskeletal: There is no pedal edema. Neurological:. Speech is normal. Skin: Skin is warm and dry - Labs CBC & Chem 7: 07/02/20 10:11 07/03/20 04:01 Labs: Abnormal Lab Results - Last 24 Hours (Table) 07/03/20 07/03/20 07/04/20 Range/Units 17:09 20:22 06:15 POC Glucose (mg/dL) 272 H 276 H 117 H (75-99) mg/dL 07/04/20 Range/Units 11:53 POC Glucose (mg/dL) 199 H (75-99) mg/dL Assessment and Plan Assessment: This is a 70-year-old female with very complex past medical history noted below significant for coronary artery disease with prior stent placement that presented to the emergency room with chest pain. 1. Chest pain: ACS ruled out. 12-lead EKG in the ER showed no acute ischemic changes. Troponin negative 3 sets. Patient has been chest pain-free since admission. She was able to get up and ambulate to the bathroom with no difficulty. She was seen and evaluated by cardiology. They recommended left heart cath on Sunday 2. Coronary artery disease with prior RCA stent placement, on dual antiplatelet therapy. Most recent heart catheterization in November 2019 with mid RCA stent placement 3. Type 2 diabetes, resume home medication 4. Chronic medical problems: Essential hypertension, hyperlipidemia
[2020-07-04] MEDS: SODIUM CHLORIDE 0.9% 1,000 ML IV SCH (12:52)
[2020-07-04 17:15] LABS: Glucose,Whole Blood 229 mg/dL (75-99)
[2020-07-04 20:31] LABS: Glucose,Whole Blood 380 mg/dL (75-99)
[2020-07-04] MEDS: ATORVASTATIN 80 MG TAB PO SCH (21:31)
[2020-07-05] MEDS: NITROGLYCERIN OINT 1 INCH/GM PACKET TOPICAL SCH ×3 (06:10→16:49)
[2020-07-05 06:58] LABS: Glucose,Whole Blood 120 mg/dL (75-99)
[2020-07-05] MEDS: INSULIN ASPART (NovoLOG) 100 UNIT/ML VIAL SQ SCH ×5 (06:59→21:16)
[2020-07-05] MEDS ORDERED: SODIUM CHLORIDE 0.9% 1,000 ML in EMPTY BAG 1 BAG IV ONE (08:39)
[2020-07-05] MEDS ORDERED: ALPRAZolam 0.5 MG TAB PO PRN (08:39)
[2020-07-05] MEDS ORDERED: ASPIRIN 325 MG TAB PO STA (08:39)
[2020-07-05] MEDS ORDERED: NITROGLYCERIN SL TABS 0.4 MG TAB SUBLINGUAL PRN (08:39)
[2020-07-05] MEDS ORDERED: ATORVASTATIN 80 MG TAB PO STA (08:39)
[2020-07-05] MEDS ORDERED: ALPRAZolam 0.25 MG TAB PO PRN (08:39)
[2020-07-05] MEDS: lisinopriL 10 MG TAB PO SCH (08:48)
[2020-07-05] MEDS: METOPROLOL TARTRATE 25 MG TAB PO SCH ×3 (08:48→21:16)
[2020-07-05] MEDS: FUROSEMIDE 20 MG TAB PO SCH (08:48)
[2020-07-05] MEDS: ASPIRIN 81 MG PO SCH (08:48)
[2020-07-05] MEDS: SPIRONOLACTONE 25 MG TAB PO SCH (08:48)
[2020-07-05] MEDS: TICAGRELOR 90 MG TAB PO SCH ×2 (08:49→21:16)
[2020-07-05] MEDS: INSULIN DETEMIR (LEVEMIR) 100 UNIT/ML SYR SQ SCH ×2 (08:49→21:16)
--- NOTE | 2020-07-05 10:44 | P.PN ---
Subjective Progress Note Date: 07/05/20 Patient is doing well today. She was up ambulating in the hallway with no difficulty. She denies any chest pain or shortness of breath. She is scheduled for left heart catheterization tomorrow. Objective - Vital Signs Vital signs: Vital Signs Temp 97.6 F 07/05/20 08:40 Pulse 68 07/05/20 08:40 Resp 18 07/05/20 08:40 BP 121/64 07/05/20 08:40 Pulse Ox 95 07/05/20 08:40 Intake & Output 07/04/20 07/05/20 07/05/20 18:59 06:59 18:59 Intake Total 720 120 Output Total 400 Balance 320 120 Intake: Oral 720 120 Output: Urine 400 Other: Voiding Method Toilet # Voids 1 - Exam General: The patient is awake and alert, in no distress Eye: there is normal conjunctiva bilaterally. Neck: The neck is supple, there is no JVD. Cardiovascular: Normal S1-S2, no S3-S4, no murmurs. Respiratory: Lungs clear to auscultation bilaterally Gastrointestinal: Abdomen is soft, nontender Musculoskeletal: There is no pedal edema. Neurological:. Speech is normal. Skin: Skin is warm and dry - Labs CBC & Chem 7: 07/02/20 10:11 07/03/20 04:01 Labs: Abnormal Lab Results - Last 24 Hours (Table) 07/04/20 07/04/20 07/04/20 Range/Units 11:53 17:03 20:25 POC Glucose (mg/dL) 199 H 229 H 380 H (75-99) mg/dL 07/05/20 Range/Units 06:54 POC Glucose (mg/dL) 120 H (75-99) mg/dL Assessment and Plan Assessment: This is a 70-year-old female with very complex past medical history noted below significant for coronary artery disease with prior stent placement that pre sented to the emergency room with chest pain. 1. Chest pain: ACS ruled out. 12-lead EKG in the ER showed no acute ischemic changes. Troponin negative 3 sets. Patient has been chest pain-free since admission. She was able to get up and ambulate to the bathroom with no difficulty. She was seen and evaluated by cardiology. They recommended left heart cath tomorrow 2. Coronary artery disease with prior RCA stent placement, on dual antiplatelet therapy. Most recent heart catheterization in November 2019 with mid RCA stent placement 3. Type 2 diabetes, resume home medication 4. Chronic medical problems: Essential hypertension, hyperlipidemia I would order repeat lab work for tomorrow.
[2020-07-05 11:53] LABS: Glucose,Whole Blood 142 mg/dL (75-99)
--- NOTE | 2020-07-05 12:02 | P.PN ---
Subjective Progress Note Date: 07/05/20 The patient is a 70-year-old female with past medical history of diabetes mellitus, hypertension, and chronic kidney disease, who follows with Dr. Avery in the office. She has no coronary artery disease and underwent stenting of RCA in November 2019. She was also known to have intermediate lesion in her left circumflex, however FFR became nonischemic at that time. She states her chest discomfort has resolved with nitro paste. She states she's had no recurrence of symptoms. She denies any shortness of breath, orthopnea, dizziness, or lightheadedness. GENERAL: Well-appearing, well-nourished and in no acute distress. NECK: Supple without JVD or thyromegaly. LUNGS: Breath sounds clear to auscultation bilaterally. Respiration equal and unlabored. No wheezes, rales or rhonchi. HEART: Regular rate and rhythm without rubs or gallops. S1 and S2 heard. Systolic murmur EXTREMITIES: Normal range of motion, no edema. No clubbing or cyanosis. Peripheral pulses intact and strong. VITALS: Blood pressure 121/64, SpO2 95% on room air, pulse rate 68, respiratory rate 18, temperature 97.6F TELEMETRY: Sinus rhythm with brief runs of bigeminy overnight. Occasional isolated PVCs. IMPRESSION: Coronary artery disease, history of intermediate lesion in her left circumflex which was nonischemic by FFR in November 2019 Recurrent chest discomfort, relieved with nitroglycerin, concerns for progression of coronary artery disease Hypertension, controlled on current regimen Dyslipidemia History of CVA Diabetes mellitus PLAN: Encourage ambulation to assess for exertional symptoms NPO after midnight Left heart cath with Dr. [place] tomorrow The patient has been seen and evaluated. Plan of care has been reviewed and agreed upon by Dr Gambino. Objective - Vital Signs Vital signs: Vital Signs Temp 97.6 F 07/05/20 08:40 Pulse 68 07/05/20 08:40 Resp 18 07/05/20 08:40 BP 121/64 07/05/20 08:40 Pulse Ox 95 07/05/20 08:40 Intake & Output 07/04/20 07/05/20 07/05/20 18:59 06:59 18:59 Intake Total 720 120 Output Total 400 Balance 320 120 Intake: Oral 720 120 Output: Urine 400 Other: Voiding Method Toilet # Voids 1 - Labs CBC & Chem 7: 07/02/20 10:11 07/03/20 04:01 Labs: Abnormal Lab Results - Last 24 Hours (Table) 07/04/20 07/04/20 07/05/20 Range/Units 17:03 20:25 06:54 POC Glucose (mg/dL) 229 H 380 H 120 H (75-99) mg/dL 07/05/20 Range/Units 11:52 POC Glucose (mg/dL) 142 H (75-99) mg/dL
[2020-07-05 16:20] LABS: Glucose,Whole Blood 175 mg/dL (75-99)
[2020-07-05 20:24] LABS: Glucose,Whole Blood 251 mg/dL (75-99)
[2020-07-05] MEDS: ATORVASTATIN 80 MG TAB PO SCH (21:15)
[2020-07-05] MEDS: SODIUM CHLORIDE 0.9% 1,000 ML IV SCH (21:20)
[2020-07-06] MEDS: NITROGLYCERIN OINT 1 INCH/GM PACKET TOPICAL SCH ×4 (00:34→17:07)
[2020-07-06] MEDS ORDERED: ASPIRIN 325 MG TAB PO STA (06:08)
[2020-07-06 06:12] LABS: Glucose,Whole Blood 122 mg/dL (75-99)
[2020-07-06] MEDS: ASPIRIN 81 MG PO SCH (06:41)
[2020-07-06] MEDS: INSULIN ASPART (NovoLOG) 100 UNIT/ML VIAL SQ SCH ×5 (06:41→20:52)
[2020-07-06] MEDS: SPIRONOLACTONE 25 MG TAB PO SCH (06:41)
[2020-07-06] MEDS: FUROSEMIDE 20 MG TAB PO SCH (06:41)
[2020-07-06] MEDS: INSULIN DETEMIR (LEVEMIR) 100 UNIT/ML SYR SQ SCH ×2 (06:41→20:53)
[2020-07-06] MEDS: lisinopriL 10 MG TAB PO SCH (06:47)
[2020-07-06] MEDS: TICAGRELOR 90 MG TAB PO SCH ×2 (06:47→20:54)
[2020-07-06] MEDS ORDERED: HEPARIN SODIUM,PORCINE 10,000 UNIT in SODIUM CHLORIDE 0.9% 1,000 ML IRRIGATION PRN (07:00)
[2020-07-06] MEDS ORDERED: HEPARIN SODIUM,PORCINE 2,500 UNIT in SODIUM CHLORIDE 0.9% 250 ML IRRIGATION PRN (07:00)
[2020-07-06 07:40] LABS: Potassium 4.4 mmol/L (3.5-5.1)
[2020-07-06 07:41] LABS: African American GFR (CKD) >90 (>60 ml/min/1.73 sqM); Anion Gap 8 mmol/L; Blood Urea Nitrogen 29 mg/dL (7-17); Calcium 10.6 mg/dL (8.4-10.2); Carbon Dioxide 25 mmol/L (22-30); Chloride 106 mmol/L (98-107); Glucose 123 mg/dL (74-99); Non-African American GFR(CKD) >90 (>60 ml/min/1.73 sqM); Sodium 139 mmol/L (137-145)
[2020-07-06 07:52] LABS: Basophils % (A) 0 %; Eosinophils # (A) 0.1 k/uL (0-0.7); Eosinophils % (A) 1 %; HCT 47.4 % (34.0-46.0); HGB 16.2 gm/dL (11.4-16.0); Lymphocytes # (A) 2.4 k/uL (1.0-4.8); Lymphocytes % (A) 27 %; MCH 29.8 pg (25.0-35.0); MCHC 34.1 g/dL (31.0-37.0); MCV 87.3 fL (80.0-100.0); Mean Platelet Volume 7.2; Monocytes # (A) 0.6 k/uL (0-1.0); Monocytes % (A) 6 %; Neutrophils # (A) 5.8 k/uL (1.3-7.7); Neutrophils % (A) 64 %; Platelet Count 233 k/uL (150-450); RBC 5.43 m/uL (3.80-5.40); RDW 12.6 % (11.5-15.5)
[2020-07-06] MEDS: METOPROLOL TARTRATE 25 MG TAB PO SCH ×2 (07:58→20:53)
[2020-07-06] MEDS ORDERED: LIDOCAINE 1% INJ 10MG/ML (20 ML MDV) ONE (11:38)
[2020-07-06] MEDS ORDERED: VERAPAMIL 2.5 MG/ML 2 ML AMP ONE (11:39)
[2020-07-06] MEDS ORDERED: IV FLUID CONTINUATION 1,000 ML IV ONE (11:56)
[2020-07-06] MEDS ORDERED: MIDAZOLAM 2 MG/2 ML VIAL IV ONE (11:57)
[2020-07-06] MEDS ORDERED: LIDOCAINE 1% INJ 10MG/ML (20 ML MDV) SQ ONE (11:59)
[2020-07-06] MEDS ORDERED: VERAPAMIL SYRINGE (5 MG/10 ML) INTRAARTER ONE (12:02)
[2020-07-06] MEDS ORDERED: SODIUM CHLORIDE 0.9% 1,000 ML IV ONE (12:06)
[2020-07-06] MEDS: NITROGLYCERIN 1000MCG/10ML SYRINGE INTRACORON ONE ×2 (12:08→12:44)
[2020-07-06] MEDS ORDERED: IOPAMIDOL-370 125ML BTL INJ ONE (12:35)
[2020-07-06] MEDS ORDERED: IOPAMIDOL-370 100ML BTL INJ ONE (12:47)
[2020-07-06] MEDS ORDERED: RX INFO: IV CONTRAST WAS GIVEN 1 EACH MISC MISCELLANE PRN (12:54)
--- NOTE | 2020-07-06 13:19 | P.PN ---
Subjective Progress Note Date: 07/06/20 Patient is doing well today. She denies any chest pain or shortness of breath. She is scheduled for left heart catheterization today Objective - Vital Signs Vital signs: Vital Signs Temp 97.8 F 07/06/20 10:46 Pulse 62 07/06/20 10:46 Resp 18 07/06/20 10:46 BP 126/70 07/06/20 10:46 Pulse Ox 97 07/06/20 10:46 Intake & Output 07/05/20 07/06/20 07/06/20 18:59 06:59 18:59 Intake Total 360 200 Balance 360 200 Weight 91.7 kg Intake: IV 200 Oral 360 0 Other: Voiding Method Toilet Toilet # Voids 4 2 - Exam General: The patient is awake and alert, in no distress Eye: there is normal conjunctiva bilaterally. Neck: The neck is supple, there is no JVD. Cardiovascular: Normal S1-S2, no S3-S4, no murmurs. Respiratory: Lungs clear to auscultation bilaterally Gastrointestinal: Abdomen is soft, nontender Musculoskeletal: There is no pedal edema. Neurological:. Speech is normal. Skin: Skin is warm and dry - Labs CBC & Chem 7: 07/06/20 06:56 07/06/20 06:56 Labs: Abnormal Lab Results - Last 24 Hours (Table) 07/05/20 07/05/20 07/06/20 Range/Units 16:19 20:13 06:02 RBC (3.80-5.40) m/uL Hgb (11.4-16.0) gm/dL Hct (34.0-46.0) % BUN (7-17) mg/dL Glucose (74-99) mg/dL POC Glucose (mg/dL) 175 H 251 H 122 H (75-99) mg/dL Calcium (8.4-10.2) mg/dL 07/06/20 07/06/20 Range/Units 06:56 06:56 RBC 5.43 H (3.80-5.40) m/uL Hgb 16.2 H (11.4-16.0) gm/dL Hct 47.4 H (34.0-46.0) % BUN 29 H (7-17) mg/dL Glucose 123 H (74-99) mg/dL POC Glucose (mg/dL) (75-99) mg/dL Calcium 10.6 H (8.4-10.2) mg/dL Assessment and Plan Assessment: This is a 70-year-old female with very complex past medical history noted below significant for coronary artery disease with prior stent placement that p resented to the emergency room with chest pain. 1. Chest pain: ACS ruled out. 12-lead EKG in the ER showed no acute ischemic changes. Troponin negative 3 sets. Patient has been chest pain-free since admission. She was able to get up and ambulate to the bathroom with no difficulty. She was seen and evaluated by cardiology. They recommended left heart cath today 2. Coronary artery disease with prior RCA stent placement, on dual antiplatelet therapy. Most recent heart catheterization in November 2019 with mid RCA stent placement 3. Type 2 diabetes, resume home medication 4. Chronic medical problems: Essential hypertension, hyperlipidemia I would order repeat lab work for tomorrow.
[2020-07-06 13:41] LABS: Glucose,Whole Blood 112 mg/dL (75-99)
[2020-07-06] MEDS: SODIUM CHLORIDE 0.9% 1,000 ML IV SCH ×3 (13:43→20:50)
[2020-07-06 17:12] LABS: Glucose,Whole Blood 158 mg/dL (75-99)
[2020-07-06 19:53] LABS: Glucose,Whole Blood 183 mg/dL (75-99)
--- NOTE | 2020-07-06 20:29 | CC ---
CARDIAC CATHETERIZATION REPORT DATE OF SERVICE: July 06, 2020 PERFORMING PHYSICIAN: Asad Cuba MD. PROCEDURE PERFORMED: 1. Selective right and left coronary angiogram. 2. Left heart catheterization. 3. Attempted balloon angioplasty of the distal right coronary artery. INDICATIONS: This is a 70-year-old female patient with coronary artery disease and prior stenting of the LAD and RCA who presented to the hospital with chest discomfort. The chest discomfort was concerning for angina. Because of that, a heart catheterization was advised. APPROACH: Right radial artery. COMPLICATION: None. LEVEL OF SEDATION: Moderate with sedation length of 45 minutes. PROCEDURE DESCRIPTION: After obtaining informed consent, the patient was brought to the cardiac feed mill lab technician. The right radial artery was cannulated using micropuncture technique. The micropuncture wire passed easily. Then, I placed a 6-Nepali sheath at the right radial artery. I gave the patient 2 mg of the verapamil IA and 10,000 units of heparin IV. I did selective right and left coronary angiogram performed using JR4 and JL3.5 catheters. After that I did left heart catheterization using the JR4 catheter which crossed the aortic valve, then I did pullback across the valve. After that, I did balloon angioplasty of the RCA and that was advanced. SELECTIVE CORONARY ANGIOGRAM: RIGHT CORONARY ARTERY: Right coronary artery is a large caliber vessel. It is a dominant vessel. The RCA proximally appeared to be normal. The mid RCA is stented and the stent is patent. The RCA distally appeared to have a tight lesion in the range of 70% and the RCA is extremely tortuous at that segment. LEFT MAIN: The left main is angiographically normal. It bifurcates into LCX and LAD. LCX: The LCX is a large caliber vessel. It is a nondominant vessel. The LCX proximally appeared to be to have mild disease only. It gives rise into the first obtuse marginal branch which is a tortuous vessel with a lesion proximally appeared to be in the range of 60%. The mid left circumflex appeared to have intermediate disease and gives rise into a second OM branch which appeared to have a lesion in the range of 60%. The LAD: The proximal LAD is stented and the stent is patent. The mid LAD appeared to be stented as well and the stent is patent. The LAD distally appeared to have mild disease only. HEMODYNAMICS: The LVEDP was 10 to 12 mmHg without significant gradient across aortic valve. PCI OF THE LAD: Anticoagulation was achieved only using heparin. After that, I did engage the RCA using All right guide. I attempted crossing the wire across the distal RCA to the PDA branch and that was unsuccessful because the PDA turned around 180 degree at that point and I lost the torque on the wire. I attempted using adjunctive use of SuperCross catheter and that was unsuccessful. The procedure was completed without any complication. CONCLUSION: 1. Patent stent in the mid RCA. Severe disease involving the PDA branch of the RCA which is extremely tortuous with 180 degree turn and extremely calcified. Attempted crossing the wire was unsuccessful. 2. Patent stent in the left anterior descending artery proximally as well as in the midportion. 3. Intermediate disease involving the LCX, seems to be unchanged compared to before. 4. Normal LVEDP. POSTPROCEDURE MANAGEMENT: 1. Maximize medical treatment and add oral nitrate and Ranexa to the current medical regimen. 2. If the patient continues to be symptomatic in spite of that, she will be transferred for possible complex PCI of the PDA branch of the RCA. MMODL / IJN: [id number] /
[2020-07-06] MEDS: ATORVASTATIN 80 MG TAB PO SCH (20:51)
[2020-07-06 23:23] VITALS: RESP 16
[2020-07-07] MEDS: NITROGLYCERIN OINT 1 INCH/GM PACKET TOPICAL SCH ×2 (02:31→06:24)
[2020-07-07 06:07] LABS: Glucose,Whole Blood 172 mg/dL (75-99)
[2020-07-07] MEDS: INSULIN ASPART (NovoLOG) 100 UNIT/ML VIAL SQ SCH (06:22)
[2020-07-07 08:29] VITALS: BP 148/66; PULSE 60; TEMP 97.9
[2020-07-07] MEDS: lisinopriL 10 MG TAB PO SCH (08:30)
[2020-07-07] MEDS: ASPIRIN 81 MG PO SCH (08:30)
[2020-07-07] MEDS: SPIRONOLACTONE 25 MG TAB PO SCH (08:30)
[2020-07-07] MEDS: FUROSEMIDE 20 MG TAB PO SCH (08:30)
[2020-07-07] MEDS: METOPROLOL TARTRATE 25 MG TAB PO SCH (08:31)
[2020-07-07] MEDS: TICAGRELOR 90 MG TAB PO SCH (08:31)
[2020-07-07] MEDS: INSULIN DETEMIR (LEVEMIR) 100 UNIT/ML SYR SQ SCH (08:32)
--- NOTE | 2020-07-07 08:53 | PN ---
PROGRESS NOTE Ms. Weber is a 70-year-old female with known history of coronary artery disease status post percutaneous revascularization of the LAD and the RCA by Dr. Cuba, who presented with symptoms of chest discomfort. She underwent cardiac catheterization by Dr. Cuba yesterday, was found to have patent stent and severe stenosis involving the left PLV that was noted in the past without progression. Attempts to advance the wire into that vessel were unsuccessful. She is feeling well this morning. She denies chest pain. Her breathing has been stable. She denies any dizziness or palpitation. Continues to be on aspirin once a day, Lipitor 80 mg daily, Lasix 20 mg daily, insulin, isosorbide mononitrate 30 mg daily, Zestril 10 mg daily, metoprolol tartrate 25 mg twice a day, spironolactone 25 mg daily and Brilinta 90 mg twice a day. PHYSICAL EXAMINATION: Blood pressure 130/70 with a heart rate in 70s. LUNGS: Clear. Heart regular rate and rhythm S1, S2. No S3. No rub. ABDOMEN: Soft, nontender. EXTREMITIES: No edema. Right radial pulse intact. IMPRESSION: 1. Symptoms of chest discomfort with no evidence of myocardial infarction and no progression of disease by cardiac catheterization with significant disease in the distal right coronary artery with no progression. 2. History of hypertension. 3. Hyperlipidemia. 4. Diabetes mellitus. RECOMMENDATIONS: From the cardiac standpoint, she should be able to be discharged home today on her present medical regimen and follow up with Dr. Cuba as an outpatient. Depending on her progress, further recommendation will be made. MMODL / IJN: [id number] /
[2020-07-07] MEDS ORDERED: ISOSORBIDE MONONITRATE ER 30 MG TAB.ER.24H PO SCH (09:00)
[2020-07-07] MEDS ORDERED: RANOLAZINE 500 MG TAB.ER.12H PO SCH (09:00)
[2020-07-07 11:01] VITALS: BMI 34.1
[2020-07-07 11:05] LABS: Basophils % (A) 0 %; Eosinophils # (A) 0.1 k/uL (0-0.7); Eosinophils % (A) 2 %; HCT 45.2 % (34.0-46.0); HGB 15.1 gm/dL (11.4-16.0); Lymphocytes # (A) 1.9 k/uL (1.0-4.8); Lymphocytes % (A) 27 %; MCH 29.6 pg (25.0-35.0); MCHC 33.5 g/dL (31.0-37.0); MCV 88.4 fL (80.0-100.0); Monocytes # (A) 0.4 k/uL (0-1.0); Monocytes % (A) 6 %; Neutrophils # (A) 4.4 k/uL (1.3-7.7); Neutrophils % (A) 64 %; Platelet Count 259 k/uL (150-450); RBC 5.12 m/uL (3.80-5.40); RDW 12.5 % (11.5-15.5); WBC 6.8 k/uL (3.8-10.6)
[2020-07-07 11:16] LABS: African American GFR (CKD) >90 (>60 ml/min/1.73 sqM); Anion Gap 7 mmol/L; Blood Urea Nitrogen 19 mg/dL (7-17); Calcium 10.2 mg/dL (8.4-10.2); Carbon Dioxide 23 mmol/L (22-30); Chloride 108 mmol/L (98-107); Glucose 177 mg/dL (74-99); Non-African American GFR(CKD) >90 (>60 ml/min/1.73 sqM); Potassium 4.8 mmol/L (3.5-5.1); Sodium 138 mmol/L (137-145)
[2020-07-07] MEDS ORDERED: MAGNESIUM OXIDE 400 MG TAB PO STA (11:44)
--- NOTE | 2020-07-07 12:20 | P.DS ---
<Devon Humphries - Last Filed: 07/07/20 12:06> Providers Expected date of discharge: 07/07/20 Hospital Course: Discharge Diagnosis: Chest pain, acute coronary event ruled out Coronary artery disease with prior stenting on dual antiplatelet therapy Chronic systolic heart failure with a moderately to severely impaired EF of 30- 35% Hypertension Hyperlipidemia Type 2 insulin-dependent diabetes mellitus Hypomagnesemia Hospital Course: Patient is a 70-year-old female with a past medical history of CAD with previous stenting, hypertension, hyperlipidemia, chronic systolic heart failure with a moderately to severely impaired ejection fraction of 30-35%. She presented to the hospital on 07/02/20 with a chief complaint of left-sided chest pain radiating to her back and left upper chest. EKG was completed showing sinus rhythm at 64 bpm with frequent PVCs with bigeminy pattern, no signs of T-wave or ST abnormality showing no signs of acute ischemia. Troponins trended and negative at < 0.012 x 6 draws. Patient was seen and fully evaluated by cardiology. She underwent a Cardiac cath on 07/06/20 revealing a patent stent in the left anterior descending artery proximally as well as the midportion, and mid RCA with reports of severe disease involving the PDA branch of the RCA which was reported to be extremely torturous with 180 turn and extremely calcified and an attempt was made at crossing the PCI wire and was unsuccessful, cath report also states intermediate disease involving the left circumflex reported to be unchanged compared to previous cardiac cath. Cardiology recommending to maximize medical treatment and add oral nitrates (Imdur) and Ranexa to the current medication regimen. Patient cleared by cardiology for discharge home. Again she is being started on Imdur and Ranexa and Lopressor was decreased to 25 mg twice daily. Patient instructed to follow-up with her PCP regarding possible adjustments of her home insulin regimen to obtain tighter glucose control. Pt also instructed to follow up with cardiology in 10 days for further evaluation and to return to the nearest emergency department immediately if she again experiences any chest pain or discomfort. Patient verbalized instructions and is stable for discharge home at this time. Patient seen and examined at bedside. Vital signs reviewed and stable. General: Nontoxic, no distress and appears stated age. Derm: Skin warm and dry, normal coloration for ethnicity. Dressing to right wrist intact, no hematoma no signs of bleeding. Head: Atraumatic, normocephalic and symmetric. Eyes: EOMs intact, no lid lag, and anicteric sclera Mouth: no lip lesions, mucus membranes moist Cardiovascular: regular rate and rhythm with normal S1S2, no murmur, positive posterior tibial pulses bilaterally, and cap refill < 2 seconds. Lungs: Respirations even, regular, and unlabored on room air. Lungs CTA bilaterally, no rhonchi, no rales, no wheezing, and no accessory muscle usage. Abdominal: soft, nontender to palpation, no guarding, no appreciable organomegaly Ext: ROM intact. No gross muscle atrophy, no edema, no contractures Neuro: Speech clear, face symmetrical and CN II-XII grossly intact with no noted focal neuro deficits Psych: Alert and oriented to person, place, time, and situation. Appropriate and pleasant affect. A total of 45 minutes of time were spent preparing this complex discharge summar y. Patient Condition at Discharge: Stable Plan - Discharge Summary Discharge Rx Participant: No New Discharge Prescriptions: New Isosorbide Mononitrate ER [Imdur] 30 mg PO DAILY 30 Days #30 tab.er.24h Ranolazine [Ranexa] 500 mg PO Q12HR 30 Days #60 tab.er.12h Continue Repaglinide [Prandin] 1 mg PO AC-TID Insulin Glargine,Hum.rec.anlog [Lantus Solostar] 35 unit SQ BID Spironolactone [Aldactone] 25 mg PO DAILY #30 tab Aspirin 81 mg PO DAILY #30 chew Ticagrelor [Brilinta] 90 mg PO BID #60 tab Atorvastatin [Lipitor] 80 mg PO HS #30 tab Nitroglycerin Sl Tabs [Nitrostat] 0.4 mg SUBLINGUAL Q5M PRN #14 tab PRN Reason: Chest Pain lisinopriL [Zestril] 10 mg PO DAILY #30 tab Insulin Aspart [NovoLOG Flexpen] 10 units SQ HS Clindamycin HCl 300 mg PO Q12HR Furosemide [Lasix] 20 mg PO DAILY Changed Metoprolol Tartrate [Lopressor] 25 mg PO BID #90 tab Discharge Medication List Insulin Glargine,Hum.rec.anlog [Lantus Solostar] 35 unit SQ BID 10/30/19 [History] Repaglinide [Prandin] 1 mg PO AC-TID 10/30/19 [History] Aspirin 81 mg PO DAILY #30 chew 11/02/19 [Rx] Atorvastatin [Lipitor] 80 mg PO HS #30 tab 11/02/19 [Rx] Nitroglycerin Sl Tabs [Nitrostat] 0.4 mg SUBLINGUAL Q5M PRN #14 tab 11/02/19 [Rx] Spironolactone [Aldactone] 25 mg PO DAILY #30 tab 11/02/19 [Rx] Ticagrelor [Brilinta] 90 mg PO BID #60 tab 11/02/19 [Rx] lisinopriL [Zestril] 10 mg PO DAILY #30 tab 11/02/19 [Rx] Clindamycin HCl 300 mg PO Q12HR 07/02/20 [History] Furosemide [Lasix] 20 mg PO DAILY 07/02/20 [History] Insulin Aspart [NovoLOG Flexpen] 10 units SQ HS 07/02/20 [History] Isosorbide Mononitrate ER [Imdur] 30 mg PO DAILY 30 Days #30 tab.er.24h 07/07/20 [Rx] Metoprolol Tartrate [Lopressor] 25 mg PO BID #90 tab 07/07/20 [Rx] Ranolazine [Ranexa] 500 mg PO Q12HR 30 Days #60 tab.er.12h 07/07/20 [Rx] Follow up Appointment(s)/Referral(s): [facility] [Provider Group] - 07/19/20 3:45 pm (To see Hamida) Pastor Blackman MD [Primary Care Provider] - 07/15/20 10:00 am (To see Julia DOUGHERTY) Patient Instructions/Handouts: *Surgery [facility] - After Heart Catheterization - Glove Cuffer Instructions, Chest Pain (DC), Heart Healthy Diet (DC) Activity/Diet/Wound Care/Special Instructions: Activity: As tolerated. Diet: Heart healthy and carb consistent diet Special Instructions: It is very important to take her medications directly as prescribed without missing any doses. You will need to follow up with your PCP in 2 days as we dis cuss for further management and changes to your current insulin regimen. Please monitor glucose levels twice daily keeping a record to take with you to your next doctor's appointment. You will need to follow up outpatient with Dr. Skaf as scheduled. It is important to return to the nearest emergency department immediately if you again began to experience any chest pain or tightness. Discharge Disposition: HOME SELF-CARE <Zoë Varela - Last Filed: 07/07/20 18:15> Providers Date of admission: 07/02/20 13:20 Attending physician: Ronny Luna Consults: 07/02/20 13:20 Consult Physician Urgent Consulting Provider: Asad Cuba Consult Reason/Comments: Chest pain, bigeminy, hypomagnesemia Do you want consulting provider notified?: Yes Primary care physician: Pastor Blackman MD Hospital Course: Patient seen and examined independently. Patient was also seen by Devon Humphries NP and case was discussed. I am in agreement with subjective, physical exam, assessment and plan as written above and amended below. Patient seen and examined. All questions were answered regarding new medications. We had a long discussion regarding improved control of her diabetes is associated only additional modifiable risk factor to prevent her coronary artery disease from worsening. Patient understands and will be following up with Julia Connell on July 15. She reports she has seen endocrinology in the past but felt as though they were not listening to her and the medications were difficult to tolerate an expensive General: non toxic, no distress, appears at stated age Derm: warm, dry Head: atraumatic, normocephalic, symmetric Eyes: EOMI, no lid lag, anicteric sclera Mouth: no lip lesion, mucus membranes moist Cardiovascular: S1S2 reg, no murmur, positive posterior tibial pulse bilateral, Lungs: CTA bilateral, no rhonchi, no rales , no accessory muscle use Abdominal: soft, nontender to palpation, no guarding, no appreciable organomegaly Ext: no gross muscle atrophy, no edema, no contractures Neuro: CN II-XI grossly intact, no focal neuro deficits Psych: Alert, oriented, appropriate affect
== END 2020-07-07 12:01 | disposition home or self-care (01) | DRG 287 ==
LOC: SUPCPDRO 09:32 → EC 09:32 → 3SCARD 13:20
PROVIDERS: ADMIT Internal Medicine; ATTEND Internal Medicine
PROC: B2111ZZ Fluoroscopy of Multiple Coronary Arteries using Low Osmolar Contrast (ICD-10-PCS; 2020-07-06)
PROC: 4A023N7 Measurement of Cardiac Sampling and Pressure, Left Heart, Percutaneous Approach (ICD-10-PCS; principal; 2020-07-06 09:00)
DX: I25.110 Atherosclerotic heart disease of native coronary artery with unstable angina pectoris (principal); I50.22 Chronic systolic (congestive) heart failure; I13.0 Hypertensive heart and chronic kidney disease with heart failure and stage 1 through stage 4 chronic kidney disease, or unspecified chronic kidney disease; Z95.5 Presence of coronary angioplasty implant and graft; Z79.4 Long term (current) use of insulin; Z79.82 Long term (current) use of aspirin; Z79.02 Long term (current) use of antithrombotics/antiplatelets; E11.22 Type 2 diabetes mellitus with diabetic chronic kidney disease; Z86.73 Personal history of transient ischemic attack (TIA), and cerebral infarction without residual deficits; Z20.822 Contact with and (suspected) exposure to COVID-19; E78.5 Hyperlipidemia, unspecified; R00.8 Other abnormalities of heart beat; Z82.49 Family history of ischemic heart disease and other diseases of the circulatory system; I49.3 Ventricular premature depolarization; E83.42 Hypomagnesemia; N18.9 Chronic kidney disease, unspecified; Z90.710 Acquired absence of both cervix and uterus
CPT/HCPCS: 36415; 71046; 80048; 80053; 80061; 82550; 83690; 83735; 83880; 84484; 85025; 85379; 85610; 85730; 87635; 93005; 93458; 99291

== ENCOUNTER 2020-08-18 18:02 | Emergency (ER) | payer MEDICARE ==
[2020-08-18 18:09] VITALS: TEMP 97.9
[2020-08-18] MEDS ORDERED: ASPIRIN 81 MG PO STA (18:40)
[2020-08-18 18:54] LABS: Basophils % (A) 0 %; Eosinophils # (A) 0.1 k/uL (0-0.7); Eosinophils % (A) 2 %; HCT 42.5 % (34.0-46.0); HGB 14.8 gm/dL (11.4-16.0); Lymphocytes # (A) 2.7 k/uL (1.0-4.8); Lymphocytes % (A) 38 %; MCH 30.2 pg (25.0-35.0); MCHC 34.9 g/dL (31.0-37.0); MCV 86.4 fL (80.0-100.0); Mean Platelet Volume 6.9; Monocytes # (A) 0.4 k/uL (0-1.0); Monocytes % (A) 6 %; Neutrophils # (A) 3.7 k/uL (1.3-7.7); Neutrophils % (A) 53 %; Platelet Count 237 k/uL (150-450); RBC 4.92 m/uL (3.80-5.40); RDW 12.7 % (11.5-15.5)
[2020-08-18 18:58] LABS: ALT 29 U/L (4-34); AST 29 U/L (14-36); African American GFR (CKD) >90 (>60 ml/min/1.73 sqM); Albumin 3.8 g/dL (3.5-5.0); Alkaline Phosphatase 147 U/L (38-126); Anion Gap 8 mmol/L; Blood Urea Nitrogen 25 mg/dL (7-17); Carbon Dioxide 24 mmol/L (22-30); Chloride 105 mmol/L (98-107); Glucose 253 mg/dL (74-99); Magnesium 1.5 mg/dL (1.6-2.3); Non-African American GFR(CKD) >90 (>60 ml/min/1.73 sqM); Potassium 4.2 mmol/L (3.5-5.1); Sodium 137 mmol/L (137-145); Total Bilirubin 1.8 mg/dL (0.2-1.3); Total Protein 6.6 g/dL (6.3-8.2)
[2020-08-18 19:22] LABS: INR 0.9 (<1.2); Prothrombin Time 10.1 sec (9.0-12.0)
[2020-08-18 19:30] LABS: Partial Thromboplastin Time 20.7 sec (22.0-30.0)
--- NOTE | 2020-08-18 19:47 | XR ---
EXAMINATION TYPE: XR chest 1V portable DATE OF EXAM: 08/18/2020 CLINICAL HISTORY: chest pain. TECHNIQUE: Portable frontal view of the chest. COMPARISON: 07/02/2020 FINDINGS: Calcified coronary artery disease versus coronary artery stents. The cardiomediastinal jovon houette is mildly enlarged and unchanged. Pulmonary vasculature is prominent centrally which may repr esent pulmonary arterial hypertension. Increased interstitial coarsening. Right infrahilar triangular opacity likely related to overlying breast soft tissue. No pleural effusion. No pneumothorax seen. Dextrocurvature of the thoracic spine. IMPRESSION: 1. Redemonstrated cardiomegaly. 2. Interstitial coarsening may be related to chronic interstitial change versus interstitial edema.
--- NOTE | 2020-08-18 19:52 | ED ---
General Adult HPI - General Chief complaint: Recheck/Abnormal Lab/Rx Stated complaint: dizziness Time Seen by Provider: 08/18/20 18:15 Source: patient Mode of arrival: wheelchair Limitations: no limitations - History of Present Illness Initial comments: Patient is a 70-year-old female with past medical history remarkable for multiple cardiac stents, renal disease, hypertension, CAD, prior TIA, diabetes who presents emergency Department complaining of hypotension. She states she has been taking her blood pressure home with a wrist blood pressure monitor and she states she usually are slightly above her shoulders when she takes. She has gotten systolic blood pressures in the 80s to 90s over the last few days. She called her PCP who recommended that she stop taking her antihypertensives which she has. She is only taking Lasix currently. She states that this reoccurred today, and with that she felt somewhat lightheaded. She decided to come to the emergency department for evaluation. She denies any chest pain, shortness of breath, abdominal pain, nausea, vomiting. She denies any headache, blurry vision. She does endorse mild generalized weakness. She denies any sensory deficits. She denies any blurry vision. She has no fevers, chills, sick contacts. She otherwise has no acute complaints at this time. - Related Data Home Medications Medication Instructions Recorded Confirmed Insulin Glargine,Hum.rec.anlog 40 unit SQ BID 10/30/19 08/18/20 [Lantus Solostar] Insulin Aspart [NovoLOG Flexpen] 10 units SQ W/SUPPER 07/02/20 08/18/20 Furosemide [Lasix] 20 mg PO DAILY 08/18/20 08/18/20 Ranolazine [Ranexa] 500 mg PO BID 08/18/20 08/18/20 Previous Rx's Medication Instructions Recorded Aspirin 81 mg PO DAILY #30 chew 11/02/19 Atorvastatin [Lipitor] 80 mg PO HS #30 tab 11/02/19 Spironolactone [Aldactone] 25 mg PO DAILY #30 tab 11/02/19 Ticagrelor [Brilinta] 90 mg PO BID #60 tab 11/02/19 lisinopriL [Zestril] 10 mg PO DAILY #30 tab 11/02/19 Isosorbide Mononitrate ER [Imdur] 30 mg PO DAILY 30 Days #30 07/07/20 tab.er.24h Metoprolol Tartrate [Lopressor] 25 mg PO BID #90 tab 07/07/20 Allergies Allergy/AdvReac Type Severity Reaction Status Date / Time No Known Allergies Allergy Verified 08/18/20 19:26 Review of Systems ROS Statement: Those systems with pertinent positive or pertinent negative responses have been documented in the HPI. Review of Systems: CONST: Endorses lightheadedness EYES: Denies blurry vision ENT: Denies nasal congestion C/V: Denies Chest pain RESP: Denies shortness of breath GI: Denies abdominal pain : Denies dysuria SKIN: Denies rash. MSK: Denies joint pain. NEURO: Denies headache ROS Other: All systems not noted in ROS Statement are negative. 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 History of Any Multi-Drug Resistant Organisms: None Reported Past Surgical History: Section, Cholecystectomy, Heart Catheterization With Stent, Hysterectomy, Joint Replacement, Orthopedic Surgery Additional Past Surgical History / Comment(s): 10/30/19 PCI with stents LAD/aspiration thrombectomy, bilateral knee arthroscopies, L shoulder rotator cuff repair, R shoulder frozen shoulder/manipulation and fractured, exploratory laparoscopy with endometrial scraping, R percutaneous nephrostolithotomy twice for stones, colonoscopies/benign polypectomies, esophageal dilations, L eye cataract removal/lens implant. 3 stents placed 10-30-2019 Past Anesthesia/Blood Transfusion Reactions: No Reported Reaction Additional Past Anesthesia/Blood Transfusion Reaction / Comment(s): Pt has received blood in past after hysterectomy without reaction Date of Last Stent Placement:: 10/30/2019 Past Psychological History: No Psychological Hx Reported Smoking Status: Never smoker Past Alcohol Use History: None Reported Past Drug Use History: None Reported - Past Family History Mother History Unknown: Yes Family Medical History: No Reported History Additional Family Medical History / Comment(s): Mother at the age of 38 yrs but pt states she never knew cause. Father Family Medical History: Myocardial Infarction (PR) Additional Family Medical History / Comment(s): Father had his first PR at the age of 65 yrs, then of a PR at the age of 83 yrs. General Exam - General Exam Comments Initial Comments: General: Appears in no acute distress. HEAD: Normal with no signs of head trauma. EYES: PERRLA, EOMI, conjunctiva normal, no discharge. Pupils are 3 mm and equal bilaterally. ENT: Hearing grossly intact, normal oropharynx. RESPIRATORY: Clear breath sounds bilaterally. No wheezes, rales, or rhonchi. C/V: Regular rate and rhythm. S1 and S2 auscultated, no edema, peripheral pulses 2+ and intact throughout ABD: Abd is soft, nontender, nondistended EXT: Normal range of motion, no obvious deformity SKIN: No rashes or lesions observed on exposed skin. NEURO: Alert and oriented x 4. Cranial nerves II-XII intact. No focal sensory or strength deficits. Cerebellar function is intact as evidenced by normal finger-nose testing. Patient is able to ambulate without difficulty. Limitations: no limitations Course Vital Signs 08/18/20 08/18/20 08/18/20 18:07 19:08 20:01 Temperature 97.9 F Pulse Rate 100 78 87 Respiratory 16 16 20 Rate Blood Pressure 138/80 132/70 125/73 O2 Sat by Pulse 98 100 96 Oximetry Medical Decision Making - Medical Decision Making Based on the patient's presentation and physical exam, she has not had any episodes of hypotension here in the emergency department. Blood pressure appears to be within normal limits. We will continue to monitor her on continuous cardiac monitoring, and with her history of multiple cardiac stents, we will obtain a cardiac workup including troponins, describes, EKG, chest x- ray. She'll be administered an aspirin. She states that her lightheadedness has resolved by the end of her conversation. She is feeling improved already. Therefore we will monitor her blood pressure machines here in the department and reevaluate her after laboratory studies. Patient's EKG shows no acute ischemic changes. Chest x-ray shows no acute cardiopulmonary process. Laboratory studies are remarkable for a hyperglycemia of 253. She has hypomagnesemia 0.5 which is replenished. Patient's troponins negative. Metabolic laboratory studies unremarkable. On reevaluation, patient is feeling improved. Her blood pressures have remained stable, ranging from 125 systolic to 138 systolic. Mean Arterial blood pressures have ranged from 90-99. She currently is asymptomatic. I believe it is safer to be discharged home with close follow-up with her PCP and she was in agreement with the plan. She is able to ambulate without difficulty. Patient remained normotensive throughout her stay in the ED. I instructed the patient to follow up with their PCP in the next 3 days. I explained that the patient should return to the emergency department if they experience any worsening symptoms. Strict return precautions were discussed with the patient. The patient expressed understanding of these instructions. I answered all questions that the patient had. The patient was discharged home in improved condition with their prescriptions and follow up information. - Lab Data Result diagrams: 08/18/20 18:43 08/18/20 18:43 Lab Results 08/18/20 08/18/20 08/18/20 Range/Units 18:43 18:43 18:43 WBC 7.0 (3.8-10.6) k/uL RBC 4.92 (3.80-5.40) m/uL Hgb 14.8 (11.4-16.0) gm/dL Hct 42.5 (34.0-46.0) % MCV 86.4 (80.0-100.0) fL MCH 30.2 (25.0-35.0) pg MCHC 34.9 (31.0-37.0) g/dL RDW 12.7 (11.5-15.5) % Plt Count 237 (150-450) k/uL MPV 6.9 Neutrophils % 53 % Lymphocytes % 38 % Monocytes % 6 % Eosinophils % 2 % Basophils % 0 % Neutrophils # 3.7 (1.3-7.7) k/uL Lymphocytes # 2.7 (1.0-4.8) k/uL Monocytes # 0.4 (0-1.0) k/uL Eosinophils # 0.1 (0-0.7) k/uL Basophils # 0.0 (0-0.2) k/uL PT 10.1 (9.0-12.0) sec INR 0.9 (<1.2) APTT 20.7 L (22.0-30.0) sec Sodium 137 (137-145) mmol/L Potassium 4.2 (3.5-5.1) mmol/L Chloride 105 (98-107) mmol/L Carbon Dioxide 24 (22-30) mmol/L Anion Gap 8 mmol/L BUN 25 H (7-17) mg/dL Creatinine 0.58 (0.52-1.04) mg/dL Est GFR (CKD-EPI)AfAm >90 (>60 ml/min/1.73 sqM) Est GFR (CKD-EPI)NonAf >90 (>60 ml/min/1.73 sqM) Glucose 253 H (74-99) mg/dL Calcium 10.0 (8.4-10.2) mg/dL Magnesium 1.5 L (1.6-2.3) mg/dL Total Bilirubin 1.8 H (0.2-1.3) mg/dL AST 29 (14-36) U/L ALT 29 (4-34) U/L Alkaline Phosphatase 147 H (38-126) U/L Troponin I (0.000-0.034) ng/mL Total Protein 6.6 (6.3-8.2) g/dL Albumin 3.8 (3.5-5.0) g/dL 08/18/20 Range/Units 18:43 WBC (3.8-10.6) k/uL RBC (3.80-5.40) m/uL Hgb (11.4-16.0) gm/dL Hct (34.0-46.0) % MCV (80.0-100.0) fL MCH (25.0-35.0) pg MCHC (31.0-37.0) g/dL RDW (11.5-15.5) % Plt Count (150-450) k/uL MPV Neutrophils % % Lymphocytes % % Monocytes % % Eosinophils % % Basophils % % Neutrophils # (1.3-7.7) k/uL Lymphocytes # (1.0-4.8) k/uL Monocytes # (0-1.0) k/uL Eosinophils # (0-0.7) k/uL Basophils # (0-0.2) k/uL PT (9.0-12.0) sec INR (<1.2) APTT (22.0-30.0) sec Sodium (137-145) mmol/L Potassium (3.5-5.1) mmol/L Chloride (98-107) mmol/L Carbon Dioxide (22-30) mmol/L Anion Gap mmol/L BUN (7-17) mg/dL Creatinine (0.52-1.04) mg/dL Est GFR (CKD-EPI)AfAm (>60 ml/min/1.73 sqM) Est GFR (CKD-EPI)NonAf (>60 ml/min/1.73 sqM) Glucose (74-99) mg/dL Calcium (8.4-10.2) mg/dL Magnesium (1.6-2.3) mg/dL Total Bilirubin (0.2-1.3) mg/dL AST (14-36) U/L ALT (4-34) U/L Alkaline Phosphatase (38-126) U/L Troponin I <0.012 (0.000-0.034) ng/mL Total Protein (6.3-8.2) g/dL Albumin (3.5-5.0) g/dL - EKG Data -: EKG Interpreted by Me EKG Comments: 12-lead Electrocardiogram Interpretation Note EKG was reviewed and interpreted by myself. 12-lead ECG performed at 1818 is int erpreted by me as revealing normal sinus rhythm at a rate of 94 beats per minute. Left axis deviation. CO intervals 180 ms, QRS duration is 94 ms, QTc is 457 ms.. There were no ST or T wave abnormalities to suggest myocardial ischemia or injury. R wave progression across the precordium was satisfactory. By my interpretation this EKG is non-diagnostic for acute ischemia. Disposition Clinical Impression: Lightheadedness, Hypotension Disposition: HOME SELF-CARE Condition: Good Is patient prescribed a controlled substance at d/c from ED?: No Referrals: Pastor Blackman MD [Primary Care Provider] - 1-2 days Asad Cuba MD [STAFF PHYSICIAN] - 1-2 days
[2020-08-18] MEDS ORDERED: MAGNESIUM OXIDE 400 MG TAB PO STA (19:53)
[2020-08-18 20:02] VITALS: BP 125/73; PULSE 87; RESP 20
== END 2020-08-18 20:13 | disposition home or self-care (01) ==
LOC: EC 18:02
DX: I95.9 Hypotension, unspecified (principal); E11.40 Type 2 diabetes mellitus with diabetic neuropathy, unspecified; I10 Essential (primary) hypertension; I25.10 Atherosclerotic heart disease of native coronary artery without angina pectoris; J45.909 Unspecified asthma, uncomplicated; K21.9 Gastro-esophageal reflux disease without esophagitis; Z79.4 Long term (current) use of insulin; Z79.82 Long term (current) use of aspirin; Z79.899 Other long term (current) drug therapy; Z82.49 Family history of ischemic heart disease and other diseases of the circulatory system; Z86.718 Personal history of other venous thrombosis and embolism; Z86.73 Personal history of transient ischemic attack (TIA), and cerebral infarction without residual deficits; Z95.5 Presence of coronary angioplasty implant and graft; Z90.710 Acquired absence of both cervix and uterus
CPT/HCPCS: 36415; 71045; 80053; 83735; 84484; 85025; 85610; 85730; 93005; 99284

== ENCOUNTER → 2020-10-05 | Outpatient (CLI) | payer MEDICARE ==
--- NOTE | 2020-10-07 10:09 | MM ---
Reason for exam: screening (asymptomatic). Last mammogram was performed 1 year and 1 month ago. History: Patient is postmenopausal. Physical Findings: A clinical breast exam by your physician is recommended on an annual basis and results should be correlated with mammographic findings. MG 3D Screening Mammo W/Cad Bilateral CC and MLO view(s) were taken. Prior study comparison: September 12, 2019, bilateral MG screening mammo w CAD. December 06, 2017, bilateral MG 3d screening mammo w/cad. There are scattered fibroglandular densities. No significant changes when compared with prior studies. ASSESSMENT: Benign, BI-RAD 2 RECOMMENDATION: Routine screening mammogram of both breasts in 1 year.
== END | disposition home or self-care (01) ==
LOC: RADMAMWWP 13:05
PROVIDERS: ATTEND Internal Medicine
DX: Z12.31 Encounter for screening mammogram for malignant neoplasm of breast (principal); Z78.0 Asymptomatic menopausal state
CPT/HCPCS: 77063; 77067

== ENCOUNTER → 2021-02-11 | Outpatient (CLI) | payer SELFPAY ==
[2021-02-11 11:11] LABS: Ionized Calcium 5.8 mg/dL (4.5-5.3)
[2021-02-11 11:43] LABS: Basophils % (A) 1 %; Eosinophils # (A) 0.9 k/uL (0-0.7); Eosinophils % (A) 11 %; HCT 45.6 % (34.0-46.0); HGB 14.4 gm/dL (11.4-16.0); Lymphocytes # (A) 2.6 k/uL (1.0-4.8); Lymphocytes % (A) 33 %; MCH 29.7 pg (25.0-35.0); MCHC 31.7 g/dL (31.0-37.0); MCV 93.7 fL (80.0-100.0); Mean Platelet Volume 7.9; Monocytes # (A) 0.4 k/uL (0-1.0); Monocytes % (A) 5 %; Neutrophils # (A) 3.8 k/uL (1.3-7.7); Neutrophils % (A) 49 %; Platelet Count 222 k/uL (150-450); RBC 4.86 m/uL (3.80-5.40); RDW 12.3 % (11.5-15.5); WBC 7.9 k/uL (3.8-10.6)
--- NOTE | 2021-02-11 13:12 | XR ---
EXAMINATION TYPE: XR chest 2V DATE OF EXAM: 02/11/2021 COMPARISON: Chest x-ray 08/18/2020 HISTORY: E 83.52, abnormal chest x-ray TECHNIQUE: Frontal and lateral views of the chest are obtained. FINDINGS: No significant interval change. Scoliotic curvature, degenerative disc changes are suspect ed in the visualized spine. There is no evident airspace disease, pneumothorax, or pleural effusion. Accentuation in the appearance of the heart is again noted. There are coronary artery calcifications and stent present. Aorta is dense. IMPRESSION: No acute abnormality. Stable cardiomegaly. Coronary artery disease.
[2021-02-11 15:43] LABS: Protein, Total 6.3 g/dL (6.2-8.2)
[2021-02-11 15:46] LABS: Calcium 10.3 mg/dL (8.7-10.3)
[2021-02-14 15:09] LABS: Albumin 3.72 g/dL (3.80-4.90); Gamma Globulin 0.9 g/dL (0.70-1.50)
== END | disposition home or self-care (01) ==
LOC: LABWHC1 09:51
PROVIDERS: ATTEND Internal Medicine
DX: E83.52 Hypercalcemia (principal); I51.7 Cardiomegaly; I25.10 Atherosclerotic heart disease of native coronary artery without angina pectoris
CPT/HCPCS: 36415; 71046; 82306; 82310; 82330; 82652; 83970; 84165; 85025

== ENCOUNTER → 2021-03-04 | Outpatient (CLI) | payer MEDICARE ==
--- NOTE | 2021-03-04 11:42 | CT ---
EXAMINATION TYPE: CT abdomen pelvis wo con DATE OF EXAM: 03/04/2021 COMPARISON: 02/06/2017 HISTORY: 70-year-old female N20.0, Nephrolithiasis CT DLP: 1011 mGycm. Automated exposure control for dose reduction was used. TECHNIQUE: Contiguous axial scanning of the abdomen and pelvis without IV contrast. Coronal and sagit kassy reconstructions performed. FINDINGS: Heart upper limits of normal in size without pericardial effusion. RCA coronary artery calcifications are present. Strandy atelectasis or scarring in the lower lungs. No pleural effusion. Noncontrast appearance of the liver, adrenal glands, kidneys, spleen, and pancreas show no gross abno rmally. No nephrolithiasis or hydronephrosis seen on either side within the kidneys. A small anterior cortica l defect mid to lower pole right kidney is unchanged back to 2018. Mild atherosclerotic calcifications abdominal aorta without aneurysm. No dilated small bowel, free fluid, or free air. No mesenteric or retroperitoneal lymphadenopathy. Some liquid stool within the cecum. High riding cecum. Mild stool throughout the colon. Lower descend ing and sigmoid colonic diverticulosis. Redundant sigmoid colon. No pericolic inflammatory change. Tiny fatty umbilical hernia. A couple dropped surgical clips along the anterior midline likely relati ng to patient's cholecystostomy thickening. Bladder nondistended. Uterus surgically absent. Neither ovary is visualized. Numerous pelvic phleboli th. Facet arthropathy lower lumbar spine. Anterior plate spondylosis the patient in the lower thoracic sp ine. Moderate degenerative disc disease L5-S1. IMPRESSION: 1. No nephrolithiasis or hydronephrosis. 2. Diverticulosis of the lower descending and sigmoid colon. Redundant sigmoid colon. No acute infla mmation seen.
== END | disposition home or self-care (01) ==
LOC: RADCTMAIN 07:56
PROVIDERS: ATTEND Internal Medicine
DX: K57.30 Diverticulosis of large intestine without perforation or abscess without bleeding (principal); K63.89 Other specified diseases of intestine
CPT/HCPCS: 74176

== ENCOUNTER → 2021-08-01 | Outpatient (CLI) | payer MEDICARE ==
--- NOTE | 2021-08-02 08:39 | NM ---
EXAMINATION TYPE: NM parathyroid w/spect DATE OF EXAM: 08/01/2021 COMPARISON: NONE HISTORY: Hyperparathyroidism TECHNIQUE: Following administration of 25.3 mCi Tc99m Sestamibi. Anterior projection images of the neck and ches t were obtained 10 minutes and 3 hours post injection. SPECT images of the neck and chest were obtai jack and reconstructed in three axes. FINDINGS: Thyroid tracer washout: Delayed images demonstrate near-complete tracer washout from the thyroid. Parathyroid uptake: None. The two-hour delayed images do not demonstrate any focal abnormal persisten t uptake in the region of the parathyroid glands to suggest parathyroid adenoma. Normal uptake: There is physiological tracer uptake in the myocardium, liver, salivary glands, and th yroid gland. IMPRESSION: Normal parathyroid imaging study. No evidence for mediastinal uptake to suggest mediastinal parathyro id adenoma
== END | disposition home or self-care (01) ==
LOC: RADNMMAIN 10:23
PROVIDERS: ATTEND Internal Medicine
DX: E21.3 Hyperparathyroidism, unspecified (principal)
CPT/HCPCS: 78071; A9500

== ENCOUNTER → 2021-10-13 | Outpatient (CLI) | payer MEDICARE ==
--- NOTE | 2021-10-13 19:14 | BD ---
EXAMINATION TYPE: Axial Bone Density DATE OF EXAM: 10/13/2021 COMPARISON: NONE CLINICAL HISTORY: 71 years year old Female. ICD-10 CODE: V8281, V4981, OSTEOPOROSIS SCREENING Height: 64 Weight: 195.7 FRAX RISK QUESTIONS: Alcohol (3 or more units per day): NO Family History (Parent hip fracture): NO Glucocorticoids (More than 3mos): NO (Ex: prednisone, prednisolone, methylprednisolone, dexamethasone, and hydrocortisone). History of Fracture in Adulthood: NO Secondary Osteoporosis: 1. Type 1 Diabetes: NO 2. Hyperthyroidism: NO 3. Menopause before 45: YES 4. Malnutrition: NO 5. Chronic liver disease: NO Rheumatoid Arthritis: NO Current Tobacco Use: NO RISK FACTORS HISTORY OF: Hip Fracture (Right/Left): NO Spine Fracture: NO History of Wrist Fracture: NO Surgery to Spine/Hip(right/left)/Wrist (right/left): NO Family History of Osteoporosis: NO Active: NO Diet low in dairy products/other sources of calcium: YES Postmenopausal woman: YES Take estrogen and/or progesterone medications: NO Lost more than 2 inches in height since high school: NO Frequent falls: NO Poor Health: NO Hyperparathyroidism: NO Adrenal Insufficiency: NO MEDICATIONS: Prednisone or other steroids: NO Thyroid Medications: NO Osteoporosis Medications: NO Additional Medications: CHOLESTEROL MEDS, BP MEDS Additional History: EXAM MEASUREMENTS: Bone mineral densitometry was performed using the [employer] System. Bone mineral density as measured about the Lumbar spine is: ----- L1-L4(G/cm2): 1.158 T Score Values are as follows: ----- L1: -0.4 ----- L2: 0.9 ----- L3: 0.2 ----- L4: -1.2 ----- L1-L4: -0.2 BASELINE STUDY Bone mineral density about the R hip (g/cm2): 0.896 Bone mineral density about the L hip (g/cm2): 0.932 T Score values are as follows: -----R Neck: -1.0 -----L Neck: -0.8 -----R Total: 0.2 -----L Total: -0.1 BASELINE STUDY FRAX%s: The graph provided illustrates a 8.4% chance for a major osteoporotic fx and a 0.9% chance fo r the hips probability for fx in 10 years time. IMPRESSION: Normal (Values between +1 and -1 indicate normal bone mass). However, note that measurements are bor dering on osteopenia at the right hip. Consider repeating this study in 5 years or sooner if there is some new clinical indication. NOTE: T-SCORE=SD OF THE YOUNG ADULT MEAN.
--- NOTE | 2021-10-21 17:05 | MM ---
Reason for Exam: Screening (asymptomatic). Last mammogram was performed 1 year(s) and 1 month(s) ago. Patient History: Menarche at age 13. First Full-Term at age 26. Left ovary removed at age 28. Right ovary removed at age 28. Hysterectomy at age 28. Postmenopausal. Risk Values: Shavon 5 year model risk: 1.9%. NCI Lifetime model risk: 5.6%. Prior Study Comparison: 12/06/2017 Bilateral Screening Mammogram, [facility]. 09/12/2019 Bilateral Screening Mammogram, [facility]. 10/05/2020 Bilateral Screening Mammogram, [facility]. Tissue Density: The breast tissue is heterogeneously dense. This may lower the sensitivity of mammography. Findings: Analyzed By CAD. Benign vascular calcification is present bilaterally. No suspicious groups of microcalcifications, spiculated or lobular masses, architectural distortion or other secondary signs of malignancy are mammographically apparent. Overall Assessment: Benign, BI-RAD 2 Management: Screening Mammogram of both breasts in 1 year. A negative mammogram report should not preclude additional follow up of suspicious palpable abnormalities. Patient should continue monthly self breast exam. A clinical breast exam by your physician is recommended on an annual basis and results should be correlated with mammographic findings. Electronically signed and approved by: Saturnino Noble D.O. Radiologis
== END | disposition home or self-care (01) ==
LOC: RADMAMWWP 06:49
PROVIDERS: ATTEND Internal Medicine
DX: Z12.31 Encounter for screening mammogram for malignant neoplasm of breast (principal); M85.89 Other specified disorders of bone density and structure, multiple sites; Z78.0 Asymptomatic menopausal state
CPT/HCPCS: 77063; 77067; 77080

== ENCOUNTER → 2022-07-14 | Outpatient (CLI) | payer MEDICARE ==
[2022-07-14 16:13] LABS: ALT 22 U/L (8-44); AST 15 U/L (13-35); Albumin 4.3 d/dL (3.8-4.9); Albumin/Globulin Ratio 1.72 Ratio (1.60-3.17); Alkaline Phosphatase 84 U/L (41-126); BUN/Creat Ratio 25.88 Ratio (12.00-20.00); Blood Urea Nitrogen 20.7 mg/dL (9.0-27.0); Calcium 11.3 mg/dL (8.7-10.3); Carbon Dioxide 30.9 mmol/L (21.6-31.8); Chloride 100 mmol/L (96-109); Globulin 2.5 d/dL (1.6-3.3); Glucose 164 mg/dL (70-110); Potassium 5.3 mmol/L (3.5-5.5); Sodium 141 mmol/L (135-145); T4, Free (Free Thyroxine) 1.63 ng/dL (0.80-1.80); Total Bilirubin 0.8 mg/dL (0.3-1.2); Total Protein 6.8 d/dL (6.2-8.2)
== END | disposition home or self-care (01) ==
LOC: LABWHC1 07:50
PROVIDERS: ATTEND Internal Medicine Endocrinology, Diabetes & Metabolism
DX: E11.65 Type 2 diabetes mellitus with hyperglycemia (principal); E21.0 Primary hyperparathyroidism; E04.2 Nontoxic multinodular goiter
CPT/HCPCS: 36415; 80053; 82306; 83036; 83970; 84439; 84443

== ENCOUNTER 2022-08-03 12:22 | Day surgery (SDC) | payer MEDICARE ==
[~2022-08-03 12:22] MED LIST changes: +ALPRAZolam 0.25 MG TAB PO PRN; -LACTATED RINGERS 1,000 ML IV SCH; -ONDANSETRON 4 MG/2 ML VIAL IVP PRN; -ceFAZolin 1,000 MG in DEXTROSE/WATER 1 50ML.BAG IV ONE; -fentaNYL (PF) 50 MCG/ML 2 ML AMP IV PRN
[2022-08-03 13:15] VITALS: TEMP 97.9
[2022-08-03 14:08] VITALS: BP 141/84; PULSE 88; RESP 19
--- NOTE | 2022-08-03 14:48 | US ---
EXAMINATION TYPE: US FNA thyroid first lesion DATE OF EXAM: 08/03/2022 2:05 PM CLINICAL INDICATION:Female, 72 years old with history of E04.2; , thyroid nodule. COMPARISON: 04/17/2022 ATTENDING: Dr. Darinel Pierson PROCEDURE: Informed consent was obtained. The risks and benefits of the procedure were discussed with the patien t. The site was marked. Timeout procedure was performed Ultrasound imaging of the thyroid demonstrates right thyroid hypoechoic nodule The patient was prepped, draped in the usual sterile fashion, and locally anesthetized with 1% lidoca ine. Five fine needle aspiration were then performed with a 25 gauge needle. Samples were sent to [facility] pathology department for further analysis. Patient tolerated the procedure without incident and wa s sent home in stable condition. IMPRESSION: Successful ultrasound guided fine needle aspiration.
== END 2022-08-03 14:11 | disposition home or self-care (01) ==
LOC: RADPROMAIN 12:22
PROVIDERS: ATTEND Internal Medicine Endocrinology, Diabetes & Metabolism
DX: D34 Benign neoplasm of thyroid gland (principal)
CPT/HCPCS: 10005; 88173; 88305

== ENCOUNTER → 2022-12-18 | Outpatient (CLI) | payer MEDICARE ==
[2022-12-18 16:52] LABS: Basophils # (A) 0.02 X 10*3/uL (0.00-0.10); Basophils % (A) 0.3 %; Eosinophils # (A) 0.17 X 10*3/uL (0.04-0.35); Eosinophils % (A) 2.2 %; HCT 50.7 % (37.2-46.3); HGB 16.4 g/dL (12.0-15.0); Lymphocytes # (A) 2.19 X 10*3/uL (0.90-5.00); Lymphocytes % (A) 28.7 %; MCH 29.3 pg (27.0-32.0); MCHC 32.3 g/dL (32.0-37.0); MCV 90.5 FL (80.0-97.0); Mean Platelet Volume 9.8 FL (9.5-12.2); Monocytes # (A) 0.69 X 10*3/uL (0.20-1.00); NRBC Per 100 WBC 0 X 10*3/uL (0.00-0.01); Neutrophils # (A) 4.53 X 10*3/uL (1.80-7.70); Neutrophils % (A) 59.3 %; Platelet Count 265 X 10*3/uL (140-440); RDW 12.1 % (11.5-14.5); WBC 7.64 X 10*3/uL (4.50-10.00)
[2022-12-18 18:50] LABS: ALT 16 U/L (8-44); AST 13 U/L (13-35); Albumin 4.3 g/dL (3.8-4.9); Albumin/Globulin Ratio 1.59 Ratio (1.60-3.17); Alkaline Phosphatase 107 U/L (41-126); BUN/Creat Ratio 28.71 Ratio (12.00-20.00); Blood Urea Nitrogen 20.1 mg/dL (9.0-27.0); Calcium 11.5 mg/dL (8.7-10.3); Carbon Dioxide 26.6 mmol/L (21.6-31.8); Chloride 103 mmol/L (96-109); Chol/HDL Ratio 3.55 Ratio; Globulin 2.7 g/dL (1.6-3.3); Glucose 249 mg/dL (70-110); LDL Cholesterol,Calculated 89.4 mg/dL (0.0-131.0); Potassium 4.6 mmol/L (3.5-5.5); Sodium 141 mmol/L (135-145); Total Bilirubin 0.9 mg/dL (0.3-1.2)
[2022-12-18 20:26] LABS: Urine Creatinine 57.4 mg/dL (28.0-217.0)
== END | disposition home or self-care (01) ==
LOC: LABWHC1 08:14
PROVIDERS: ATTEND Internal Medicine Endocrinology, Diabetes & Metabolism
DX: Z00.00 Encounter for general adult medical examination without abnormal findings (principal); E21.0 Primary hyperparathyroidism; E11.65 Type 2 diabetes mellitus with hyperglycemia
CPT/HCPCS: 36415; 80053; 80061; 82043; 82306; 82570; 83036; 83970; 84443; 85025

== ENCOUNTER → 2022-12-29 | Outpatient (CLI) | payer MEDICARE ==
[2022-12-29 10:23] LABS: Basophils % (A) 0 %; Eosinophils # (A) 0.1 k/uL (0-0.7); Eosinophils % (A) 2 %; HCT 44.6 % (34.0-46.0); HGB 14.4 gm/dL (11.4-16.0); Lymphocytes % (A) 24 %; MCH 30.2 pg (25.0-35.0); MCHC 32.4 g/dL (31.0-37.0); MCV 93.2 fL (80.0-100.0); Mean Platelet Volume 7.3; Monocytes # (A) 0.4 k/uL (0-1.0); Monocytes % (A) 4 %; Neutrophils # (A) 5.6 k/uL (1.3-7.7); Neutrophils % (A) 68 %; Platelet Count 322 k/uL (150-450); RBC 4.78 m/uL (3.80-5.40); WBC 8.3 k/uL (3.8-10.6)
[2022-12-29 16:23] LABS: Albumin 3.9 g/dL (3.8-4.9); Protein, Total 6.6 g/dL (6.2-8.2)
[2023-01-01 15:42] LABS: Gamma Globulin 1.03 g/dL (0.70-1.50)
== END | disposition home or self-care (01) ==
LOC: LABWHC1 09:09
PROVIDERS: ATTEND Internal Medicine
DX: D75.1 Secondary polycythemia (principal)
CPT/HCPCS: 36415; 82668; 84165; 85025

== ENCOUNTER → 2023-04-02 | Outpatient (CLI) | payer MEDICARE ==
[2023-04-02 15:41] LABS: Blood Urea Nitrogen 31.5 mg/dL (9.0-27.0); Carbon Dioxide 26.1 mmol/L (21.6-31.8); Chloride 104 mmol/L (96-109); Potassium 4.7 mmol/L (3.5-5.5); Sodium 140 mmol/L (135-145)
[2023-04-02 15:53] LABS: HGB 17.5 g/dL (12.0-15.0); MCH 29.2 pg (27.0-32.0); MCHC 32.4 g/dL (32.0-37.0); MCV 90.2 FL (80.0-97.0); Mean Platelet Volume 9.7 FL (9.5-12.2); NRBC Per 100 WBC 0 X 10*3/uL (0.00-0.01); Platelet Count 250 X 10*3/uL (140-440); RBC 5.99 X 10*6/uL (4.10-5.20); RDW 11.9 % (11.5-14.5); WBC 6.46 X 10*3/uL (4.50-10.00)
== END | disposition home or self-care (01) ==
LOC: LABPAT 08:15
PROVIDERS: ATTEND Internal Medicine Interventional Cardiology
DX: Z01.812 Encounter for preprocedural laboratory examination (principal); I25.10 Atherosclerotic heart disease of native coronary artery without angina pectoris
CPT/HCPCS: 36415; 80051; 82565; 84520; 85027

== ENCOUNTER → 2023-12-24 | Outpatient (CLI) | payer MEDICARE ==
--- NOTE | 2023-12-24 16:12 | US ---
EXAMINATION TYPE: US abdomen complete DATE OF EXAM: 12/24/2023 COMPARISON: 02/24/2021 CLINICAL INDICATION: Female, 73 years old with history of E04.1 THY NODULE E80.6 HERBILIRUBINEMIA; ab n labs, cholecystectomy, no symptoms TECHNIQUE: Grayscale and color Doppler imaging of the abdomen was performed. FINDINGS: EXAM MEASUREMENTS: Liver Length: 16.2 cm Gallbladder Wall: Surgically absent CBD: 0.9 cm, color Doppler imaging was utilized to isolate the common bile duct for measurement. Spleen: 10.9 cm Right Kidney: 10.0 x 4.6 x 5.9 cm Left Kidney: 10.9 x 7.0 x 10.9 cm ALARM SECURITY OR SURVEILLANCE MONITOR NOTES: bowel gas limits exam Pancreas: wnl Liver: difficult to penetrate , no suspicious masses or dilated ducts or cystic structures. Gallbladder: Surgically absent Evidence for sonographic Velasquez's sign: no CBD: wnl Spleen: wnl Right Kidney: wnl Left Kidney: wnl Upper IVC: wnl Abd Aorta: wnl The liver is homogenous coarse in echotexture.. The intrahepatic portion of the IVC and proximal abd ominal aorta are within normal limits. Common bile duct is unremarkable. The visualized portions of the pancreas are homogenous. The spleen is unremarkable. Kidneys are symmetric and free of hydrone phrosis. No renal lesions are seen. IMPRESSION: 1. No evidence for acute process. 2. Hepatocellular disease correlate with serum markers. [facility], , 12/24/2023 4:10 PM
--- NOTE | 2023-12-24 16:25 | US ---
EXAMINATION TYPE: US thyroid st tissue head/neck DATE OF EXAM: 12/24/2023 COMPARISON: 04/14/2022, 08/03/2022. CLINICAL INDICATION: Female, 73 years old with history of E04.1 THY NODULE E80.6 HERBILIRUBINEMIA; h/ o nodules and FNA, not on meds, no symptoms TECHNIQUE: Grayscale and color Doppler imaging of the thyroid gland. FINDINGS: GLAND SIZE: Right Lobe: 5.7 x 1.8 x 2.5cm Overall Parenchyma: heterogeneous Left Lobe: 3.6 x 1.6 x 1.8 cm Overall Parenchyma: heterogeneous Isthmus Thickness: 0.3 cm NODULES RIGHT: # of nodules measured on right: multiple, measured largest 1. 1.0 X 0.5 x 0.8 cm, lower lateral, Prior size: not measured previously TIRADS Score: 4 TIRADS Category 4: Composition: Solid or almost completely solid (2 points). Echogenicity: Hypoechoic (2 points). Shape: Wider than tall (0 points). Margin: Smooth (0 points). Echogenic foci: None or large comet-tail artifacts (0 points) Recommendation: If >1.5cm: FNA; If >1cm: Follow up at 1,2, 3,5 years 2. 1.3 X 1.5 x 0.9 cm, mid medial, Prior size: 1.5 x 1.6 x 1.0 cm TIRADS Score: 4 TIRADS Category 4: Composition: Solid or almost completely solid (2 points). Echogenicity: Hypoechoic (2 points). Shape: Wider than tall (0 points). Margin: Smooth (0 points). Echogenic foci: None or large comet-tail artifacts (0 points) Recommendation: If >1.5cm: FNA; If >1cm: Follow up at 1,2, 3,5 years LEFT: # of nodules measured on left: multiple, measured largest 1. 0.7 X 0.5 x 0.4 cm, upper , Prior size: 0.7 x 0.4 x 0.6 cm TIRADS Score: 4 TIRADS Category 4: Composition: Solid or almost completely solid (2 points). Echogenicity: Hypoechoic (2 points). Shape: Wider than tall (0 points). Margin: Smooth (0 points). Echogenic foci: None or large comet-tail artifacts (0 points) Recommendation: If >1.5cm: FNA; If >1cm: Follow up at 1,2, 3,5 years 2. 0.5 X 0.3 x 0.4 cm, lower, Prior size: 0.5 x 0.4 x 0.4 cm TIRADS Score: 3 TIRADS Category 3: Composition: Solid or almost completely solid (2 points). Echogenicity: Hyperechoic or isoechoic (1 point). Shape: Wider than tall (0 points). Margin: Smooth (0 points). Echogenic foci: None or large comet-tail artifacts (0 points) Recommendation: If >2.5cm: FNA; If >1.5cm: Follow up at 1,3,5 years ISTHMUS: # of nodules measured in the isthmus: 0 Bilateral neck scanned, no evidence of lymphadenopathy. IMPRESSION: Thyroid nodules that meet criteria for follow-up. [facility], , 12/24/2023 4:22 PM
== END | disposition home or self-care (01) ==
LOC: RADUSWWP 06:50
PROVIDERS: ATTEND Internal Medicine
DX: E80.6 Other disorders of bilirubin metabolism (principal); E04.2 Nontoxic multinodular goiter
CPT/HCPCS: 76536; 76700

== ENCOUNTER → 2024-01-04 | Outpatient (CLI) | payer MEDICARE ==
[2024-01-04 15:34] LABS: Basophils # (A) 0.02 X 10*3/uL (0.00-0.10); Basophils % (A) 0.3 %; Eosinophils % (A) 1.7 %; HCT 44.8 % (37.2-46.3); HGB 14.7 g/dL (12.0-15.0); Lymphocytes # (A) 1.25 X 10*3/uL (0.90-5.00); Lymphocytes % (A) 21.7 %; MCH 29.8 pg (27.0-32.0); MCHC 32.8 g/dL (32.0-37.0); MCV 90.9 FL (80.0-97.0); Mean Platelet Volume 10.1 FL (9.5-12.2); Monocytes # (A) 0.39 X 10*3/uL (0.20-1.00); Monocytes % (A) 6.8 %; NRBC Per 100 WBC 0 X 10*3/uL (0.00-0.01); Neutrophils # (A) 3.98 X 10*3/uL (1.80-7.70); Neutrophils % (A) 69.2 %; Platelet Count 243 X 10*3/uL (140-440); RBC 4.93 X 10*6/uL (4.10-5.20); RDW 12.1 % (11.5-14.5); WBC 5.76 X 10*3/uL (4.50-10.00)
[2024-01-04 15:56] LABS: Hepatitis A Antibody IgM Nonreactive (Nonreactive); Hepatitis B Core IgM Nonreactive (Nonreactive); Hepatitis B Surface Antigen Nonreactive (Nonreactive); Hepatitis C IgG Antibody Nonreactive (Nonreactive)
[2024-01-04 16:00] LABS: % Iron Saturation 22.57 (12.00-45.00); Iron 86 UG/DL (50-170); Total Iron Binding Capacity 381 UG/DL (228-460)
[2024-01-04 16:01] LABS: ALT 13 U/L (8-44); AST 13 U/L (13-35); Albumin 4.1 g/dL (3.8-4.9); Albumin/Globulin Ratio 1.78 Ratio (1.60-3.17); Alkaline Phosphatase 121 U/L (41-126); BUN/Creat Ratio 30.67 Ratio (12.00-20.00); Blood Urea Nitrogen 18.4 mg/dL (9.0-27.0); Calcium 10.6 mg/dL (8.7-10.3); Carbon Dioxide 24.8 mmol/L (21.6-31.8); Chloride 108 mmol/L (96-109); Globulin 2.3 g/dL (1.6-3.3); Glucose 221 mg/dL (70-110); Potassium 4.3 mmol/L (3.5-5.5); Sodium 143 mmol/L (135-145); Total Protein 6.4 g/dL (6.2-8.2)
[2024-01-05 03:44] LABS: EBV - VCA IgM <10.0 U/mL (<36.0)
[2024-01-07 11:26] LABS: Smooth Muscle Antibody 5 UNITS (<20)
== END | disposition home or self-care (01) ==
LOC: LABWHC1 09:19
PROVIDERS: ATTEND Internal Medicine
DX: E80.6 Other disorders of bilirubin metabolism (principal); E83.52 Hypercalcemia; E11.42 Type 2 diabetes mellitus with diabetic polyneuropathy
CPT/HCPCS: 36415; 80053; 80074; 82103; 82306; 82390; 82525; 83036; 83516; 83540; 83550; 85025; 86038; 86645; 86665

== ENCOUNTER 2024-04-14 04:38 | Inpatient (IN) | payer MEDICARE ==
--- NOTE | 2024-04-14 04:52 | ED ---
Chest Pain HPI - General Stated Complaint: chest pain Time Seen by Provider: 04/14/24 04:51 Source: patient, RN notes reviewed, old records reviewed Mode of arrival: ambulatory Limitations: no limitations - History of Present Illness Initial Comments: This is a 74-year-old female to the ER for evaluation of chest pain history of heart surgery left-sided chest pain, patient had stents placed about 4 years ago no episodes of chest pain since. She does have chest pain and tenderness to the left side of the chest no shortness of breath no sweating no other recent illness chest pain woke her up from sleep michael WARD Complaint: chest pain -: hour(s) Onset: awoke with symptoms Pain Location: substernal, left chest Pain Radiation: none Severity: moderate Severity scale (1-10): 4 Quality: tightness, heaviness Consistency: constant Improves With: nothing Worsens With: nothing Anginal Symptoms: sense of impending doom Other Symptoms: palpitations Treatments Prior to Arrival: none - Related Data Home Medications Medication Instructions Recorded Confirmed Ranolazine [Ranexa] 500 mg PO BID 08/18/20 04/05/23 Benzonatate [Tessalon Perles] 100 mg PO TID 07/21/22 04/05/23 Ergocalciferol [Vitamin D2 (1250 1,250 mcg PO TU 07/21/22 04/05/23 Mcg = 70229 Iu)] Montelukast [Singulair] 10 mg PO DAILY 07/21/22 04/05/23 Pravastatin Sodium [Pravachol] 80 mg PO HS 07/21/22 04/05/23 Albuterol Inhaler [Ventolin Hfa 1 - 2 puff INHALATION Q6H PRN 03/29/23 04/05/23 Inhaler] Cetirizine HCl [Zyrtec] 10 mg PO BID 03/29/23 04/05/23 Diclofenac Sodium Gel [Voltaren 1% 2 gm TOPICAL DIRECTED PRN 03/29/23 04/05/23 Gel] Empagliflozin [Jardiance] 25 mg PO DAILY 03/29/23 04/05/23 glipiZIDE XL [Glucotrol XL] 5 mg PO BID 03/29/23 04/05/23 Previous Rx's Medication Instructions Recorded Aspirin 81 mg PO DAILY #30 chew 11/02/19 Spironolactone [Aldactone] 25 mg PO DAILY #30 tab 11/02/19 lisinopriL [Zestril] 10 mg PO DAILY #30 tab 11/02/19 Isosorbide Mononitrate ER [Imdur] 30 mg PO DAILY 30 Days #30 07/07/20 tab.er.24h Allergies Allergy/AdvReac Type Severity Reaction Status Date / Time No Known Allergies Allergy Verified 04/14/24 04:49 Review of Systems ROS Statement: Those systems with pertinent positive or pertinent negative responses have been documented in the HPI. ROS Other: All systems not noted in ROS Statement are negative. EKG Findings - EKG Comments: EKG Findings:: EKG is sinus 69 QRS 87 QTc 413 - EKG Results: EKG: interpreted by OLEKSANDR Past Medical History Past Medical History: Asthma, Coronary Artery Disease (CAD), CVA/TIA, Diabetes Mellitus, Deep Vein Thrombosis (DVT), Hypertension, Myocardial Infarction (DC), Osteoarthritis (OA), Renal Disease, Thyroid Disorder Additional Past Medical History / Comment(s): TIA 8 yrs ago (2016)., 1998 pericarditis, diabetes-hx of insulin use., neuropathy feet, hx exertional asthma., seasonal allergies., bronchitis, TB with tx 1969 and L lung scarring., hiatal hernia, past esophageal strictures/dilations. , thyroid & parathyroid nodules., kidney stones., bronchospasm, currently has harsh cough- pt to call Drs office if cough does not subside., See Cardiology h & p. Last Myocardial Infarction Date:: 10/30/2019 History of Any Multi-Drug Resistant Organisms: None Reported Past Surgical History: Section, Cholecystectomy, Heart Catheterization With Stent, Hysterectomy, Joint Replacement, Orthopedic Surgery Additional Past Surgical History / Comment(s): 10/30/19 PCI with 3stents LAD/aspiration thrombectomy, bilateral knee arthroscopies, L shoulder rotator cuff repair, R shoulder frozen shoulder/manipulation and fractured, exploratory laparoscopy with endometrial scraping, R percutaneous nephrostolithotomy twice for stones, colonoscopies/benign polypectomies, esophageal dilations, Bilatera cataract removal/lens implant., right eye laser for clot., total right knee, left totl knee. 3 stents placed 10-30-2019 Past Anesthesia/Blood Transfusion Reactions: Motion Sickness Additional Past Anesthesia/Blood Transfusion Reaction / Comment(s): hx of blood transfusion after hysterectomy-no reaction Date of Last Stent Placement:: 10/30/2019 Past Psychological History: No Psychological Hx Reported Smoking Status: Never smoker Past Alcohol Use History: Rare Past Drug Use History: None Reported - Past Family History Mother History Unknown: Yes Family Medical History: No Reported History Additional Family Medical History / Comment(s): Mother at the age of 38 yrs after surgery Father Family Medical History: Myocardial Infarction (DC) Additional Family Medical History / Comment(s): Father= DC at the age of 65 yrs, then of a DC at the age of 83 yrs. General Exam Limitations: no limitations General appearance: alert, in no apparent distress Head exam: Present: atraumatic, normocephalic, normal inspection Eye exam: Present: normal appearance, PERRL, EOMI. Absent: scleral icterus, conjunctival injection, periorbital swelling ENT exam: Present: normal exam, mucous membranes moist Neck exam: Present: normal inspection. Absent: tenderness, meningismus, lymphadenopathy Respiratory exam: Present: normal lung sounds bilaterally. Absent: respiratory distress, wheezes, rales, rhonchi, stridor Cardiovascular Exam: Present: regular rate, normal rhythm, normal heart sounds. Absent: systolic murmur, diastolic murmur, rubs, gallop, clicks GI/Abdominal exam: Present: soft, normal bowel sounds. Absent: distended, tenderness, guarding, rebound, rigid Extremities exam: Present: normal inspection, full ROM, normal capillary refill. Absent: tenderness, pedal edema, joint swelling, calf tenderness Back exam: Present: normal inspection Neurological exam: Present: alert, oriented X3, CN II-XII intact Psychiatric exam: Present: normal affect, normal mood Skin exam: Present: warm, dry, intact, normal color. Absent: rash Course Vital Signs 04/14/24 04/14/24 04:49 06:46 Temperature 97.4 F L Pulse Rate 67 56 L Respiratory 16 18 Rate Blood Pressure 145/70 107/72 O2 Sat by Pulse 96 95 Oximetry - Reevaluation(s) Reevaluation #1: 04/14/24 05:54 Medical records reviewed Reevaluation #2: 04/14/24 07:03 Patient still with chest pain here in the ER Reevaluation #3: 04/14/24 07:03 Patient informed of results questions answered Reevaluation #4: Was pt. sent in by a medical professional or institution (, [facility], [employer], urgent care, hospital, or fci...) When possible be specific @ -no Did you speak to anyone other than the patient for history (EMS, parent, family, police, friend...)? What history was obtained from this source @ -no Did you review nursing and triage notes (agree or disagree)? Why? @ -agree Are old charts reviewed (outside hosp., previous admission, EMS record, old EKG, old radiological studies, urgent care reports/EKG's, fci records)? Report findings @ -yes Differential Diagnosis (chest pain, altered mental status, abdominal pain women, abdominal pain men, vaginal bleeding, weakness, fever, dyspnea, syncope, headache, dizziness, GI bleed, back pain, seizure, CVA, palpatations, mental health, musculoskeletal)? @ -prior EKG interpreted by me (3pts min.). @ -yes X-rays interpreted by me (1pt min.). @ -yes negative for acute disease CT interpreted by me (1pt min.). @ -no U/S interpreted by me (1pt. min.). @ -no What testing was considered but not performed or refused? (CT, X-rays, U/S, labs)? Why? @ -none What meds were considered but not given or refused? Why? @ -none Did you discuss the management of the patient with other professionals (professionals i.e. , [facility], [employer], lab, RT, psych nurse, social work instructor, supervisor coal handling, teacher, principal gifts officer, social work case manager)? Give summary @ -no Was smoking cessation discussed for >3mins.? @ -no Was critical care preformed (if so, how long)? @ -no Were there social determinants of health that impacted care today? How? (Homelessness, low income, unemployed, alcoholism, drug addiction, transportation, low edu. Level, literacy, decrease access to med. care, longterm, rehab)? @ -none Was there de-escalation of care discussed even if they declined (Discuss DNR or withdrawal of care, Hospice)? DNR status @ -no What co-morbidities impacted this encounter? (DM, HTN, Smoking, COPD, CAD, Cancer, CVA, ARF, Chemo, Hep., AIDS, mental health diagnosis, sleep apnea, morbid obesity)? @ -none Was patient admitted / discharged? Hospital course, mention meds given and route, prescriptions, significant lab abnormalities, going to OR and other pertinent info. @ - Undiagnosed new problem with uncertain prognosis? @ -no Drug Therapy requiring intensive monitoring for toxicity (Heparin, Nitro, Insulin, Cardizem)? @ -no Were any procedures done? @ -no Diagnosis/symptom? @ - Acute, or Chronic, or Acute on Chronic? @ -Acute Uncomplicated (without systemic symptoms) or Complicated (systemic symptoms)? @ -Complicated Side effects of treatment? @ -no Exacerbation, Progression, or Severe Exacerbation? @ -exacerbation Poses a threat to life or bodily function? How? (Chest pain, USA, DC, pneumonia, PE, COPD, DKA, ARF, appy, cholecystitis, CVA, Diverticulitis, Homicidal, Suicid al, threat to staff... and all critical care pts) @ -yes Reevaluation #5: Differential Chest Pain: Stable Angina, Unstable Angina, STEMI, NSTEMI Aortic Dissection, Pneumothorax, Musculoskeletal, Esophageal Spasm GERD, Cholecystitis, Pancreatitis, Zoster, this is not meant to be an all-inclusive list. - Consultations Consultation #1: Spoke with carmen who agrees to admit this patient Chest Pain MDM - MDM 74 female positive history of CAD positive history of stent coming in for chest pain. States she has not felt well since starting metoprolol earlier last week patient is still having chest pain here in the ER and the chest pain that woke her up from sleep last night patient admitted for cardiology observation Disposition Clinical Impression: Chest pain, Unstable angina pectoris Disposition: ADMITTED IP TO THIS HOSP Condition: Fair Is patient prescribed a controlled substance at d/c from ED?: No Referrals: Pastor Blackman DO [Primary Care Provider] - 1-2 days Time of Disposition: 07:00
[2024-04-14 05:34] LABS: Partial Thromboplastin Time 23.2 sec (22.0-30.0); Prothrombin Time 10.8 sec (10.0-12.5)
[2024-04-14 05:35] LABS: Basophils % (A) 0 %; Eosinophils # (A) 0.1 k/uL (0-0.7); Eosinophils % (A) 2 %; HCT 50.3 % (34.0-46.0); Lymphocytes % (A) 24 %; MCH 29.2 pg (25.0-35.0); MCHC 31.9 g/dL (31.0-37.0); MCV 91.6 fL (80.0-100.0); Mean Platelet Volume 7.5; Monocytes # (A) 0.5 k/uL (0-1.0); Monocytes % (A) 6 %; Neutrophils # (A) 5.4 k/uL (1.3-7.7); Neutrophils % (A) 66 %; Platelet Count 248 k/uL (150-450); RDW 11.8 % (11.5-15.5); WBC 8.2 k/uL (3.8-10.6)
--- NOTE | 2024-04-14 05:44 | XR ---
EXAMINATION TYPE: XR chest 2V DATE OF EXAM: 04/14/2024 CLINICAL INDICATION: Female, 74 years old with history of Chest Pain, TECHNIQUE: Frontal and lateral views of the chest are obtained. COMPARISON: Chest x-ray March 20, 2014 FINDINGS: Overlying EKG leads on the current study are noted. There is no focal air space opacity, p leural effusion, or pneumothorax seen. Mild cardiomegaly redemonstrated. Scoliosis is redemonstrated. IMPRESSION: Mild cardiomegaly without acute pulmonary process. [facility], , 04/14/2024 5:42 AM
[2024-04-14] MEDS ORDERED: NITROGLYCERIN SL TABS 0.4 MG TAB SUBLINGUAL PRN (06:58)
[2024-04-14] MEDS ORDERED: MORPHINE SULFATE 4 MG/ML SYRINGE IV PRN (06:58)
[2024-04-14 07:06] LABS: ALT 21 U/L (4-34); AST 22 U/L (14-36); African American GFR (CKD) >90 (>60 ml/min/1.73 sqM); Albumin 4.2 g/dL (3.5-5.0); Alkaline Phosphatase 96 U/L (38-126); Anion Gap 9 mmol/L; Blood Urea Nitrogen 31 mg/dL (7-17); Calcium 10.7 mg/dL (8.4-10.2); Carbon Dioxide 27 mmol/L (22-30); Chloride 103 mmol/L (98-107); Glucose 198 mg/dL (74-99); Lipase 46 U/L (23-300); Magnesium 1.6 mg/dL (1.6-2.3); Non-African American GFR(CKD) 85 (>60 ml/min/1.73 sqM); Potassium 4.7 mmol/L (3.5-5.1); Sodium 139 mmol/L (137-145); Total Bilirubin 1.6 mg/dL (0.2-1.3)
[2024-04-14 07:11] LABS: NT-Pro-B-Type Natriuretic Pept 143 pg/mL
[2024-04-14] MEDS: ASPIRIN 81 MG PO STA (07:29)
[2024-04-14] MEDS: HEPARIN SODIUM 1,000 UN/ML (10ML VL) IV ONE (07:30)
[2024-04-14] MEDS: HEPARIN SOD,PORK IN 0.45% NACL 25,000 UNIT in 0.45% NACL 1 250ML.BAG IV SCH (07:31)
[2024-04-14] MEDS ORDERED: ALBUTEROL NEBULIZED 2.5 MG/3 ML INHALATION PRN (08:32)
[2024-04-14] MEDS ORDERED: DEXTROSE 50% SYRINGE 50 ML IVP PRN ×2 (08:43)
[2024-04-14] MEDS: MAGNESIUM SULFATE-D5W PMX 1 GM in DEXTROSE/WATER 1 100ML.BAG IVPB SCH (08:57)
[2024-04-14] MEDS: RANOLAZINE 500 MG TAB.ER.12H PO SCH (08:59)
[2024-04-14] MEDS ORDERED: ATORVASTATIN 80 MG TAB PO SCH (09:00)
[2024-04-14] MEDS: ISOSORBIDE MONONITRATE ER 30 MG TAB.ER.24H PO SCH (09:01)
[2024-04-14] MEDS: METOPROLOL SUCCINATE (ER) 25 MG TAB.ER.24H PO SCH (09:01)
[2024-04-14] MEDS: lisinopriL 20 MG TAB PO SCH (09:02)
[2024-04-14] MEDS ORDERED: MAG HYDROX/AL HYDROX/SIMETH 30 ML CUP PO PRN (09:15)
[2024-04-14] MEDS ORDERED: CAFFEINE CITRATE 60 MG/3 ML VIAL IV PRN (09:25)
[2024-04-14] MEDS ORDERED: REGADENOSON 0.4 MG/5 ML SYRINGE IV PRN (09:25)
[2024-04-14] MEDS ORDERED: AMINOPHYLLINE 500 MG/20 ML VIAL IV PRN (09:25)
--- NOTE | 2024-04-14 09:25 | P.CRDCN ---
History of Present Illness History of present illness: HISTORY OF PRESENTING ILLNESS This is a pleasant 74-year-old with past medical history significant for hypertension, hyperlipidemia, diabetes, CAD status post stenting of the LAD, circumflex and HEEL PAINTER of the RCA with ischemic cardiomyopathy and carotid artery stenosis as well as aortic stenosis who presents secondary to chest pain.. She follows in the office with Dr. Cuba. She states she had been feeling fine and then woke up from sleep at approximately 3 to 4 AM with more epigastric pain and nausea with some shortness of breath. She also had pain going down her left arm. She denies any prior similar symptoms. She had last heart catheterization March 2023 with known HEEL PAINTER of the RCA with [id number] collaterals and intermediate LAD disease. She has done fairly well since. She has been on Ozempic for a few months and does get bloated feeling and [place] at times however nothing similar to this and no recent changes to medications. EKG showed Q waves V1 through V6 as well as inferiorly with nonspecific ST changes and frequent PVCs. Given symptoms patient was started on heparin drip. She states originally her pain was approximately 7 and now down to approximately 3. Denies any diaphoresis. Troponins normal x 2. REVIEW OF SYSTEMS At the time of my exam: CONSTITUTIONAL: Denies fever or chills. CARDIOVASCULAR: + chest pain, +shortness of breath, no orthopnea, PND or palpitations. RESPIRATORY: Denies cough. GASTROINTESTINAL: Denies abdominal pain, diarrhea, constipation, nausea or vomiting. MUSCULOSKELETAL: Denies myalgias. NEUROLOGIC: Denies numbness, tingling or weakness. ENDOCRINE: Denies fatigue, weight change, polydipsia or polyurina. GENITOURINARY: Denies burning, hematuria or urgency with micturation. HEMATOLOGIC: Denies history of anemia or bleeding. PHYSICAL EXAMINATION Vital signs reviewed. CONSTITUTIONAL: No apparent distress. HEENT: Head is normocephalic. Pupils are equal, round. Sclerae anicteric. Mucous membranes of the mouth are moist. No JVD. No carotid bruit. CHEST EXAMINATION: Lungs are clear to auscultation. No chest wall tenderness is noted on palpation or with deep breathing. HEART EXAMINATION: Regular rate and rhythm. S1, S2 heard. No murmurs, gallops or rub. ABDOMEN: Soft, nontender. Positive bowel sounds. EXTREMITIES: 2+ peripheral pulses, no lower extremity edema and no calf tenderness. NEUROLOGIC EXAMINATION: Patient is awake, alert and oriented x3. ASSESSMENT Atypical epigastric pain as well as chest pain with some nausea and shortness of breath. Rule out unstable angina CAD with prior HEEL PAINTER of LAD as well as PCI History of cardiomyopathy Diabetes mellitus type 2 Hypertension Hyperlipidemia Obesity Aortic stenosis PLAN Patient's symptoms somewhat atypical and appear possibly GI related. Attempt GI cocktail. Awaiting third troponin and if normal discussed stress test and patient is agreeable. Check stress test as well as echo. Patient with known HEEL PAINTER of RCA and expected inferior ischemia however no other ischemia would likely be okay for discharge home. Further recommendations to follow. Past Medical History Past Medical History: Asthma, Coronary Artery Disease (CAD), CVA/TIA, Diabetes Mellitus, Deep Vein Thrombosis (DVT), Hypertension, Myocardial Infarction (NE), Osteoarthritis (OA), Renal Disease, Thyroid Disorder Additional Past Medical History / Comment(s): TIA 8 yrs ago (2016)., 1997 pericarditis, diabetes-hx of insulin use., neuropathy feet, hx exertional asthma., seasonal allergies., bronchitis, TB with tx 1969 and L lung scarring., hiatal hernia, past esophageal strictures/dilations. , thyroid & parathyroid nodules., kidney stones., bronchospasm, currently has harsh cough- pt to call Drs office if cough does not subside., See Cardiology h & p. Last Myocardial Infarction Date:: 10/30/2019 History of Any Multi-Drug Resistant Organisms: None Reported Past Surgical History: Section, Cholecystectomy, Heart Catheterization With Stent, Hysterectomy, Joint Replacement, Orthopedic Surgery Additional Past Surgical History / Comment(s): 10/30/19 PCI with 3stents LAD/aspiration thrombectomy, bilateral knee arthroscopies, L shoulder rotator cuff repair, R shoulder frozen shoulder/manipulation and fractured, exploratory laparoscopy with endometrial scraping, R percutaneous nephrostolithotomy twice for stones, colonoscopies/benign polypectomies, esophageal dilations, Bilatera cataract removal/lens implant., right eye laser for clot., total right knee, left totl knee. 3 stents placed 10-30-2019 Past Anesthesia/Blood Transfusion Reactions: Motion Sickness Additional Past Anesthesia/Blood Transfusion Reaction / Comment(s): hx of blood transfusion after hysterectomy-no reaction Date of Last Stent Placement:: 10/30/2019 Past Psychological History: No Psychological Hx Reported Smoking Status: Never smoker Past Alcohol Use History: Rare Past Drug Use History: None Reported - Past Family History Mother History Unknown: Yes Family Medical History: No Reported History Additional Family Medical History / Comment(s): Mother at the age of 38 yrs after surgery Father Family Medical History: Myocardial Infarction (NE) Additional Family Medical History / Comment(s): Father= NE at the age of 65 yrs, then of a NE at the age of 83 yrs. Medications and Allergies Home Medications Medication Instructions Recorded Confirmed Type Aspirin 81 mg PO DAILY #30 chew 11/02/19 04/14/24 Rx Ranolazine [Ranexa] 500 mg PO DIRECTED 08/18/20 04/14/24 History Montelukast [Singulair] 10 mg PO HS 07/21/22 04/14/24 History Pravastatin Sodium [Pravachol] 80 mg PO DIRECTED 07/21/22 04/14/24 History Albuterol Inhaler [Ventolin Hfa 2 puff INHALATION RT-Q4H PRN 03/29/23 04/14/24 History Inhaler] Cetirizine HCl [Zyrtec] 10 mg PO DAILY 03/29/23 04/14/24 History glipiZIDE XL [Glucotrol XL] 5 mg PO DIRECTED 03/29/23 04/14/24 History Ipratropium-Albuterol Nebulize 3 ml INHALATION RT-QID 04/14/24 04/14/24 History [Duoneb 0.5 mg-3 mg/3 ml Soln] Isosorbide Mononitrate ER [Imdur] 30 mg PO DIRECTED 04/14/24 04/14/24 History Metoprolol Succinate (ER) [Toprol 12.5 mg PO DAILY 04/14/24 04/14/24 History Xl] Semaglutide [Ozempic] 0.25 mg SQ FR 04/14/24 04/14/24 History lisinopriL [Zestril] 20 mg PO DAILY 04/14/24 04/14/24 History Allergies Allergy/AdvReac Type Severity Reaction Status Date / Time No Known Allergies Allergy Verified 04/14/24 07:25 Physical Exam Vitals: Vital Signs Temp Pulse Resp BP Pulse Ox 04/14/24 09:01 53 L 18 103/71 98 04/14/24 07:33 68 18 128/74 97 04/14/24 06:46 56 L 18 107/72 95 04/14/24 04:49 97.4 F L 67 16 145/70 96 Intake and Output 04/13/24 04/14/24 04/14/24 22:59 06:59 14:59 Other: Weight 84.822 kg Results 04/14/24 05:03 04/14/24 05:53 Cardiac Enzymes 04/14/24 04/14/24 04/14/24 Range/Units 05:47 05:53 07:56 AST 22 (14-36) U/L Troponin I <0.012 <0.012 (0.000-0.034) ng/mL Coagulation 04/14/24 04/14/24 Range/Units 05:03 07:56 PT 10.8 (10.0-12.5) sec APTT 23.2 71.0 H (22.0-30.0) sec CBC 04/14/24 Range/Units 05:03 WBC 8.2 (3.8-10.6) k/uL RBC 5.50 H (3.80-5.40) m/uL Hgb 16.0 (11.4-16.0) gm/dL Hct 50.3 H (34.0-46.0) % Plt Count 248 (150-450) k/uL Comprehensive Metabolic Panel 04/14/24 Range/Units 05:53 Sodium 139 (137-145) mmol/L Potassium 4.7 (3.5-5.1) mmol/L Chloride 103 (98-107) mmol/L Carbon Dioxide 27 (22-30) mmol/L BUN 31 H (7-17) mg/dL Creatinine 0.71 (0.52-1.04) mg/dL Glucose 198 H (74-99) mg/dL Calcium 10.7 H (8.4-10.2) mg/dL AST 22 (14-36) U/L ALT 21 (4-34) U/L Alkaline Phosphatase 96 (38-126) U/L Total Protein 7.0 (6.3-8.2) g/dL Albumin 4.2 (3.5-5.0) g/dL Current Medications Generic Name Dose Route Start Last Admin Trade Name Freq PRN Reason Stop Dose Admin Al Hydroxide/Mg Hydroxide 30 ml 04/14/24 09:15 Mag Hydrox/Al Hydrox/Simeth 30 Ml Cup PO Q4HR PRN GI Upset Albuterol Sulfate 2.5 mg 04/14/24 08:32 Albuterol Nebulized 2.5 Mg/3 Ml INHALATION RT-Q4H PRN Shortness Of Breath Albuterol/Ipratropium 3 ml 04/14/24 12:00 Ipratropium-Albuterol 3 Ml Neb INHALATION RT-QID [facility] Aspirin 81 mg 04/15/24 09:00 Aspirin 81 Mg PO DAILY [facility] Dextrose/Water 25 ml 04/14/24 08:43 Dextrose 50% Syringe 50 Ml IVP PER PROTOCOL PRN Hypoglycemia Protocol Dextrose/Water 50 ml 04/14/24 08:43 Dextrose 50% Syringe 50 Ml IVP PER PROTOCOL PRN Hypoglycemia Protocol Heparin Sodium/Sodium Chloride 250 mls @ 10.179 mls/hr 04/14/24 07:00 07:31 25,000 unit/ Sodium Chloride IV 12 units/kg/hr .Q24H DORIS 10.179 mls/hr Administration Protocol 12 UNITS/KG/HR Magnesium Sulfate/Dextrose 1 100 mls @ 100 mls/hr 04/14/24 09:00 04/14/24 08:57 gm/ IV Solution IVPB 04/14/24 10:59 100 mls/hr Q1H [facility] Administration Insulin Human Lispro 0 unit 04/14/24 12:30 Insulin Lispro (Humalog) 100 Unit/Ml 10 Ml Vl SQ ACHS [facility] Protocol Isosorbide Mononitrate 30 mg 04/14/24 09:00 04/14/24 09:01 Isosorbide Mononitrate Er 30 Mg Tab.Er.24h PO Not Given DAILY [facility] Lisinopril 20 mg 04/14/24 09:00 04/14/24 09:02 Lisinopril 20 Mg Tab PO Not Given DAILY [facility] Metoprolol Succinate 12.5 mg 04/14/24 09:00 04/14/24 09:01 Metoprolol Succinate (Er) 25 Mg Tab.Er.24h PO Not Given DAILY [facility] Montelukast Sodium 10 mg 04/14/24 21:00 Montelukast 10 Mg Tab PO HS [facility] Morphine Sulfate 4 mg 04/14/24 06:58 Morphine Sulfate 4 Mg/Ml Syringe IV Q4HR PRN Chest Pain Nitroglycerin 0.4 mg 04/14/24 06:58 Nitroglycerin Sl Tabs 0.4 Mg Tab SUBLINGUAL Q5M PRN Chest Pain Pravastatin Sodium 80 mg 04/14/24 21:00 Pravastatin Sodium 80 Mg Tab PO [facility] Ranolazine 500 mg 04/14/24 09:00 04/14/24 08:59 Ranolazine 500 Mg Tab.Er.12h PO 500 mg BID DORIS Administration Intake and Output 04/13/24 04/14/24 04/14/24 22:59 06:59 14:59 Other: Weight 84.822 kg 04/14/24 05:03 04/14/24 05:53
--- NOTE | 2024-04-14 11:29 | P.HPIM ---
History of Present Illness H&P Date: 04/14/24 History of Presenting Illness: Patient is a very pleasant 74-year-old female with a past medical history of CAD status post previous stenting, hypertension, hyperlipidemia, type II vud-marmvgk-yzrgitwom diabetes mellitus, GERD, and previous esophageal stric tures status post dilation x 2. She presented to the emergency department with a chief complaint of chest pain. Patient reports feeling at baseline when she went to bed but states she was awoken from sleep around 3 AM with 7 out of 10 pain to epigastric region, midsternal and left anterior chest that seem to radiate down her left arm and was accompanied by shortness of breath and nausea.. She denies having any fevers, chills, headache, lightheadedness, dizziness, palpitations, cough or congestion, vomiting, or experiencing any numbness/tingling/weakness/swelling in her extremities. She currently reports chest pain has improved since arrival to our facility and currently rating 3-4 out of 10 at this time. Upon arrival to our facility, patient underwent evaluation in the emergency department. Vital signs upon arrival show blood pressure 145/70, heart rate 67, respiratory rate 16, temp 97.4 F, and SpO2 96% on room air. EKG completed showing sinus rhythm 69 bpm with frequent PVCs, n onspecific T wave abnormalities throughout inferior and lateral leads and slight ST elevation in leads I and aVL upon personal review and interpretation. Chest x-ray showing mild cardiomegaly but negative for acute cardiopulmonary process. Labs completed and reviewed. CBC showing no significant abnormalities. Coagulation profile normal findings. BMP showing mild prerenal azotemia with BUN of 31 otherwise normal findings. Blood glucose was elevated at 198. Magnesium was low at 1.6. Liver profile showing hyperbilirubinemia with total bili of 1.6. Troponin was negative at less than 0.012 and proBNP 143. Lipase was normal findings at 46. Patient was started on heparin infusion in the emergency department secondary to EKG changes. Patient admitted under services with consultation to cardiology. : Pertinent positives and negatives as discussed in HPI, a complete review of systems was performed and all other systems are negative. Physical exam: Vital signs reviewed and stable. General: Nontoxic, no distress and appears stated age. Derm: Skin warm and dry, normal coloration for ethnicity. Head: Atraumatic, normocephalic and symmetric. Eyes: EOM's intact, no lid lag, and anicteric sclera Mouth: no lip lesions, mucus membranes moist Cardiovascular: regular rate and rhythm with normal S1S2, systolic murmur, positive posterior tibial pulses bilaterally, and cap refill < 2 seconds. Lungs: Respirations even, regular, and unlabored on room air. Lungs CTA bilaterally, no rhonchi, no rales, no wheezing, and no accessory muscle usage. Abdominal: soft, nontender to palpation, no guarding, no appreciable organomegaly Ext: ROM intact. No gross muscle atrophy, no edema, no contractures Neuro: Speech clear, face symmetrical and CN II-XII grossly intact with no noted focal neuro deficits Psych: Alert and oriented to person, place, time, and situation. Appropriate and pleasant affect. Assessment and Plan of Care: Unstable angina with reports of chest pain and newly found nonspecific EKG changes History of CAD status post stenting Hypertension Hyperlipidemia -Cardiology consulted, appreciate recommendations -Continue heparin infusion with close monitoring of PTT every 6 hours for goal therapeutic range of 49 to 75 seconds. -Telemetry monitoring -Trend troponins -Continue cardiac medication regimen with aspirin 81 mg daily, isosorbide mononitrate 30 mg daily, lisinopril 20 mg daily, metoprolol 12.5 mg daily, pravastatin 80 mg nightly, and Ranexa 500 mg twice daily. -Lipid profile and hemoglobin A1c with a.m. labs. -Echocardiogram to be completed Type II rlz-qmzhwyo-ivxjomyed diabetes mellitus with hyperglycemia -Hold glipizide and Ozempic and placed patient on glycemic protocol with NovoLog sliding scale. Follow-up on hemoglobin A1c results. Data and imaging reviewed: As stated above in HPI CODE STATUS: Full code DVT prophylaxis: Heparin, infusion Anticipated discharge date: Pending clinical course Anticipated discharge place: Home Patient was seen independently by Nurse Practitioner. This document was prepared using Deed dictation software. Please allow for errors in hansard reporter while rare they do occur. Devon Humphries NP rendered care for this patient independently, reviewed the findings and plan as documented in the note above and agree with plan. I did not physically speak with or examine the patient on this date. Past Medical History Past Medical History: Asthma, Coronary Artery Disease (CAD), CVA/TIA, Diabetes Mellitus, Deep Vein Thrombosis (DVT), Hypertension, Myocardial Infarction (CT), Osteoarthritis (OA), Renal Disease, Thyroid Disorder Additional Past Medical History / Comment(s): TIA 8 yrs ago (2016)., 1998 pericarditis, diabetes-hx of insulin use., neuropathy feet, hx exertional asthma., seasonal allergies., bronchitis, TB with tx 1970 and L lung scarring., hiatal hernia, past esophageal strictures/dilations. , thyroid & parathyroid nodules., kidney stones., bronchospasm, currently has harsh cough- pt to call Drs office if cough does not subside., See Cardiology h & p. Last Myocardial Infarction Date:: 10/30/2019 History of Any Multi-Drug Resistant Organisms: None Reported Past Surgical History: Section, Cholecystectomy, Heart Catheterization With Stent, Hysterectomy, Joint Replacement, Orthopedic Surgery Additional Past Surgical History / Comment(s): 10/30/19 PCI with 3stents LAD/aspiration thrombectomy, bilateral knee arthroscopies, L shoulder rotator cuff repair, R shoulder frozen shoulder/manipulation and fractured, exploratory laparoscopy with endometrial scraping, R percutaneous nephrostolithotomy twice for stones, colonoscopies/benign polypectomies, esophageal dilations, Bilatera cataract removal/lens implant., right eye laser for clot., total right knee, left totl knee. 3 stents placed 10-30-2019 Past Anesthesia/Blood Transfusion Reactions: Motion Sickness Additional Past Anesthesia/Blood Transfusion Reaction / Comment(s): hx of blood transfusion after hysterectomy-no reaction Date of Last Stent Placement:: 10/30/2019 Past Psychological History: No Psychological Hx Reported Smoking Status: Never smoker Past Alcohol Use History: Rare Past Drug Use History: None Reported - Past Family History Mother History Unknown: Yes Family Medical History: No Reported History Additional Family Medical History / Comment(s): Mother at the age of 38 yrs after surgery Father Family Medical History: Myocardial Infarction (CT) Additional Family Medical History / Comment(s): Father= CT at the age of 65 yrs, then of a CT at the age of 83 yrs. Medications and Allergies Home Medications Medication Instructions Recorded Confirmed Type Aspirin 81 mg PO DAILY #30 chew 11/02/19 04/14/24 Rx Ranolazine [Ranexa] 500 mg PO BID 08/18/20 04/14/24 History Montelukast [Singulair] 10 mg PO HS 07/21/22 04/14/24 History Pravastatin Sodium [Pravachol] 80 mg PO HS 07/21/22 04/14/24 History Albuterol Inhaler [Ventolin Hfa 2 puff INHALATION RT-Q4H PRN 03/29/23 04/14/24 History Inhaler] Cetirizine HCl [Zyrtec] 10 mg PO DAILY 03/29/23 04/14/24 History Ipratropium-Albuterol Nebulize 3 ml INHALATION RT-QID 04/14/24 04/14/24 History [Duoneb 0.5 mg-3 mg/3 ml Soln] Isosorbide Mononitrate ER [Imdur] 30 mg PO DAILY 04/14/24 04/14/24 History Metoprolol Succinate (ER) [Toprol 12.5 mg PO DAILY 04/14/24 04/14/24 History Xl] Semaglutide [Ozempic] 0.25 mg SQ FR 04/14/24 04/14/24 History glipiZIDE XL [Glucotrol Xl] 10 mg PO BID 04/14/24 04/14/24 History lisinopriL [Zestril] 20 mg PO DAILY 04/14/24 04/14/24 History Allergies Allergy/AdvReac Type Severity Reaction Status Date / Time No Known Allergies Allergy Verified 04/14/24 07:25 Physical Exam Vitals: Vital Signs Temp Pulse Resp BP Pulse Ox 04/14/24 07:33 68 18 128/74 97 04/14/24 06:46 56 L 18 107/72 95 04/14/24 04:49 97.4 F L 67 16 145/70 96 Intake and Output 04/13/24 04/14/24 04/14/24 22:59 06:59 14:59 Other: Weight 84.822 kg Results CBC & Chem 7: 04/14/24 05:03 04/14/24 05:53 Labs: Abnormal Lab Results - Last 24 Hours (Table) 04/14/24 04/14/24 04/14/24 Range/Units 05:03 05:53 07:56 RBC 5.50 H (3.80-5.40) m/uL Hct 50.3 H (34.0-46.0) % APTT 71.0 H (22.0-30.0) sec BUN 31 H (7-17) mg/dL Glucose 198 H (74-99) mg/dL Calcium 10.7 H (8.4-10.2) mg/dL Total Bilirubin 1.6 H (0.2-1.3) mg/dL
[2024-04-14] MEDS: IPRATROPIUM-ALBUTEROL 3 ML NEB INHALATION SCH (11:36)
[2024-04-14] MEDS: INSULIN LISPRO (HumaLOG) 100 UNIT/ML 10 mL VL SQ SCH (12:39)
--- NOTE | 2024-04-14 14:35 | NM ---
EXAMINATION TYPE: NM stress lexiscan cardiolite DATE OF EXAM: 04/14/2024 COMPARISON: NONE CLINICAL INDICATION: Female, 74 years old with history of re cp; history of hypertension and diabetes . History of heart attack 2019. TECHNIQUE: After the intravenous administration of 10.3 mCi Tc 99m Sestamibi - Cardiolite resting SP ECT images acquired 55 minutes post injection. The patient received 0.4mg Lexiscan, 26.2 mCi Tc 99m Sestamibi - Stress images obtained [address] injection FINDINGS: Review of stress and rest SPECT images demonstrates large defect in the apex on stress and rest image s consistent with old infarct. There is suggestion of some reversible ischemia along the inferior lef t ventricular wall extending laterally in the mid to apical segments on short axis and vertical long axis images. There is elevated end-diastolic volume of 163 cc. There is estimated left ventricular ej ection fraction of 28 % diminished from the normal range. IMPRESSION: Evidence of significant old infarct or dilated cardiomyopathy. Cannot exclude some acute periInfarct ischemia and further investigation with direct catheter angiogram should be considered. [facility], , 04/14/2024 2:33 PM
[2024-04-14] MEDS: HEPARIN SODIUM 1,000 UN/ML (10ML VL) IVP ONE (16:01)
--- NOTE | 2024-04-14 16:45 | CA ---
Lexiscan Nuclear Stress Test Report Name: Pebbles Weber Exam Date: 04/14/2024 12:14 Exam Location: [facility] Stress Ht (in): 65 Wt (lb): 187 BSA: 1.92 Ordering Phys: Robert Inman DO Referring Phys: KAILEE, Technologist: David Lugo Age: 74 Gender: F : 1950 Procedure CPT: Indications: Reflex order-Stress test ICD-10 Codes: Patient History: CHEST PAIN, SRI, HTN, DIABETIC, PRIOR TIA, FAMILY HX OF HEART DISEASE, ANGINA, PRIOR AR, PRIOR CATH WITH STENTS X3, Medications: Meds past 24 hrs: Pretest Chest Pain: STRESS TEST Lexiscan Protocol Exercise Duration (min:sec): 01:[address] Depressions (mm): Angina Score: Haider Score: Resting HR (bpm): 58 Peak HR (bpm): 89 Resting BP (mmHg): 110 / 58 Peak BP (mmHg): 114 / 61 MPHR: 147 Target HR: 125 % MPHR: 61 METS: 1.0 Total Dose: Peak Dose: Atropine: Double Product: 10386 BP Response: Stress Termination: INFUSION COMPLETE Stress Symptoms: FLUSHED,NAUSEA,HEADACHE Stress Summary: ECG ANALYSIS Resting ECG: Stress ECG: CONCLUSIONS At baseline EKG showed normal sinus rhythm, left axis deviation, Q waves V1 and V2 with nonspecific T-wave flattening in the lateral leads. Patient recieved IV infusion of Lexiscan 0.4mg and at peak infusion EKG showed no significant change from baseline. Conclusions: 1. Nonspecific stress EKG portion secondary to baseline EKG abnormalities 2. Nuclear imaging to be reported separately. Dr. Robert Inman DO (Electronically Signed) Final Date: 14 April 2024 16:44
[2024-04-14 17:10] LABS: Glucose,Whole Blood 126 mg/dL (70-110)
[2024-04-14 20:49] LABS: Glucose,Whole Blood 131 mg/dL (70-110)
[2024-04-14] MEDS: MONTELUKAST 10 MG TAB PO SCH (20:51)
[2024-04-14] MEDS: PRAVASTATIN SODIUM 80 MG TAB PO SCH (20:51)
[2024-04-15 04:14] VITALS: RESP 16; TEMP 97.6
[2024-04-15 06:30] LABS: Glucose,Whole Blood 180 mg/dL (70-110)
[2024-04-15 08:30] VITALS: BP 147/68
[2024-04-15 08:42] LABS: HCT 48.4 % (37.2-46.3); HGB 16.2 g/dL (12.0-15.0); MCH 29.6 pg (27.0-32.0); MCHC 33.5 g/dL (32.0-37.0); MCV 88.5 FL (80.0-97.0); Mean Platelet Volume 10.7 FL (9.5-12.2); NRBC Per 100 WBC 0 X 10*3/uL (0.00-0.01); Platelet Count 229 X 10*3/uL (140-440); RBC 5.47 X 10*6/uL (4.10-5.20); RDW 11.6 % (11.5-14.5); WBC 8.14 X 10*3/uL (4.50-10.00)
[2024-04-15] MEDS ORDERED: ASPIRIN 325 MG TAB PO SCH (09:00)
[2024-04-15 09:41] LABS: BUN/Creat Ratio 34.57 Ratio (12.00-20.00); Blood Urea Nitrogen 24.2 mg/dL (9.0-27.0); Calcium 10.3 mg/dL (8.7-10.3); Carbon Dioxide 20.4 mmol/L (21.6-31.8); Chloride 107 mmol/L (96-109); Chol/HDL Ratio 3.46 Ratio; Glucose 187 mg/dL (70-110); Magnesium 1.7 mg/dL (1.5-2.4); Potassium 4.3 mmol/L (3.5-5.5); Sodium 140 mmol/L (135-145)
[2024-04-15] MEDS: ASPIRIN 81 MG PO SCH (10:23)
--- NOTE | 2024-04-15 10:26 | P.PN ---
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 She follows in the office with Dr. [place]. She states she had been feeling fine and then woke up from sleep at approximately 3 to 4 AM with more epigastric pain and nausea with some shortness of breath. She also had pain going down her left arm. She denies any prior similar symptoms. She had last heart catheterization March 2023 with known ELECTROMECHANICAL ENGINEER of the RCA with vybp-bh-otios collaterals and intermediate LAD disease. She has done fairly well since. She has been on Ozempic for a few months and does get bloated feeling and [place] at times however nothing similar to this and no recent changes to medications. EKG showed Q waves V1 through V6 as well as inferiorly with nonspecific ST changes and frequent PVCs. Given symptoms patient was started on heparin drip. She states originally her pain was approximately 7 and now down to approximately 3. Denies any diaphoresis. Troponins normal x 2. 04/15 Patient seen and examined. Patient states she feels completely back to normal. No significant chest or epigastric pain. She recently had an echo in the office. Lexiscan stress test performed which shows fixed apical anterior perfusion defect with some reversible inferior reversibility consistent with her known ELECTROMECHANICAL ENGINEER however no other reversibility. REVIEW OF SYSTEMS At the time of my exam: CONSTITUTIONAL: Denies fever or chills. CARDIOVASCULAR: + chest pain, +shortness of breath, no orthopnea, PND or palpitations. RESPIRATORY: Denies cough. GASTROINTESTINAL: Denies abdominal pain, diarrhea, constipation, nausea or vomiting. MUSCULOSKELETAL: Denies myalgias. NEUROLOGIC: Denies numbness, tingling or weakness. ENDOCRINE: Denies fatigue, weight change, polydipsia or polyurina. GENITOURINARY: Denies burning, hematuria or urgency with micturation. HEMATOLOGIC: Denies history of anemia or bleeding. PHYSICAL EXAMINATION Vital signs reviewed. CONSTITUTIONAL: No apparent distress. HEENT: Head is normocephalic. Pupils are equal, round. Sclerae anicteric. Mucous membranes of the mouth are moist. No JVD. No carotid bruit. CHEST EXAMINATION: Lungs are clear to auscultation. No chest wall tenderness is noted on palpation or with deep breathing. HEART EXAMINATION: Regular rate and rhythm. S1, S2 heard. No murmurs, gallops or rub. ABDOMEN: Soft, nontender. Positive bowel sounds. EXTREMITIES: 2+ peripheral pulses, no lower extremity edema and no calf tenderness. NEUROLOGIC EXAMINATION: Patient is awake, alert and oriented x3. ASSESSMENT Atypical epigastric pain as well as chest pain with some nausea and shortness of breath. Rule out unstable angina CAD with prior ELECTROMECHANICAL ENGINEER of RCA as well as PCI History of cardiomyopathy Diabetes mellitus type 2 Hypertension Hyperlipidemia Obesity Aortic stenosis PLAN Patient symptoms are atypical and stress test showing fixed perfusion defects and reversibility in the known ELECTROMECHANICAL ENGINEER however no other new reversibility. Therefore with symptoms improved would treat medically. If she has more symptoms may consider catheterization however stress test matching with her known CAD. Stop heparin drip and discharge later today. Objective - Vital Signs Vital signs: Vital Signs Temp 97.6 F 04/15/24 07:30 Pulse 66 04/15/24 07:47 Resp 16 04/15/24 07:30 BP 147/68 04/15/24 07:30 Pulse Ox 99 04/15/24 07:30 FiO2 Intake & Output 04/14/24 04/15/24 04/15/24 18:59 06:59 18:59 Intake Total 56.663 187.664 Balance 56.663 187.664 Weight 84.822 kg Intake: Intake, IV Titration 56.663 187.664 Amount Heparin Sod,Pork in 0.45% 56.663 187.664 NaCl 25,000 unit In 0.45 % NaCl 1 250ml.bag @ 12 UNITS/KG/HR 10.179 mls/hr IV .Q24H DORIS Rx#: [id number] Other: # Voids 3 - Labs CBC & Chem 7: 04/15/24 05:58 04/15/24 05:58 Labs: Abnormal Lab Results - Last 24 Hours (Table) 04/14/24 04/14/24 04/14/24 Range/Units 17:08 20:44 20:47 RBC (4.10-5.20) X 10*6/uL Hgb (12.0-15.0) g/dL Hct (37.2-46.3) % APTT 61.6 H (22.0-30.0) sec Carbon Dioxide (21.6-31.8) mmol/L Anion Gap (4.00-12.00) mmol/L BUN/Creatinine Ratio (12.00-20.00) Ratio Glucose (70-110) mg/dL POC Glucose (mg/dL) 126 H 131 H (70-110) mg/dL Hemoglobin A1c (<=6.0) % Triglycerides (0.00-149.00) mg/dL 04/15/24 04/15/24 04/15/24 Range/Units 05:58 05:58 05:58 RBC 5.47 H (4.10-5.20) X 10*6/uL Hgb 16.2 H (12.0-15.0) g/dL Hct 48.4 H (37.2-46.3) % APTT (22.0-30.0) sec Carbon Dioxide 20.4 L (21.6-31.8) mmol/L Anion Gap 12.60 H (4.00-12.00) mmol/L BUN/Creatinine Ratio 34.57 H (12.00-20.00) Ratio Glucose 187 H (70-110) mg/dL POC Glucose (mg/dL) (70-110) mg/dL Hemoglobin A1c 9.3 H (<=6.0) % Triglycerides 151.00 H (0.00-149.00) mg/dL 04/15/24 04/15/24 Range/Units 05:58 06:29 RBC (4.10-5.20) X 10*6/uL Hgb (12.0-15.0) g/dL Hct (37.2-46.3) % APTT 53.6 H (22.0-30.0) sec Carbon Dioxide (21.6-31.8) mmol/L Anion Gap (4.00-12.00) mmol/L BUN/Creatinine Ratio (12.00-20.00) Ratio Glucose (70-110) mg/dL POC Glucose (mg/dL) 180 H (70-110) mg/dL Hemoglobin A1c (<=6.0) % Triglycerides (0.00-149.00) mg/dL
[2024-04-15 11:19] VITALS: PULSE 70
--- NOTE | 2024-04-15 11:59 | P.DS ---
Providers Date of admission: 04/14/24 06:59 Expected date of discharge: 04/15/24 Attending physician: Maisha Potts MD Consults: 04/14/24 06:58 Consult Physician Routine Consulting Provider: Danna Sterling Consult Reason/Comments: cp Do you want consulting provider notified?: Yes Primary care physician: [facility] Course: Discharge Diagnosis: Unstable angina with reports of chest pain and newly found nonspecific EKG changes, troponins were trended all negative at less than 0.012 x 3 draws. Patient was evaluated by cardiology and taken for Lexiscan stress testing. Spikemaking Supervisor reporting Yolande scan report consistent with previous old fixed perfusion defect but no other new reversibility. Patient's symptoms of chest pain resolved. Heparin infusion was discontinued. Patient ambulating in the halls and had no further episodes of chest pain. Patient cleared from cardiac perspective for discharge recommending continued medical management with current cardiac medication regimen and outpatient follow-up in their office. History of CAD status post stenting Hypertension Hyperlipidemia Type II [id number]-[id number] diabetes mellitus with hyperglycemia Hospital Course: Patient is a very pleasant 74-year-old female with a past medical history of CAD status post previous stenting, hypertension, hyperlipidemia, type II usx-zeufqlh-hyijwkcqg diabetes mellitus, GERD, and previous esophageal strictures status post dilation x 2. She presented to the emergency department with a chief complaint of chest pain. Patient reports feeling at baseline when she went to bed but states she was awoken from sleep around 3 AM with 7 out of 10 pain to epigastric region, midsternal and left anterior chest that seem to radiate down her left arm and was accompanied by shortness of breath and nausea.. She denies having any fevers, chills, headache, lightheadedness, dizziness, palpitations, cough or congestion, vomiting, or experiencing any numbness/tingling/weakness/swelling in her extremities. She currently reports chest pain has improved since arrival to our facility and currently rating 3-4 out of 10 at this time. Upon arrival to our facility, patient underwent evaluation in the emergency department. Vital signs upon arrival show blood pressure 145/70, heart rate 67, respiratory rate 16, temp 97.4 F, and SpO2 96% on room air. EKG completed showing sinus rhythm 69 bpm with frequent PVCs, nonspecific T wave abnormalities throughout inferior and lateral leads and slight ST elevation in leads I and aVL upon personal review and interpretation. Chest x-ray showing mild cardiomegaly but negative for acute cardiopulmonary process. Labs completed and reviewed. CBC showing no significant abnormalities. Coagulation profile normal findings. BMP showing mild prerenal azotemia with BUN of 31 otherwise normal findings. Blood glucose was elevated at 198. Magnesium was low at 1.6. Liver profile showing hyperbilirubinemia with total bili of 1.6. Troponin was negative at less than 0.012 and proBNP 143. Lipase was normal findings at 46. Patient was started on heparin infusion in the emergency department secondary to EKG changes. Patient admitted under services with consultation to cardiology. Troponins trended and all negative at less than 0.012 x 3 draws. Patient was taken for Lexiscan stress testing which revealed evidence of significant old infarct or dilated cardiomyopathy and cannot exclude some acute iker-infarct ischemia and further direct catheter angiogram should be considered. Spikemaking Supervisor further reviewed and reporting Yolande scan report consistent with previous old fixed perfusion defect but no other new reversibility. Patient's symptoms of chest pain resolved. Heparin infusion was discontinued. Patient ambulating in the halls and had no further episodes of chest pain. Patient cleared from cardiac perspective for discharge recommending continued medical management with current cardiac medication regimen and outpatient follow-up in their office. Physical exam: Vital signs reviewed and stable. General: Nontoxic, no distress and appears stated age. Derm: Skin warm and dry, normal coloration for ethnicity. Head: Atraumatic, normocephalic and symmetric. Eyes: EOM's intact, no lid lag, and anicteric sclera Mouth: no lip lesions, mucus membranes moist Cardiovascular: regular rate and rhythm with normal S1S2, systolic murmur, positive posterior tibial pulses bilaterally, and cap refill < 2 seconds. Lungs: Respirations even, regular, and unlabored on room air. Lungs CTA bilaterally, no rhonchi, no rales, no wheezing, and no accessory muscle usage. Abdominal: soft, nontender to palpation, no guarding, no appreciable organomegaly Ext: ROM intact. No gross muscle atrophy, no edema, no contractures Neuro: Speech clear, face symmetrical and CN II-XII grossly intact with no noted focal neuro deficits Psych: Alert and oriented to person, place, time, and situation. Appropriate and pleasant affect. A total of 35 minutes of time were spent preparing this complex discharge summary. Pt was discharged on 04/15/24 at 11:58 AM. Patient was seen independently by Nurse Practitioner. This document was prepared using [employer] dictation software. Please allow for errors in phone operator while rare they do occur. Devon Humphries NP rendered care for this patient independently, reviewed the findings and plan as documented in the note above. I did not physically speak with or examine the patient on this date. Patient Condition at Discharge: Stable Plan - Discharge Summary Discharge Rx Participant: No New Discharge Prescriptions: Continue Aspirin 81 mg PO DAILY #30 chew Montelukast [Singulair] 10 mg PO HS Cetirizine HCl [Zyrtec] 10 mg PO DAILY Ipratropium-Albuterol Nebulize [Duoneb 0.5 mg-3 mg/3 ml Soln] 3 ml INHALATION RT-QID Semaglutide [Ozempic] 0.25 mg SQ FR glipiZIDE XL [Glucotrol XL] 10 mg PO BID Ranolazine [Ranexa] 500 mg PO BID Pravastatin Sodium [Pravachol] 80 mg PO HS Albuterol Inhaler [Ventolin Hfa Inhaler] 2 puff INHALATION RT-Q4H PRN PRN Reason: Shortness Of Breath lisinopriL [Zestril] 20 mg PO DAILY Metoprolol Succinate (ER) [Toprol XL] 12.5 mg PO DAILY Isosorbide Mononitrate ER [Imdur] 30 mg PO DAILY Discharge Medication List Aspirin 81 mg PO DAILY #30 chew 11/02/19 [Rx] Ranolazine [Ranexa] 500 mg PO BID 08/18/20 [History] Montelukast [Singulair] 10 mg PO HS 07/21/22 [History] Pravastatin Sodium [Pravachol] 80 mg PO HS 07/21/22 [History] Albuterol Inhaler [Ventolin Hfa Inhaler] 2 puff INHALATION RT-Q4H PRN 03/29/23 [History] Cetirizine HCl [Zyrtec] 10 mg PO DAILY 03/29/23 [History] Ipratropium-Albuterol Nebulize [Duoneb 0.5 mg-3 mg/3 ml Soln] 3 ml INHALATION R T-QID 04/14/24 [History] Isosorbide Mononitrate ER [Imdur] 30 mg PO DAILY 04/14/24 [History] Metoprolol Succinate (ER) [Toprol XL] 12.5 mg PO DAILY 04/14/24 [History] Semaglutide [Ozempic] 0.25 mg SQ FR 04/14/24 [History] glipiZIDE XL [Glucotrol XL] 10 mg PO BID 04/14/24 [History] lisinopriL [Zestril] 20 mg PO DAILY 04/14/24 [History] Follow up Appointment(s)/Referral(s): Asad Cuba MD [STAFF PHYSICIAN] - 1 Week Pastor Blackman DO [Primary Care Provider] - 1-2 days Patient Instructions/Handouts: Angina (DC) Activity/Diet/Wound Care/Special Instructions: Activity: As tolerated. Take breaks as needed. Diet: Heart healthy and carb consistent diet. Avoid salts, or foods with hidden salts such as canned or boxed foods and frozen dinners. Extra salt makes your heart work harder and traps the fluid in your body for longer. Special Instructions: Take all of your medications as directed and remember to keep all of your doctor's appointments and follow-up as needed. Thank you for allowing us to participate in your care, it was truly a pleasure having you for our patient!!!
== END 2024-04-15 12:40 | disposition home or self-care (01) | DRG 303 ==
LOC: EC 04:38 → OBSVTOIN 06:59 → 6NMEDSUR 06:59
PROVIDERS: ADMIT Internal Medicine; ATTEND Internal Medicine
DX: I25.110 Atherosclerotic heart disease of native coronary artery with unstable angina pectoris (principal); E11.40 Type 2 diabetes mellitus with diabetic neuropathy, unspecified; E66.9 Obesity, unspecified; I10 Essential (primary) hypertension; I35.0 Nonrheumatic aortic (valve) stenosis; I65.29 Occlusion and stenosis of unspecified carotid artery; J45.998 Other asthma; E11.65 Type 2 diabetes mellitus with hyperglycemia; E78.5 Hyperlipidemia, unspecified; M19.91 Primary osteoarthritis, unspecified site; K21.9 Gastro-esophageal reflux disease without esophagitis; E80.6 Other disorders of bilirubin metabolism; I49.3 Ventricular premature depolarization; I25.82 Chronic total occlusion of coronary artery; I25.5 Ischemic cardiomyopathy; Z68.31 Body mass index [BMI] 31.0-31.9, adult; Z79.82 Long term (current) use of aspirin; Z79.84 Long term (current) use of oral hypoglycemic drugs; Z79.899 Other long term (current) drug therapy; Z86.73 Personal history of transient ischemic attack (TIA), and cerebral infarction without residual deficits; Z95.5 Presence of coronary angioplasty implant and graft; I25.2 Old myocardial infarction; Z86.718 Personal history of other venous thrombosis and embolism
CPT/HCPCS: 36415; 71046; 78452; 80048; 80053; 80061; 83036; 83690; 83735; 83880; 84484; 85025; 85027; 85610; 85730; 93005; 93017; 94640; 96365; 96366; 96367; 96368; 99285

== ENCOUNTER → 2024-05-09 | Outpatient (CLI) | payer MEDICARE ==
[2024-05-09 08:13] LABS: Ionized Calcium 5.9 mg/dL (4.5-5.3)
[2024-05-09 10:53] LABS: Basophils # (A) 0.01 X 10*3/uL (0.00-0.10); Basophils % (A) 0.2 %; Eosinophils # (A) 0.06 X 10*3/uL (0.04-0.35); Eosinophils % (A) 0.9 %; HCT 43.7 % (37.2-46.3); HGB 14.2 g/dL (12.0-15.0); Lymphocytes # (A) 1.17 X 10*3/uL (0.90-5.00); Lymphocytes % (A) 17.9 %; MCH 29.8 pg (27.0-32.0); MCHC 32.5 g/dL (32.0-37.0); MCV 91.6 FL (80.0-97.0); Mean Platelet Volume 9.8 FL (9.5-12.2); Monocytes % (A) 7.7 %; NRBC Per 100 WBC 0 X 10*3/uL (0.00-0.01); Neutrophils # (A) 4.76 X 10*3/uL (1.80-7.70); Neutrophils % (A) 72.8 %; Platelet Count 227 X 10*3/uL (140-440); RBC 4.77 X 10*6/uL (4.10-5.20); RDW 11.9 % (11.5-14.5); WBC 6.53 X 10*3/uL (4.50-10.00)
[2024-05-09 11:25] LABS: ALT 16 U/L (8-44); AST 14 U/L (13-35); Albumin/Globulin Ratio 1.54 Ratio (1.60-3.17); Alkaline Phosphatase 87 U/L (41-126); BUN/Creat Ratio 29.38 Ratio (12.00-20.00); Blood Urea Nitrogen 23.5 mg/dL (9.0-27.0); Calcium 11.1 mg/dL (8.7-10.3); Chloride 106 mmol/L (96-109); Chol/HDL Ratio 3.64 Ratio; Globulin 2.6 g/dL (1.6-3.3); Glucose 205 mg/dL (70-110); LDL Cholesterol,Calculated 74.4 mg/dL (0.0-131.0); Magnesium 1.7 mg/dL (1.5-2.4); Potassium 4.8 mmol/L (3.5-5.5); Sodium 142 mmol/L (135-145); Total Bilirubin 1.4 mg/dL (0.3-1.2); Total Protein 6.6 g/dL (6.2-8.2)
== END | disposition home or self-care (01) ==
LOC: LABWHC1 07:09
PROVIDERS: ATTEND Internal Medicine
DX: E11.42 Type 2 diabetes mellitus with diabetic polyneuropathy (principal); E55.9 Vitamin D deficiency, unspecified; E21.3 Hyperparathyroidism, unspecified
CPT/HCPCS: 36415; 80053; 80061; 82306; 82330; 83036; 83735; 83970; 84443; 85025

== ENCOUNTER → 2024-05-30 | Outpatient (CLI) | payer MEDICARE ==
[2024-05-30 07:36] LABS: Ionized Calcium 5.2 mg/dL (4.5-5.3)
[2024-05-30 07:55] LABS: Magnesium 1.5 mg/dL (1.6-2.3); Phosphorus 3.8 mg/dL (2.5-4.5)
[2024-05-30 10:59] LABS: Basophils # (A) 0.02 X 10*3/uL (0.00-0.10); Basophils % (A) 0.3 %; Eosinophils # (A) 0.11 X 10*3/uL (0.04-0.35); Eosinophils % (A) 1.9 %; HCT 41.4 % (37.2-46.3); HGB 13.5 g/dL (12.0-15.0); Lymphocytes # (A) 1.33 X 10*3/uL (0.90-5.00); Lymphocytes % (A) 22.5 %; MCH 29.5 pg (27.0-32.0); MCHC 32.6 g/dL (32.0-37.0); MCV 90.4 FL (80.0-97.0); Monocytes # (A) 0.53 X 10*3/uL (0.20-1.00); NRBC Per 100 WBC 0 X 10*3/uL (0.00-0.01); Neutrophils # (A) 3.89 X 10*3/uL (1.80-7.70); Platelet Count 242 X 10*3/uL (140-440); RBC 4.58 X 10*6/uL (4.10-5.20); RDW 12.1 % (11.5-14.5)
== END | disposition home or self-care (01) ==
LOC: LABWHC1 06:52
PROVIDERS: ATTEND Internal Medicine
DX: E83.52 Hypercalcemia (principal)
CPT/HCPCS: 36415; 82330; 83735; 84100; 85025

== ENCOUNTER → 2024-09-01 | Outpatient (CLI) | payer MEDICARE ==
[2024-09-01 15:24] LABS: Basophils # (A) 0.02 X 10*3/uL (0.00-0.10); Basophils % (A) 0.3 %; Eosinophils # (A) 0.08 X 10*3/uL (0.04-0.35); Eosinophils % (A) 1.2 %; HCT 48.5 % (37.2-46.3); HGB 15.7 g/dL (12.0-15.0); Immature Grans, Automated 0.10 %; Lymphocytes # (A) 1.43 X 10*3/uL (0.90-5.00); Lymphocytes % (A) 21.3 %; MCH 29.9 pg (27.0-32.0); MCHC 32.4 g/dL (32.0-37.0); MCV 92.4 FL (80.0-97.0); Monocytes # (A) 0.59 X 10*3/uL (0.20-1.00); Monocytes % (A) 8.8 %; NRBC Per 100 WBC 0 X 10*3/uL (0.00-0.01); Neutrophils # (A) 4.58 X 10*3/uL (1.80-7.70); Neutrophils % (A) 68.3 %; Platelet Count 237 X 10*3/uL (140-440); RBC 5.25 X 10*6/uL (4.10-5.20); RDW 12.4 % (11.5-14.5); WBC 6.71 X 10*3/uL (4.50-10.00)
[2024-09-01 15:54] LABS: ALT 18 U/L (8-44); AST 21 U/L (13-35); Albumin 4.2 g/dL (3.8-4.9); Albumin/Globulin Ratio 1.75 Ratio (1.60-3.17); Alkaline Phosphatase 72 U/L (41-126); Anion Gap 11.30 mmol/L (4.00-12.00); BUN/Creat Ratio 32.56 Ratio (12.00-20.00); Blood Urea Nitrogen 29.3 mg/dL (9.0-27.0); Calcium 10.5 mg/dL (8.7-10.3); Carbon Dioxide 23.7 mmol/L (21.6-31.8); Chloride 105 mmol/L (96-109); Cholesterol 126.00 mg/dL (0.00-200.00); Globulin 2.4 g/dL (1.6-3.3); Glucose 141 mg/dL (70-110); HDL Cholesterol 39.70 mg/dL (40.00-60.00); LDL Cholesterol,Calculated 66.8 mg/dL (0.0-131.0); Magnesium 1.8 mg/dL (1.5-2.4); Potassium 4.5 mmol/L (3.5-5.5); Sodium 140 mmol/L (135-145); Total Protein 6.6 g/dL (6.2-8.2); Triglycerides 97.40 mg/dL (0.00-149.00); VLDL Calculation 19.48 mg/dL (5.00-40.00)
== END | disposition home or self-care (01) ==
LOC: LABWHC1 08:29
PROVIDERS: ATTEND Internal Medicine
DX: E11.42 Type 2 diabetes mellitus with diabetic polyneuropathy (principal); E78.5 Hyperlipidemia, unspecified; E55.9 Vitamin D deficiency, unspecified; E21.3 Hyperparathyroidism, unspecified
CPT/HCPCS: 36415; 80053; 80061; 82306; 83036; 83735; 83970; 84443; 85025